=== PATIENT | female | born 1965 | race Caucasian/White ===

== ENCOUNTER 2020-05-13 09:51 | Outpatient (REF) | payer BC, SELFPAY ==
--- NOTE | 2020-05-13 10:02 | XR_ITS ---
EXAMINATION: XR CHEST CLINICAL INFORMATION: Chest pain. COMPARISON: None TECHNIQUE: 2 views of the chest were obtained. FINDINGS: No significant abnormality is noted involving the heart, lungs, mediastinum, bony thorax or soft tissues. XR/XR chest 2V IMPRESSION: Unremarkable chest examination.
[2020-05-13 11:10] LABS: MANUAL DIFF FLAG NO
[2020-05-13 11:24] LABS: Basophils Percent Auto 0.4 % (0-2); Eosinophils Absolute Auto 0.2 X10*3/uL (0.0-0.4); Eosinophils Percent Auto 2.7 % (0-4); Hematocrit 41.3 % (37-47); Imm Gran Abs Auto 0.02 X10*3/uL (0.00-0.03); Imm Gran Pct Auto 0.3 % (0.0-0.4); Lymphocytes Absolute Auto 1.8 X10*3/uL (1.2-4.9); Lymphocytes Percent Auto 25.1 % (20-40); Mean Corpuscular HGB Conc 33.9 g/dl (31.0-35.0); Mean Corpuscular Hemoglobin 31.6 pg (27.0-33.0); Mean Corpuscular Volume 93.2 fL (80-98); Mean Platelet Volume 9.5 fL (9.4-12.3); Monocytes Absolute Auto 0.4 X10*3/uL (0.1-1.2); Neutrophils Absolute Auto 4.6 X10*3/uL (2.0-8.3); Neutrophils Percent Auto 65.5 % (45-73); Platelet Count 196 X10*3/uL (160-400); Red Blood Count 4.43 X10*6/uL (4.20-5.50); Red Cell Distribution Width 12.3 % (11.0-16.0)
[2020-05-13 11:34] LABS: B Type Natriuretic Peptide 144 pg/mL (<100); Troponin-I High Sensitivity 7.6 ng/L (<3.5-17.0)
[2020-05-13 11:39] LABS: Prothrombin Time 11.6 SEC (10.8-13.0)
[2020-05-13 11:41] LABS: Alanine Aminotransferase 14 U/L (0-31); Albumin Level 4.5 g/dL (3.5-5.0); Alkaline Phosphatase 59 U/L (39-117); Anion Gap 13 (12-20); Aspartate Amino Transferase 16 U/L (5-31); Bilirubin Total 0.4 mg/dL (0.0-1.0); Blood Urea Nitrogen 16 mg/dL (9-16); Calcium 8.9 mg/dL (8.4-10.2); Carbon Dioxide 26 mmol/L (22-29); Chloride 105 mmol/L (96-108); Estimated Glomerular Filt Rate > 60; Glucose Random 82 mg/dL (60-115); Potassium 4.1 mmol/L (3.3-5.1); Sodium 140 mmol/L (135-145); Total Protein 6.9 g/dL (6.5-8.0)
== END 2020-05-13 09:52 | disposition home or self-care (01) ==
LOC: HO.HMGCX 09:51
PROVIDERS: PCP Internal Medicine; Visit Provider Nurse Practitioner Family
DX: R07.9 Chest pain, unspecified (principal)
CPT/HCPCS: 36415; 71046; 80053; 83880; 84484; 85025; 85610

== ENCOUNTER 2020-05-14 05:51 | Emergency (ER) | payer BC, SELFPAY ==
--- NOTE | 2020-05-14 | ECG_ITS ---
Test Reason : REPEAT Blood Pressure : / mmHG Vent. Rate : 074 BPM Atrial Rate : 074 BPM P-R Int : 150 ms QRS Dur : 072 ms QT Int : 414 ms P-R-T Axes : 043 -01 086 degrees QTc Int : 459 ms Normal sinus rhythm Nonspecific ST and T wave abnormality Abnormal ECG When compared with ECG of 14-MAY-2020 05:55, T wave inversion less evident in Anterior leads Referred By: Generic ED Physician Electronically Signed By:FLAVIO VALADEZ
--- NOTE | 2020-05-14 05:55 | ECG_ITS ---
Test Reason : CP Blood Pressure : / mmHG Vent. Rate : 078 BPM Atrial Rate : 078 BPM P-R Int : 162 ms QRS Dur : 078 ms QT Int : 398 ms P-R-T Axes : 052 -02 089 degrees QTc Int : 453 ms Normal sinus rhythm ST & T wave abnormality, consider anterolateral ischemia Abnormal ECG When compared with ECG of 11-AUG-2010 06:31, T wave inversion no longer evident in Inferior leads T wave inversion now evident in Anterolateral leads Referred By: Abby Stubbs Electronically Signed By:FLAVIO VALADEZ
[2020-05-14 06:11] VITALS: BP 184/107; PULSE 80; RESP 16; O2SAT 99; BMI 31.4
--- NOTE | 2020-05-14 06:23 | XR_ITS ---
EXAMINATION: CHEST 1 VIEW CLINICAL INFORMATION: Chest pain. COMPARISON: 05/13/2020. TECHNIQUE: An AP view of the chest is provided. FINDINGS: The cardiac silhouette is not enlarged. The mediastinal and hilar contours are unremarkable. There are neither pleural effusions nor pneumothoraces. There are no consolidations. The osseous structures are unremarkable. XR/XR chest 1V IMPRESSION: No evidence for acute disease.
--- NOTE | 2020-05-14 06:24 | ED_ITS ---
HPI - Chest Pain General Chief Complaint: Chest Pain Stated Complaint: Chest pain Time Seen by Provider: 05/14/20 06:11 Source: patient Mode of arrival: ambulatory Limitations: no limitations History of Present Illness HPI narrative: Patient comes emergency room complaining of chest pain. Patient states she has had intermittent chest pain for the last 3 weeks, approximately 6 episodes in total. Patient states that usually she gets the chest pain around 3 in the morning, then self resolves. Today is the 2nd time in a row that she gets chest pain. Yesterday she went to see her primary care physician, labs and EKG were done, according to the patient she was told that her EKG was normal, labs were pending, but she was told to come to the emergency room if she had any further chest pain which she did. When patient arrived to the emergency room and she was getting an EKG done, she was still having chest pain, at this time, patient denies any chest pain which self-resolved. Patient denies diaphoresis or shortness of breath. Patient is known to have issues with high blood pressure, takes metoprolol and nifedipine, states she is compliant with her medication, took heard meds prior to arrival to the emergency room. MD complaint: chest pain Related Data Home Medications Medication Instructions Recorded Confirmed metoprolol succinate 200 mg 200 mg PO DAILY 03/10/20 04/21/20 tablet,extended release 24 hr Previous Rx's Medication Instructions Recorded metoprolol succinate 200 mg 200 mg PO DAILY 30 Days #30 tab 03/10/20 tablet,extended release 24 hr simvastatin 20 mg tablet 20 mg PO DAILY 90 Days #90 tab 03/27/20 lorazepam 0.5 mg tablet 0.5 mg PO DAILY PRN 30 Days #30 tab 04/21/20 omeprazole 20 mg capsule,delayed 20 mg PO DAILY 90 Days #90 cap 05/11/20 release sertraline 100 mg tablet 100 mg PO DAILY 90 Days #90 tab 05/11/20 omeprazole 40 mg capsule,delayed 40 mg PO DAILY #30 cap 05/13/20 release Allergies Allergy/AdvReac Type Severity Reaction Status Date / Time No Known Allergies Allergy Verified 04/20/20 14:23 Review of Systems Review of Systems: Constitutional : No Weight loss, No Fever, No Chills, No Night Sweats, No Fatigue, No Malaise ENT/Mouth : No Hearing loss, No Ear Pain, No Nasal Congestion, No Sinus Pain, No Hoarseness, No sore throat, No Rhinorrhea, No Swallowing Difficulty Eyes: No Eye Pain, No Swelling, No Redness, No Foreign Body, No Discharge, No Vision Changes Cardiovascular : Complaining of intermittent chest pain, No SOB, No Dyspnea on Exertion, No Orthopnea, No Edema, No Palpitations Respiratory : No Cough, No Sputum, No Wheezing, No Smoke Exposure, No Dyspnea Gastrointestinal : No Nausea, No Vomiting, No Diarrhea, No Constipation, No abdominal Pain, No Hematochezia, No Melena Genitourinary : no irregular bleeding, No Dysuria, No Urinary Frequency, No Hematuria, No Urinary Incontinence, No Urgency, No Flank Pain, No Urinary Flow Changes, No Hesitancy Musculoskeletal : No joint pain, No Myalgias, No Joint Swelling Skin : No Skin Lesions, No rash Neuro : No Weakness, No Numbness, No Paresthesias, No Loss of Consciousness, No Dizziness, No Headache Psych : No Anxiety/Panic, No Depression, No SI/HI/AH/VH, No Social Issues, Heme/Lymph: No Bruising, No Bleeding,No Lymphadenopathy Endocrine : No Polyuria, No Polydipsia, No Temperature Intolerance PMF Past Medical History Surgical History History of colonoscopy Status post lumbar microdiscectomy Family History Family History Father No problems noted. Mother No problems noted. Maternal Grandmother Unknown family medical history Maternal Grandfather Unknown family medical history Paternal Grandmother Unknown family medical history Brother No problems noted. Brother No problems noted. Sister No problems noted. Sister No problems noted. Sister No problems noted. Son No problems noted. Daughter No problems noted. Social History Social History Advance Directives: No Physical Exam Vital Signs: Vital Signs: Last Vital Signs Pulse 80 05/14/20 06:11 Resp 16 05/14/20 06:11 BP 184/107 H 05/14/20 06:11 Pulse Ox 99 05/14/20 06:11 Body Mass Index 31.4 Appearance: Alert. Oriented X3. No acute distress. Eyes: Pupils equal, round and reactive to light. ENT: Pharynx normal. Neck: Normal inspection. Neck supple. No lymph nodes noted. No crepitus CVS: Normal heart rate and rhythm. Pulses normal. Normal S1 and S2 Respiratory: No respiratory distress. Breath sounds normal. No Wheezing. No rales Abdomen: Soft and nontender. No rigidity. No distention. good BS x4 Skin: Skin warm and dry. Normal skin color. Normal skin turgor. Extremities: No lower extremity edema. No lower extremity edema. No Lacerations. No Rash Neuro: Oriented X 3. No motor deficit. No sensory deficit. Moving all extermities. No slurred speech. Course Course Course Narrative: At this time, patient is asymptomatic, patient resolved sh ortly after she arrived to the emergency room. Her EKG on arrival shows ST segment depression of 1 mm in leads V2 V3 V4, at this time we do not have any previous EKGs other than in 2010 which was normal. Two EKGs were obtained, 1 with chest pain and the 2nd EKG without chest pain, both of them look similar as mentioned above. Although labs are pending. Sign-out given to Dr. Siegel [facility] - Chest Pain Lab Data Result diagrams: 05/14/20 06:00 05/14/20 06:00 Labs: Lab Results 05/14/20 Range/Units 06:00 WBC 7.3 (4.8-10.8) X10*3/uL RBC 4.38 (4.20-5.50) X10*6/uL Hgb 13.9 (12.0-16.0) g/dl Hct 41.6 (37-47) % MCV 95.0 (80-98) fL MCH 31.7 (27.0-33.0) pg MCHC 33.4 (31.0-35.0) g/dl RDW 12.5 (11.0-16.0) % Plt Count 173 (160-400) X10*3/uL MPV 9.2 L (9.4-12.3) fL Immature Gran % (Auto) 0.3 (0.0-0.4) % Neut % (Auto) 70.4 (45-73) % Lymph % (Auto) 20.2 (20-40) % [place] % (Auto) 5.8 (2-11) % Eos % (Auto) 2.6 (0-4) % Baso % (Auto) 0.7 (0-2) % Lymph # (Auto) 1.5 (1.2-4.9) X10*3/uL [place] # (Auto) 0.4 (0.1-1.2) X10*3/uL Eos # (Auto) 0.2 (0.0-0.4) X10*3/uL Baso # (Auto) 0.1 (0.0-0.2) X10*3/uL Abs Immat Gran (auto) 0.02 (0.00-0.03) X10*3/uL Absolute Neuts (auto) 5.1 (2.0-8.3) X10*3/uL Absolute Nucleated RBC 0.000 (0.0-0.012) X10*3/uL Nucleated RBC % (auto) 0.0 (0.0-0.2) /100WBC ECG Data ECG #1: Attestation: I personally reviewed and interpreted this ECG as follows: (EKG 1: Sinus rhythm, heart rate 78, QTC 453, ST segment depressions in V2 V3 V4, T-wave inversion in V2 ) Discharge Plan Discharge Clinical Impression: Chest pain Prescriptions: No Action metoprolol succinate 200 mg tablet extended release 24 hr 200 mg PO DAILY RF: 0 Hold Instructions: duplicate metoprolol succinate 200 mg tablet extended release 24 hr 200 mg PO DAILY 30 Days Qty: 30 RF: 3 simvastatin 20 mg tablet 20 mg PO DAILY 90 Days Qty: 90 RF: 0 omeprazole 20 mg capsule,delayed release(DR/EC) 20 mg PO DAILY 90 Days Qty: 90 RF: 0 sertraline 100 mg tablet 100 mg PO DAILY 90 Days Qty: 90 RF: 0 omeprazole 40 mg capsule,delayed release(DR/EC) 40 mg PO DAILY Qty: 30 RF: 0 lorazepam 0.5 mg tablet 0.5 mg PO DAILY PRN (Reason: anxiety) 30 Days Qty: 30 RF: 2
[2020-05-14 06:33] LABS: Imm Gran Abs Auto 0.02 X10*3/uL (0.00-0.03); MANUAL DIFF FLAG SCAN; Monocytes Percent Auto 5.8 % (2-11); SCAN SMEAR FLAG 1
[2020-05-14 06:40] LABS: Basophils Absolute Auto 0.1 X10*3/uL (0.0-0.2); Basophils Percent Auto 0.7 % (0-2); Eosinophils Absolute Auto 0.2 X10*3/uL (0.0-0.4); Eosinophils Percent Auto 2.6 % (0-4); Hematocrit 41.6 % (37-47); Hemoglobin 13.9 g/dl (12.0-16.0); Imm Gran Pct Auto 0.3 % (0.0-0.4); Lymphocytes Absolute Auto 1.5 X10*3/uL (1.2-4.9); Lymphocytes Percent Auto 20.2 % (20-40); Mean Corpuscular HGB Conc 33.4 g/dl (31.0-35.0); Mean Corpuscular Hemoglobin 31.7 pg (27.0-33.0); Mean Platelet Volume 9.2 fL (9.4-12.3); Monocytes Absolute Auto 0.4 X10*3/uL (0.1-1.2); Neutrophils Absolute Auto 5.1 X10*3/uL (2.0-8.3); Neutrophils Percent Auto 70.4 % (45-73); Platelet Count 173 X10*3/uL (160-400); Red Blood Count 4.38 X10*6/uL (4.20-5.50); Red Cell Distribution Width 12.5 % (11.0-16.0); White Blood Count 7.3 X10*3/uL (4.8-10.8)
--- NOTE | 2020-05-14 06:41 | PC.NURSE ---
PT TO ED WITH C/O MID STERNAL CP WHICH STARTED ON & OFF X 1MONTH. PT ARRIVES ALERT, RESPIRATIONS EASY, N/L. SKIN W/D. PT ON MONITOR WITH HR 89. PT CHG INTO GOWN. MD AT BEDSIDE FOR EVAL. X-RAY IN ROOM FOR CXR. IV PLACED TO LAC, LABS DRAWN TO LAB. PT AWAITING FURTHER ORDERS. PT DENIES CP AT THIS TIME. WILL CONTINUE TO MONITOR PT.
[2020-05-14] MEDS: Aspirin Enteric Coated 325 MG TABLET.DR PO (07:00)
[2020-05-14 07:01] VITALS: BP 172/100; PULSE 70
[2020-05-14] MEDS: Labetalol HCL 100 MG/20 ML VIAL 10 MG IVPUSH (07:01)
[2020-05-14 07:05] LABS: Anion Gap 15 (12-20); Blood Urea Nitrogen 14 mg/dL (9-16); Calcium 9.2 mg/dL (8.4-10.2); Carbon Dioxide 27 mmol/L (22-29); Chloride 103 mmol/L (96-108); Creatinine Clr Calc Pharmacy 85.9; Estimated Glomerular Filt Rate > 60; Glucose Random 106 mg/dL (60-115); Potassium 4.2 mmol/L (3.3-5.1); Sodium 141 mmol/L (135-145)
[2020-05-14 07:12] LABS: B Type Natriuretic Peptide 121 pg/mL (<100); Troponin-I High Sensitivity 7.1 ng/L (<3.5-17.0)
[2020-05-14 07:19] VITALS: BP 165/121; PULSE 68; O2SAT 99
--- NOTE | 2020-05-14 07:22 | PC.NURSE ---
Addendum entered by Jeniffer Rodríguez 05/14/20 07:23: Pt reports she was seen at PCP office yesterday where lab and x ray were done. states her BP was elevated in office. no adjustments were made to meds at that time. Original Note: report taken form Melina SUTTON. pt resting comfortably on stretcher. reports no chest pain at this time. BP is elevated, but coming down, medicated by prior RN. will monitor BP.
[2020-05-14 08:03] VITALS: BP 161/94; PULSE 77; O2SAT 99
--- NOTE | 2020-05-14 08:05 | ECG_ITS ---
Test Reason : CHEST PAIN Blood Pressure : / mmHG Vent. Rate : 066 BPM Atrial Rate : 066 BPM P-R Int : 156 ms QRS Dur : 076 ms QT Int : 452 ms P-R-T Axes : 049 -02 097 degrees QTc Int : 473 ms Normal sinus rhythm Nonspecific ST and T wave abnormality Abnormal ECG When compared with ECG of 14-MAY-2020 06:29, No significant change was found Referred By: Abby Stubbs Electronically Signed By:FLAVIO VALADEZ
--- NOTE | 2020-05-14 08:41 | CA_ITS ---
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 The visually estimated ejection fraction is between 65-70%. - No obvious valvular pathology seen on this study. Findings Procedure Information Contrast agent, definity, is being given per protocol without apparent complications. Left Ventricle Normal left ventricular cavity size. There is normal left ventricular wall thickness. The left ventricular systolic function is normal. The visually estimated ejection fraction is between 65-70%. There is no evidence of regional wall motion abnormalities. Diastolic function is normal for age. Right Ventricle Normal right ventricular cavity size and systolic function. Atria Both atria are normal in size. Aortic Valve There is a normal trileaflet aortic valve. There is no aortic valve stenosis. There is no aortic valve regurgitation. Mitral Valve The mitral valve appears normal. There is mild mitral annular calcification. There is trace mitral valve regurgitation. There is no mitral valve stenosis. Pulmonic Valve The pulmonic valve was not well visualized. Tricuspid Valve Normal tricuspid valve structure. There is trace tricuspid valve regurgitation. The pulmonary artery systolic pressure is normal. Great Vessels The aortic annulus, sinuses of valsalva, and asc aorta are normal in size. Venous The inferior vena cava is normal in size and collapses greater than 50% with inspiration. Pericardium/Pleural There is no evidence of pericardial effusion. Prior Study Comparison No significant change compared to prior study dated: 11/25/2016. Recommendations, Care & Conclusions No obvious valvular pathology seen on this study. Measurements 2D Linear Measurements IVSd: 0.84 0.6-0.9/0.6-1.0 cm LVIDd: 4.41 3.9-5.3/4.2-5.9 cm LVIDd Index: 2.35 2.4-3.2/2.2-3.1 cm/m2 LVIDs: 3.01 2.0-3.6 cm LVPWd: 0.88 0.7-1.1 cm Ao Root: 3.00 2.1-3.5 cm LA Diam: 3.10 2.7-3.8/3.0-4.0 cm LAIDs Index: 1.65 1.5-2.3 cm/m2 LV Mass: 150.01 67-162/88-224 g LV Mass Index: 79.79 43-95/49-115 g/m2 LVOT Diam: 2.00 3.0+(-)1.3 cm 2D Systolic Function EF 4C: 72.60 >55% EF 2C: 66.20 >55% EF BiP: 69.10 >55% Mitral Valve MV Pk E: 1.00 MV PK A: 0.91 MV Decel Time: 266.00 E/A: 1.10 E'Lateral: 10.70 E'Medial: 6.74 E/E' Med: 14.80 E/E' Lat: 9.30 PHT: 78.00 MVA PHT: 2.82 Decel [place]: 3.77 Aortic Valve AoV Pk Rao: 1.55 AoV Mn Rao: 1.07 AoV VTI: 0.32 AoV Pk Grad: 10.00 Aov Mn Grad: 5.00 TRAVIS Cont.VTI: 3.18 LVOT LVOT Pk Rao: 1.47 LVOT Mn Rao: 0.98 LVOT VTI: 0.32 LVOT Pk Grad: 9.00 LVOT Mn Grad: 4.00 LVOT Diam: 2.00 LVOT Area: 3.14 Diastolic Function MV Pk E: 1.00 MV Pk A: 0.91 E/A: 1.10 E'Medial: 6.74 E/E' Med: 14.80 E' Laterial: 10.70 E/E' Lat: 9.30 Tricuspid Valve TR Pk Rao: 2.30 TR Pk Grad: 21.00 RA Press: 3.00 RVSP: 24.00 Great Vessels Aorta Ao Root-2D: 3.00 2.0-3.7 cm Ao Asc: 2.80 2.1-3.4 cm Ao Arch: 3.10 Updated in Other Vendor System with Status of Final Judah White MD electronically signed on 05/14/2020 11:51:26 AM with status of Final
[2020-05-14 09:19] VITALS: BMI 29.7
[2020-05-14] MEDS: Heparin Sodium,Porcine/1/2NS 25,000 UNIT/250 ML IV.SOLN 10.26 UNIT IVCONT (09:28)
[2020-05-14 09:31] VITALS: BP 188/93; PULSE 69
[2020-05-14] MEDS: Atorvastatin Calcium 80 MG TABLET PO (09:31)
[2020-05-14] MEDS: Metoprolol Tartrate 50 MG TABLET PO (09:31)
[2020-05-14 09:53] LABS: Hematocrit 40.4 % (37-47); Mean Corpuscular HGB Conc 34.7 g/dl (31.0-35.0); Mean Corpuscular Volume 92.2 fL (80-98); Mean Platelet Volume 9.1 fL (9.4-12.3); Platelet Count 166 X10*3/uL (160-400); Red Blood Count 4.38 X10*6/uL (4.20-5.50); Red Cell Distribution Width 12.4 % (11.0-16.0); White Blood Count 7.9 X10*3/uL (4.8-10.8)
[2020-05-14 10:01] LABS: Prothrombin Time 11.8 SEC (10.8-13.0)
[2020-05-14 10:01] LABS: COVID-19 Test Negative (Negative); IDNOW Serial# 9DD0AD1C
--- NOTE | 2020-05-14 10:41 | PC.NURSE ---
@10:32AM BLAKE FROM [facility] PT PLACEMENT CALLS FOR COVID RESULTS TOLD THE WERE NEGATIVE, [place] THEY WILL CALL BACK WITH ROOM ASSIGNMENT SOON
--- NOTE | 2020-05-14 10:51 | PC.NURSE ---
@1050AM BLAKE CALLS FROM [facility] WITH ROOM ASSIGNMENT AND ACCEPTING MD DR BONILLA ACCEPTING TO [facility], ROOM 7 RN TO RN [phone]
--- NOTE | 2020-05-14 10:53 | P.CONCA_ITS ---
History of Present Illness History of Present Illness Date of Service: 05/14/20 Consult reason: chest pain Chief complaint: Chest pain Narrative: This is a cardiology consultation regarding chest pain. Patient does not have any known cardiac problems. No history of any coronary disease myocardial infarction or cardiomyopathy or in fact anything else cardiac in her past. She has had hypertension for more than 30 years. Otherwise she also has elevated lipids on statins. She is a chronic smoker. For the last 3 weeks, she has been having episodes of chest discomfort in the substernal area. She also has bilateral shoulder discomfort. These happen primarily at night times. Overall, has happened about 5-6 times. Hence she presented to the ER for evaluation. Review of Systems Review of Systems: Yes all other systems are reviewed and are negative Cardiovascular: Cardiovascular: Reports as per HPI, Reports no additional cardiovascular complaints, Denies acrocyanosis, Denies cool extremities, Denies painful fingertips, Reports chest pain, Denies chest pain at rest, Denies diaphoresis, Denies syncope, Denies irregular heart rhythm, Denies claudication, Denies leg edema, Denies lightheadedness, Denies palpitations and Denies dyspnea Respiratory: Respiratory: Denies dyspnea Neurologic: Denies syncope Endocrine: Endocrine: Denies palpitations PMFSH Family History Family History Father No problems noted. Mother No problems noted. Maternal Grandmother Unknown family medical history Maternal Grandfather Unknown family medical history Paternal Grandmother Unknown family medical history Brother No problems noted. Brother No problems noted. Sister No problems noted. Sister No problems noted. Sister No problems noted. Son No problems noted. Daughter No problems noted. Surgical History Surgical History History of colonoscopy Status post lumbar microdiscectomy Social History Social History Smoking Status: Current every day smoker Use of substances other than those prescribed or required for medical reasons: No Advance Directives: No Meds Allergies Allergy/AdvReac Type Severity Reaction Status Date / Time No Known Allergies Allergy Verified 04/20/20 14:23 Home Medications Medication Instructions Recorded Confirmed Type metoprolol succinate 200 mg 200 mg PO DAILY 03/10/20 04/21/20 History tablet,extended release 24 hr Physical Exam Vital Signs: Vital Signs: Last Vital Signs Pulse 69 05/14/20 09:31 Resp 16 05/14/20 06:11 BP 188/93 H 05/14/20 09:31 Pulse Ox 99 05/14/20 08:03 Body Mass Index 29.7 Const: General: cooperative, comfortable and no acute distress Orientation/consciousness: patient oriented x3 HENMT: Other: Unremarkable Neck: Neck: Yes normal visual inspection Chest: Chest palpation & inspection: normal inspection of the chest Resp: Auscultation: clear to auscultation bilaterally, no crackles and no wheezes Cardio: Jugular venous distension: no JVD Palpation: normal PMI Heart sounds: S1 normal heart sound present, S2 normal heart sound present, no gallops, Murmur heart sound present systolic early, I/ and at the right sternal border and no rubs GI: Palpation (GI): Soft to palpation Back/Spine/Pelvis: Other: unremarkable Skin: General skin exam: no rashes or lesions noted Neuro: General: patient oriented x3 Extrem: General: Yes no clubbing, cyanosis or edema Psych: Mental Status: mental status grossly normal Results Labs and Meds Result diagrams: 05/14/20 09:38 05/14/20 06:00 Lab results: Laboratory Results - last 24 hr 05/14/20 05/14/20 05/14/20 06:00 06:00 06:00 WBC 7.3 RBC 4.38 Hgb 13.9 Hct 41.6 MCV 95.0 MCH 31.7 MCHC 33.4 RDW 12.5 Plt Count 173 MPV 9.2 L Immature Gran % (Auto) 0.3 Neut % (Auto) 70.4 Lymph % (Auto) 20.2 [place] % (Auto) 5.8 Eos % (Auto) 2.6 Baso % (Auto) 0.7 Lymph # (Auto) 1.5 [place] # (Auto) 0.4 Eos # (Auto) 0.2 Baso # (Auto) 0.1 Abs Immat Gran (auto) 0.02 Absolute Neuts (auto) 5.1 Absolute Nucleated RBC 0.000 Nucleated RBC % (auto) 0.0 Smear Tech's Comments Not Reportable PT INR PTT (Heparin Protocol) Sodium 141 Potassium 4.2 Chloride 103 Carbon Dioxide 27 Anion Gap 15 BUN 14 Creatinine 0.79 Estim Creat Clear Calc 85.9 Estimated GFR > 60 Random Glucose 106 Calcium 9.2 Troponin I High Sens 7.1 B-Natriuretic Peptide 121 H COVID-19 ([facility]) COVID-19 Clin Com 05/14/20 05/14/20 05/14/20 09:38 09:38 09:39 WBC 7.9 RBC 4.38 Hgb 14.0 Hct 40.4 MCV 92.2 MCH 32.0 MCHC 34.7 RDW 12.4 Plt Count 166 MPV 9.1 L Immature Gran % (Auto) Neut % (Auto) Lymph % (Auto) [place] % (Auto) Eos % (Auto) Baso % (Auto) Lymph # (Auto) [place] # (Auto) Eos # (Auto) Baso # (Auto) Abs Immat Gran (auto) Absolute Neuts (auto) Absolute Nucleated RBC 0.000 Nucleated RBC % (auto) 0.0 Smear Tech's Comments PT 11.8 INR 1.0 PTT (Heparin Protocol) 31.0 L Sodium Potassium Chloride Carbon Dioxide Anion Gap BUN Creatinine Estim Creat Clear Calc Estimated GFR Random Glucose Calcium Troponin I High Sens B-Natriuretic Peptide COVID-19 ([facility]) Negative COVID-19 Clin Com See Note ECG Attestation: I personally reviewed and interpreted this ECG as follows: Interpretation: EKG with sinus rhythm and anterolateral ST sagging with T inversions in aVL. Imaging Radiologist's impression: Impressions Chest X-Ray 05/14/20 06:23 IMPRESSION: No evidence for acute disease. Assessment and Plan (1) Unstable angina: Status: Acute (2) Hypertension, essential: Status: Acute 3 weeks of intermittent chest pain associated with bilateral shoulder pain; EKG with anterolateral ischemia. Troponins are 7.1 and 7.6 (high sensitivity troponin I). She will need to be treated as unstable angina/acute coronary syndrome. Discussed about cardiac catheterization as next step and she is agreeable. Discussed with [facility] and they will accept her. We can start her on IV heparin drip. Continue aspirin. Overall beta-blockers. High-dose st atins. We will try to get an echocardiogram as well for LVEF and wall motion.
[2020-05-14 11:19] VITALS: BP 181/95; PULSE 64; RESP 17; O2SAT 97
== END 2020-05-14 11:28 | disposition short-term general hospital (02) ==
PROVIDERS: Emergency Medicine; Emergency Provider Emergency Medicine; PCP Internal Medicine
DX: I20.0 Unstable angina (principal); I10 Essential (primary) hypertension; R07.9 Chest pain, unspecified; Z79.899 Other long term (current) drug therapy; Z20.822 Contact with and (suspected) exposure to COVID-19
CPT/HCPCS: 36415; 71045; 80048; 83880; 84484; 85025; 85027; 85610; 85730; 87635; 93005; 93306; 96365; 96366; 96375; 99285; Q9957

== ENCOUNTER 2020-05-30 12:34 | Outpatient (REF) | payer BC, SELFPAY ==
--- NOTE | ~2020-05-30 | MM_ITS ---
EXAMINATION: MM SCREENING DIGITAL BREAST TOMOSYNTHESIS, BILATERAL CLINICAL INFORMATION: Screening. Asymptomatic. The lifetime risk of breast cancer based on the Tyrer-Cuzick Model is 8%. COMPARISON: Mammography: 08/14/2018, 07/05/2017 TECHNIQUE: Digital breast tomosynthesis is performed in both the craniocaudal and mediolateral oblique views along with computer-aided detection (CAD). Synthesized 2D images are generated from the tomosynthesis. FINDINGS: The breasts are almost entirely fatty (ACR BI-RADS breast composition Category a). There are no significant masses, abnormal calcifications, or other abnormalities. Parenchymal pattern is similar to prior studies. No significant changes. MM/MM tomosynthesis screening BI IMPRESSION: No mammographic evidence of malignancy. ASSESSMENT: BI-RADS 1: Negative RECOMMENDATION: Routine annual mammography screening. This patient's information was entered into a reminder system with a target due date for their next mammogram.
== END 2020-05-30 12:35 | disposition home or self-care (01) ==
LOC: HO.MAMMO 12:34
PROVIDERS: PCP Internal Medicine; Visit Provider Internal Medicine
DX: Z12.31 Encounter for screening mammogram for malignant neoplasm of breast (principal)
CPT/HCPCS: 77063; 77067

== ENCOUNTER → 2020-06-18 14:20 | Outpatient (BNVA) | payer BC, SELFPAY | PROVIDERS: PCP Internal Medicine; Visit Provider Internal Medicine ==

== ENCOUNTER → 2020-08-06 12:48 | Outpatient (BNVA) | payer BC, SELFPAY | PROVIDERS: PCP Internal Medicine; Visit Provider Physician Assistant ==

== ENCOUNTER 2020-08-14 06:06 | Outpatient (REF) | payer BC, SELFPAY ==
--- NOTE | ~2020-08-14 | FL_ITS ---
EXAMINATION: FL BARIUM SWALLOW CLINICAL INFORMATION: Gastroesophageal reflux disease without esophagitis. COMPARISON: None TECHNIQUE: Barium swallow examination is performed using fluoroscopic evaluation in addition to multiple fluoroscopic spot views. The patient is imaged both upright and prone and using both thick and thin sulfate along with effervescent granules. Fluoroscopy time: 2.2 minutes DAP: 22.106 Gycm2 Images: 45 FINDINGS: Following oral administration of thick barium and barium-coated turkey, there is normal propagation of bolus from the oral cavity through the pharynx, esophagus into stomach without any evidence of obstruction, narrowing or stricture. The course and the caliber of the esophagus is normal. The peristalsis is diminished with moderate retention of fluid within the dependent portion of esophagus which clears extremely slowly with thin barium. The gastroesophageal junction is widely patent. On administration of thin barium in prone position, there is good distention of esophagus without any intraluminal filling defect. Minimal gastroesophageal reflux was seen in supine view. No hiatal hernia noted. FL/FL barium swallow IMPRESSION: Moderate retention of barium-coated turkey/solid food in the mid esophagus in upright view likely secondary to slow or diminished peristalsis. The food cleared with oral administration of thin barium. The GE junction is widely patent. Likely minimal gastroesophageal reflux but no hiatal hernia. The esophagus is otherwise unremarkable.
[2020-08-14 12:00] LABS: Alanine Aminotransferase 41 U/L (0-31); Albumin Level 4.3 g/dL (3.5-5.0); Alkaline Phosphatase 95 U/L (39-117); Anion Gap 13 (12-20); Aspartate Amino Transferase 32 U/L (5-31); Bilirubin Direct 0.3 mg/dL (0.0-0.5); Bilirubin Total 0.5 mg/dL (0.0-1.0); Blood Urea Nitrogen 17 mg/dL (9-16); Calcium 9.1 mg/dL (8.4-10.2); Carbon Dioxide 26 mmol/L (22-29); Chloride 106 mmol/L (96-108); Cholesterol 183 mg/dL; Estimated Glomerular Filt Rate > 60; Glucose Fasting 94 mg/dL (60-99); HDL Cholesterol 61 mg/dL; LDL Cholesterol Calculated 105 mg/dl; Potassium 4.2 mmol/L (3.3-5.1); Sodium 141 mmol/L (135-145); Total Protein 6.6 g/dL (6.5-8.0); Triglycerides 86 mg/dL
== END 2020-08-14 06:07 | disposition home or self-care (01) ==
LOC: HO.XRAY 06:06
PROVIDERS: PCP Internal Medicine; Referring Provider Internal Medicine; Visit Provider Physician Assistant
DX: R07.9 Chest pain, unspecified (principal); K21.9 Gastro-esophageal reflux disease without esophagitis; I10 Essential (primary) hypertension; F41.1 Generalized anxiety disorder; E78.9 Disorder of lipoprotein metabolism, unspecified
CPT/HCPCS: 36415; 74220; 80048; 80061; 80076

== ENCOUNTER → 2020-08-20 14:24 | Outpatient (BNVA) | payer BC, SELFPAY | PROVIDERS: PCP Internal Medicine; Visit Provider Internal Medicine ==

== ENCOUNTER → 2020-09-10 12:25 | Outpatient (BNVA) | payer BC, SELFPAY | PROVIDERS: PCP Internal Medicine; Visit Provider Physician Assistant ==

== ENCOUNTER 2020-09-18 12:24 | Day surgery (SDC) | payer BC, SELFPAY ==
[2020-09-14 15:38] VITALS: BMI 29.2
--- NOTE | 2020-09-16 14:14 | P.CONAN_ITS ---
Documented by User: Aimee Ruth 09/16/20 14:19 HPI - Anesthesia Eval Consult details Narrative: 55yo F for Upper Endoscopy s/p cath 05/2020 with stent Brillinta/ASA for coronary stent 05/2020 [facility] Active Problems Active Problems: All Active Problems (Updated 09/14/20 @ 15:35 by Basilia Izaguirre) Hypertension, essential (Acute) Anxiety, generalized (Acute) Lipid disorder (Acute) Chronic GERD (Acute) Chest pain (Acute) Unstable angina (Acute) Hospital discharge follow-up (Acute) Dysphagia (Acute) Smoking (Acute) Other and unspecified hyperlipidemia (Acute) Essential hypertension (Acute) Atherosclerotic cardiovascular disease (Acute) Past Medical History Medical History Anxiety Atherosclerotic cardiovascular disease Dysphagia Essential hypertension GERD (gastroesophageal reflux disease) Hyperlipidemia On beta hina at home Other and unspecified hyperlipidemia Smoking Family History Family History (Reviewed 09/10/20 @ 12:33 by Teri Ignacio [facility]) Father Crohn's disease Colon cancer, Onset Age: 70 Mother No problems noted. Maternal Grandmother Unknown family medical history Maternal Grandfather Unknown family medical history Paternal Grandmother Unknown family medical history Brother No problems noted. Brother No problems noted. Sister No problems noted. Sister No problems noted. Sister No problems noted. Son No problems noted. Daughter No problems noted. Surgical History Surgical History H/O heart artery stent History of colonoscopy Status post lumbar microdiscectomy Social History Social History (Updated 09/10/20 @ 12:33 by Teri Ignacio [facility]) Household Members: Spouse Alcohol intake: current Alcohol intake frequency: holidays/special occasions only Patient Tobacco Use Status: Former Tobacco user Quit Date: 05/14/20 Tobacco use type: Cigarette Use of substances other than those prescribed or required for medical reasons: No Are you DNR?: No Advance Directives: No Advance Directives Information Provided: Yes Current occupational status: employed Current occupation: [employer] Allergies Allergy/AdvReac Type Severity Reaction Status Date / Time No Known Allergies Allergy Verified 09/14/20 15:36 Home Medications Medication Instructions Recorded Confirmed Last Taken Type aspirin 81 mg tablet,delayed 81 mg PO DAILY 06/18/20 09/14/20 Unknown History release nifedipine 60 mg tablet,extended 60 mg PO DAILY 06/18/20 09/14/20 Unknown History release Exam Exam Date and Time: September 16, 2020 1414 Height,Weight and Vital Signs: Height 5 ft 5 in Weight 79.832 kg Pertinent Lab Results Pertinent Lab Results: Laboratory Tests 05/14/20 08/14/20 09:38 06:10 WBC 7.9 Hgb 14.0 Hct 40.4 Plt Count 166 Sodium 141 Potassium 4.2 Chloride 106 Carbon Dioxide 26 BUN 17 H Creatinine 0.84 Narrative Narrative: Echo 05/2020 Conclusions: - The left ventricular systolic function is normal. The visually estimated ejection fraction is between 65-70%. - No obvious valvular pathology seen on this study. EKG 05/2020 NSR @ 65 Documented by User: Jaja Rubin 09/18/20 12:59 [facility] Past Medical History Medical History Anxiety Atherosclerotic cardiovascular disease Dysphagia Essential hypertension GERD (gastroesophageal reflux disease) Hyperlipidemia On beta hina at home Other and unspecified hyperlipidemia Smoking Family History Family History (Reviewed 09/10/20 @ 12:33 by Teri Ignacio [facility]) Father Crohn's disease Colon cancer, Onset Age: 70 Mother No problems noted. Maternal Grandmother Unknown family medical history Maternal Grandfather Unknown family medical history Paternal Grandmother Unknown family medical history Brother No problems noted. Brother No problems noted. Sister No problems noted. Sister No problems noted. Sister No problems noted. Son No problems noted. Daughter No problems noted. Surgical History Surgical History H/O heart artery stent History of colonoscopy Status post lumbar microdiscectomy Social History Social History (Updated 09/10/20 @ 12:33 by Teri Ignacio [facility]) Household Members: Spouse Alcohol intake: current Alcohol intake frequency: holidays/special occasions only Patient Tobacco Use Status: Former Tobacco user Quit Date: 05/14/20 Tobacco use type: Cigarette Use of substances other than those prescribed or required for medical reasons: No Are you DNR?: No Advance Directives: No Advance Directives Information Provided: Yes Current occupational status: employed Current occupation: [employer] Allergies Allergy/AdvReac Type Severity Reaction Status Date / Time No Known Allergies Allergy Verified 09/14/20 15:36 Home Medications Medication Instructions Recorded Confirmed Last Taken Type aspirin 81 mg tablet,delayed 81 mg PO DAILY 06/18/20 09/14/20 Unknown History release nifedipine 60 mg tablet,extended 60 mg PO DAILY 06/18/20 09/14/20 Unknown History release Exam Airway Mallampati Class: II (Cap bottom left) TM Dist: >3cm Partial: Upper (Perm) Heart: rrr Lungs: cta Assessment and Plan Assessment Anesthesia Assessment: Anesthesia Plan Discussed and Chart Reviewed Final Anesthetic Review NPO: Yes ASA Class: III Final Preanesthetic Review: No Changes in Pt Med Stat and Consent Obta ined/Reviewed Patient Risk: Intermediate Procedure Risk: Intermediate Anesthetic Plan Anesthetic Plan: MAC: Disposition: Standard PACU
[2020-09-18 12:39] VITALS: BP 143/84; PULSE 67; RESP 16; TEMP 35.7; O2SAT 98; BMI 29.7
[2020-09-18] MEDS: Lactated Ringers 1,000 ML 100 ML IVCONT (12:48)
--- NOTE | 2020-09-18 13:10 | P.OP_ITS ---
Operative Note Operative Note Date of Service: 09/18/20 Narrative: Pre-op diagnosis: GERD, atypical chest pain, dysphagia Post-op diagnosis: other (GERD, nodular gastritis, duodenal nodule) Procedure: FLEXIBLE TRANSORAL UPPER GASTROINTESTINAL ENDOSCOPY Consent: Indications for the procedure and potential complications of bleeding, perforation, reaction to medications and missed diagnosis were discussed with the patient and informed consent was obtained. Instrument: Olympus GIF H 190 mid size upper endoscope Monitoring: Vital signs and clinical assessment, continuous EKG monitoring, Pulse oximetry, Carbon Dioxide monitoring and blood pressure monitoring were done throughout the procedure. Procedure: The patient was placed in the left lateral decubitis position and pre-procedure medications were administered and a bite block was placed. The endoscope was inserted into the mouth and advanced under direct vision to the third part of duodenum. A careful inspection was made as the upper endoscope was withdrawn including a retroflexed examination of the proximal stomach; Findings and interventions are described below. Findings: Larynx: Normal Esophagus: Tortuous esophagus with increased tertiary contractions without stricture or ring. GE junction at 36 cms. No esophagitis or [place] Stomach: Moderate gastric erythema with nodular appearing mucosa in the gastric antrum. Grade 2 flap valve on retroflexed examination of the cardia. 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 And normal descending duodenum Intervention: No interventions since patient is unable to discontinue oral anticoagulation Impression and Post Procedure Diagnosis: Endoscopy Findings: ESOPHAGUS: Tortuous esophagus with increased tertiary contractions without stricture or ring. 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 And normal descending duodenum Chest pain is likely due to esophageal motility disorder. Plan: Patient advised to call the GI clinic at [phone] to schedule a follow-up appointment with KEATON Luis. I would advise scheduling a repeat endoscopy in 6-7 months once patient is able to stop her anticoagulation. Surgeon: Elda Muñoz MD Was an Software Support Technician used for this Procedure?: No Software Support Technician: Ilana Jimenez Estimated blood loss (mL): 0 Pathology: none sent Condition: stable Disposition: PACU
--- NOTE | 2020-09-18 13:10 | MHC.SHP ---
Pre-Procedural Eval Section A The patient is an INPATIENT: No Changes since office visit: Yes Patient answered all questions; No Cold of Flu in the past 2 weeks, No New Medical Problems and No Changes in Medication The History & Physical has been completed within 30 days and I have reviewed it.: Yes Section B Chief Complaint: Chronic GERD Allergies: Allergies Allergy/AdvReac Type Severity Reaction Status Date / Time No Known Allergies Allergy Verified 09/14/20 15:36 Plan I have reviewed the history and physical and performed a pertinent physical examination on my patient. No changes have occurred unless specified.
[2020-09-18 14:10] VITALS: BP 122/71; PULSE 78; RESP 18; TEMP 36.4; O2SAT 97
[2020-09-18 14:25] VITALS: BP 113/64; PULSE 65; RESP 20; O2SAT 98
== END 2020-09-18 14:55 | disposition home or self-care (01) ==
PROVIDERS: PCP Internal Medicine; Visit Provider Internal Medicine Gastroenterology
PROC: 0DJ08ZZ Inspection of Upper Intestinal Tract, Via Natural or Artificial Opening Endoscopic (ICD-10-PCS; CPT 43235; principal; 2020-09-18 13:40)
DX: K21.9 Gastro-esophageal reflux disease without esophagitis (principal); R07.89 Other chest pain; R13.10 Dysphagia, unspecified; K22.8 Other specified diseases of esophagus; K29.60 Other gastritis without bleeding; D13.2 Benign neoplasm of duodenum; I25.10 Atherosclerotic heart disease of native coronary artery without angina pectoris; I10 Essential (primary) hypertension; Z79.82 Long term (current) use of aspirin; Z79.899 Other long term (current) drug therapy; Z87.891 Personal history of nicotine dependence
CPT/HCPCS: 43239; J3010

== ENCOUNTER → 2020-10-20 12:26 | Outpatient (BNVA) | payer BC, SELFPAY | PROVIDERS: PCP Internal Medicine; Visit Provider Physician Assistant ==

== ENCOUNTER → 2020-11-26 14:32 | Outpatient (BNVA) | payer BC, SELFPAY | PROVIDERS: PCP Internal Medicine; Referring Provider Internal Medicine; Visit Provider Internal Medicine ==

== ENCOUNTER 2021-04-17 09:02 | Outpatient (REF) | payer BC, SELFPAY ==
[2021-04-17 09:14] LABS: MANUAL DIFF FLAG NO
[2021-04-17 09:28] LABS: Basophils Percent Auto 0.3 % (0-2); Eosinophils Absolute Auto 0.1 X10*3/uL (0.0-0.4); Eosinophils Percent Auto 1.8 % (0-4); Hematocrit 39.5 % (37.0-47.0); Hemoglobin 13.2 g/dl (12.0-16.0); Imm Gran Abs Auto 0.02 X10*3/uL (0.00-0.03); Imm Gran Pct Auto 0.3 % (0.0-0.4); Lymphocytes Absolute Auto 1.5 X10*3/uL (1.2-4.9); Lymphocytes Percent Auto 25.1 % (20-40); Mean Corpuscular HGB Conc 33.4 g/dl (31.0-35.0); Mean Corpuscular Hemoglobin 31.3 pg (27.0-33.0); Mean Corpuscular Volume 93.6 fL (80.0-98.0); Mean Platelet Volume 8.4 fL (9.4-12.3); Monocytes Absolute Auto 0.4 X10*3/uL (0.1-1.2); Monocytes Percent Auto 6.7 % (2-11); Neutrophils Percent Auto 65.8 % (45-73); Platelet Count 188 X10*3/uL (160-400); Red Blood Count 4.22 X10*6/uL (4.20-5.50); Red Cell Distribution Width 12.1 % (11.0-16.0)
[2021-04-17 09:59] LABS: Alanine Aminotransferase 31 U/L (0-31); Albumin Level 4.4 g/dL (3.5-5.0); Alkaline Phosphatase 66 U/L (39-117); Anion Gap 12 (12-20); Aspartate Amino Transferase 21 U/L (5-31); Bilirubin Direct 0.3 mg/dL (0.0-0.5); Bilirubin Total 0.5 mg/dL (0.0-1.0); Blood Urea Nitrogen 13 mg/dL (9-16); Calcium 9.2 mg/dL (8.4-10.2); Carbon Dioxide 26 mmol/L (22-29); Chloride 107 mmol/L (96-108); Cholesterol 172 mg/dL; Estimated Glomerular Filt Rate > 60; Glucose Random 100 mg/dL (60-115); HDL Cholesterol 51 mg/dL; LDL Cholesterol Calculated 108 mg/dl; Potassium 4.6 mmol/L (3.3-5.1); Sodium 140 mmol/L (135-145); Triglycerides 69 mg/dL
== END 2021-04-17 09:03 | disposition home or self-care (01) ==
LOC: HO.LAB 09:02
PROVIDERS: PCP Internal Medicine; Visit Provider Internal Medicine
DX: I25.10 Atherosclerotic heart disease of native coronary artery without angina pectoris (principal); I10 Essential (primary) hypertension; F41.1 Generalized anxiety disorder; E78.9 Disorder of lipoprotein metabolism, unspecified
CPT/HCPCS: 36415; 80053; 80061; 82248; 85025

== ENCOUNTER → 2021-06-07 14:17 | Outpatient (BNVA) | payer BC, SELFPAY | PROVIDERS: PCP Internal Medicine; Referring Provider Internal Medicine; Visit Provider Internal Medicine | DX: I25.10 Atherosclerotic heart disease of native coronary artery without angina pectoris (principal); I10 Essential (primary) hypertension; E78.5 Hyperlipidemia, unspecified; F17.200 Nicotine dependence, unspecified, uncomplicated; Z79.82 Long term (current) use of aspirin; Z79.899 Other long term (current) drug therapy | CPT/HCPCS: 93005 ==

== ENCOUNTER → 2021-06-21 14:56 | Outpatient (BNVA) | payer BC, SELFPAY | PROVIDERS: PCP Internal Medicine; Referring Provider Internal Medicine; Visit Provider Physician Assistant | DX: R07.9 Chest pain, unspecified (principal); K21.9 Gastro-esophageal reflux disease without esophagitis; Z79.899 Other long term (current) drug therapy; Z87.891 Personal history of nicotine dependence; Z12.11 Encounter for screening for malignant neoplasm of colon | CPT/HCPCS: 99212 ==

== ENCOUNTER 2021-08-03 15:48 | Outpatient (REF) | payer BC, SELFPAY ==
--- NOTE | ~2021-08-03 | MM_ITS ---
EXAMINATION: MM SCREENING DIGITAL BREAST TOMOSYNTHESIS, BILATERAL CLINICAL INFORMATION: Screening. Asymptomatic. The lifetime risk of breast cancer based on the Tyrer-Cuzick Model is 8%. COMPARISON: Mammography: 05/30/2020, 08/14/2018, 07/05/2017 TECHNIQUE: Digital breast tomosynthesis is performed in both the craniocaudal and mediolateral oblique views along with computer-aided detection (CAD). Synthesized 2D images are generated from the tomosynthesis. FINDINGS: The breasts are almost entirely fatty (ACR BI-RADS breast composition Category a). There are no significant masses, abnormal calcifications, or other abnormalities. Background stromal and fibroglandular densities in some scattered benign calcifications are similar to prior exam. The skin contours are smooth. MM/MM tomosynthesis screening BI IMPRESSION: No mammographic evidence of malignancy. ASSESSMENT: BI-RADS 1: Negative RECOMMENDATION: Routine annual mammography screening. This patient's information was entered into a reminder system with a target due date for their next mammogram.
== END 2021-08-03 15:49 | disposition home or self-care (01) ==
LOC: HO.MAMMO 15:48
PROVIDERS: PCP Internal Medicine; Visit Provider Internal Medicine
DX: Z12.31 Encounter for screening mammogram for malignant neoplasm of breast (principal)
CPT/HCPCS: 77063; 77067

== ENCOUNTER 2021-08-30 10:46 | Day surgery (SDC) | payer BC, SELFPAY ==
[2021-08-25 09:46] VITALS: BMI 29.9
--- NOTE | 2021-08-27 13:06 | P.CONAN_ITS ---
Documented by User: Aimee Ruth NP 08/27/21 13:11 HPI - Anesthesia Eval Consult details Narrative: 56yo F for Upper Endoscopy and Colonoscopy Cardiac cleared [facility] Active Problems Active Problems: All Active Problems (Updated 08/10/21 @ 15:19 by Duglas Nugent MD) Possible alcohol use disorder on screening for alcoholism (Acute) Encounter for screening colonoscopy (Acute) Hypertension, essential (Acute) Anxiety, generalized (Acute) Lipid disorder (Acute) Chronic GERD (Acute) Chest pain (Acute) Unstable angina (Acute) Hospital discharge follow-up (Acute) Dysphagia (Acute) Other and unspecified hyperlipidemia (Acute) Essential hypertension (Acute) Atherosclerotic cardiovascular disease (Acute) Past Medical History Medical History Anxiety Atherosclerotic cardiovascular disease Dysphagia Essential hypertension GERD (gastroesophageal reflux disease) Hyperlipidemia On beta hina at home Other and unspecified hyperlipidemia Smoking Family History Family History Father Crohn's disease Colon cancer, Onset Age: 70 Mother No problems noted. Maternal Grandmother Unknown family medical history Maternal Grandfather Unknown family medical history Paternal Grandmother Unknown family medical history Brother Substance use disorder Brother No problems noted. Sister No problems noted. Sister No problems noted. Sister No problems noted. Son No problems noted. Daughter No problems noted. Surgical History Surgical History H/O heart artery stent History of colonoscopy Status post lumbar microdiscectomy Social History Social History Household Members: Spouse Housing: House Alcohol intake: current Alcohol intake frequency: holidays/special occasions only Patient Tobacco Use Status: Former Tobacco user Quit Date: 05/14/20 Tobacco use type: Cigarette Smoked in Last 30 Days: No e-Cigarette/Vaping Use: Never Used Use of substances other than those prescribed or required for medical reasons: No Are you DNR?: No Advance Directives: No Advance Directives Information Provided: Yes Recently lost weight without trying: No Nutrition Risks: No Nutritional Risk Current occupational status: employed Current occupation: [employer] Cognitive needs: No Hearing needs: No Vision needs: No Meds Allergies Allergy/AdvReac Type Severity Reaction Status Date / Time No Known Allergies Allergy Verified 08/10/21 15:01 Home Medications Medication Instructions Recorded Confirmed Last Taken Type aspirin 81 mg tablet,delayed 81 mg PO DAILY 06/18/20 08/25/21 Unknown History release (Adult Aspirin Regimen) Exam Exam Date and Time: August 27, 2021 1306 Height,Weight and Vital Signs: Height 5 ft 5 in Weight 81.647 kg Pertinent Lab Results Pertinent Lab Results: Laboratory Tests 04/17/21 04/17/21 09:12 09:12 WBC 6.0 Hgb 13.2 Hct 39.5 Plt Count 188 Sodium 140 Potassium 4.6 Chloride 107 Carbon Dioxide 26 BUN 13 Creatinine 0.84 Narrative Narrative: EKG 05/2021 sinus bradycardia, 55/Min; no significant ST-T changes and otherwise unremarkable. Cardiac catheterization-05/2020-proximal and mid LAD stenosis status post PCI.? No significant disease elsewhere. Echocardiogram 05/2020 Conclusions: - The left ventricular systolic function is normal.? The visually estimated ejection fraction is between 65-70%.? - No obvious valvular pathology seen on this study. ? Assessment and Plan Assessment Anesthesia Assessment: Chart Reviewed Documented by User: Jaja Rubin MD 08/30/21 12:01 [facility] Past Medical History Medical History Anxiety Atherosclerotic cardiovascular disease Dysphagia Essential hypertension GERD (gastroesophageal reflux disease) Hyperlipidemia On beta hina at home Other and unspecified hyperlipidemia Smoking Family History Family History Father Crohn's disease Colon cancer, Onset Age: 70 Mother No problems noted. Maternal Grandmother Unknown family medical history Maternal Grandfather Unknown family medical history Paternal Grandmother Unknown family medical history Brother Substance use disorder Brother No problems noted. Sister No problems noted. Sister No problems noted. Sister No problems noted. Son No problems noted. Daughter No problems noted. Family history of problems with anesthesia: No Surgical History Surgical History H/O heart artery stent History of colonoscopy Status post lumbar microdiscectomy History of Problems with Anesthesia: No Social History Social History Household Members: Spouse Housing: House Alcohol intake: current Alcohol intake frequency: holidays/special occasions only Patient Tobacco Use Status: Former Tobacco user Quit Date: 05/14/20 Tobacco use type: Cigarette Smoked in Last 30 Days: No e-Cigarette/Vaping Use: Never Used Use of substances other than those prescribed or required for medical reasons: No Are you DNR?: No Advance Directives: No Advance Directives Information Provided: Yes Recently lost weight without trying: No Nutrition Risks: No Nutritional Risk Current occupational status: employed Current occupation: [employer] Cognitive needs: No Hearing needs: No Vision needs: No Meds Allergies Allergy/AdvReac Type Severity Reaction Status Date / Time No Known Allergies Allergy Verified 08/10/21 15:01 Home Medications Medication Instructions Recorded Confirmed Last Taken Type aspirin 81 mg tablet,delayed 81 mg PO DAILY 06/18/20 08/25/21 Unknown History release (Adult Aspirin Regimen) Exam Airway Mallampati Class: II TM Dist: >3cm Neck ROM: Full Heart: rrr Lungs: cta Assessment and Plan Assessment Anesthesia Assessment: Anesthesia Plan Discussed and Chart Reviewed Final Anesthetic Review Family History of Problems with Anesthesia: No History of Problems with Anesthesia: No NPO: Yes ASA Class: III Final Preanesthetic Review: No Changes in Pt Med Stat, Meds/Allgs Chart Reviewed and Consent Obtained/Reviewed Patient Risk: Intermediate Procedure Risk: Intermediate Anesthetic Plan Anesthetic Plan: MAC: Disposition: Standard PACU
[2021-08-30 11:32] VITALS: BMI 28.8
[2021-08-30 11:39] VITALS: BP 142/76; PULSE 66; RESP 16; TEMP 35.8; O2SAT 96
[2021-08-30] MEDS: Lactated Ringers 1,000 ML 100 ML IVCONT (11:50)
--- NOTE | 2021-08-30 12:00 | MHC.SHP ---
Pre-Procedural Eval Section A Date of Service: 08/30/21 The patient is an INPATIENT: No The History & Physical has been completed within 30 days and I have reviewed it.: No Section B Chief Complaint: reflux,screening Details of Present Illness: Colon cancer screening, GERD Relevant Family History (Specify if Yes): Yes Relevant Social History: Tobacco Use (Former smoker) Present Medications: see Short Stay Collaborative assessment Medical History: Significant History (Anxiety Atherosclerotic cardiovascular disease Dysphagia Essential hypertension GERD (gastroesophageal reflux disease) Hyperlipidemia On beta hina at home Other and unspecified hyperlipidemia Smoking) History of Previous Operations: Relevant previous surgery/procedure and date(s) (H/O heart artery stent History of colonoscopy Status post lumbar microdiscectomy) Allergies: Allergies Allergy/AdvReac Type Severity Reaction Status Date / Time No Known Allergies Allergy Verified 08/10/21 15:01 Review of Systems Sugical H&P ROS: Negative: Constitution, Cardiovascular and Respiratory and Yes, Specify: Gastrointestinal (GERD, dysphagia) Exam Surgical H&P Exam: Normal: Heart, Normal: Lungs, Normal: Extremities and Normal: Abdomen Plan Diagnosis/Plan: Unchanged I have reviewed the history and physical and performed a pertinent physical examination on my patient. No changes have occurred unless specified.
--- NOTE | 2021-08-30 12:06 | P.BOP_ITS ---
Brief Operative Note Date of Service: 08/30/21 Pre-op diagnosis: Colon cancer screening, GERD, dysphagia Post-op diagnosis: other (GERD, gastric polyps, duodenal nodules, gastritis, diverticulosis.) Procedure: FLEXIBLE TRANSORAL UPPER GASTROINTESTINAL ENDOSCOPY WITH BIOPSIES AND ESOPHAGEAL BALLOON DILATION AND COLONOSCOPY TILL CECUM UPPER ENDOSCOPY Consent: Indications for the procedure and potential complications of bleeding, perforation, reaction to medications and missed diagnosis were discussed with the patient and informed consent was obtained. Instrument: Olympus GIF H 190 mid size upper endoscope Monitoring: Vital signs and clinical assessment, continuous EKG monitoring, Pulse oximetry, Carbon Dioxide monitoring and blood pressure monitoring were done throughout the procedure. Procedure: The patient was placed in the left lateral decubitis position and pre-procedure medications were administered and a bite block was placed. The endoscope was inserted into the mouth and advanced under direct vision to the third part of duodenum. A careful inspection was made as the upper endoscope was withdrawn including a retroflexed examination of the proximal stomach; Findings and interventions are described below. Findings: Larynx: Normal Esophagus: Tortuous esophagus without stricture or ring.???GE junction at 36 cms.? No esophagitis or [place] Biopsies obtained from proximal esophagus to check for EOE. Balloon dilation was performed with a 19 mm CRE balloon x 60 seconds. Stomach: A few 5 to 10 mm benign appearing polyps in the fundus and body of the stomach - biopsied. Moderate linear streaks of erythema with nodular appearing mucosa in the gastric antrum. Biopsies were obtained. Grade 2 flap valve on retroflexed examination of the cardia. 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 Normal descending duodenum Intervention: Biopsies as noted above COLONOSCOPY PROCEDURE NOTE Consent: Indications for the procedure and potential complications of bleeding, perforation, reaction to medications and missed diagnosis were discussed with the patient and informed consent was obtained. Instrument: Olympus PCF H 190 L variable stiffness pediatric colonoscope Monitoring: Vital signs and clinical assessment, intermittent blood pressure monitoring, continuous EKG monitoring, Pulse oximetry and Carbon Dioxide monitoring were done throughout the procedure. Colon withdrawl time was 18 minutes. Procedure: The patient was placed in the left lateral decubitis position and pre-procedure medications were administered. After a digital rectal examination of the ano-rectum, the video colonoscope was inserted into the rectum and advanced through the colon to the cecum. The colonoscope was slowly withdrawn in a retrograde panoramic fashion and the colon mucosa was carefully examined including a retroflexed view of the rectum. Findings and interventions are described below. Procedure Difficulty: Colon was long and tortuous and there was spasm and some loop formation. Findings: Terminal Ileum: Not evaluated Cecum: Normal Ascending Colon: Normal Transverse Colon: Normal Descending Colon: Normal Sigmoid Colon: Moderate diverticulosis Rectum: Normal Ano-rectum: Moderate internal hemorrhoids Colon preparation: Good Impression and Post Procedure Diagnosis: Endoscopy Findings: ESOPHAGUS: Tortuous esophagus without stricture or ring.???GE junction at 36 cms.? No esophagitis or [place] Biopsies obtained from proximal esophagus to check for EOE. Balloon dilation was performed with a 19 mm CRE balloon x 60 seconds. STOMACH: A few 5 to 10 mm benign appearing polyps in the fundus and body of the stomach - biopsied. Moderate linear streaks of erythema with nodular appearing mucosa in the gastric antrum. Biopsies were obtained. 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 Colonoscopy Findings: No polyps were detected Moderate diverticulosis seen in the sigmoid colon Moderate hemorrhoids on retroflexed exam. Plan: Await pathology results Patient has an appointment on 09/13/21 in the GI Clinic with KEATON Luis . If pt continues to have dysphagia, consider further evaluation with esophageal manometery Repeat Colonoscopy 9 - 10 years. Above findings were reviewed with the patient and Gastric Polyps and diverticulosis handouts were given in the discharge area Surgeon: Elda Muñoz MD Anesthesia: MAC (Dr Denise) Was an Promotions Producer used for this Procedure?: Yes Promotions Producer: Becca Schreiber Estimated blood loss (mL): 0 Pathology: other ( A. duodenal nodule bxs B. gastric antrum bxs, R/O H. pylori C. gastric polyp D. proximal esophagus bxs, R/O EoE) Condition: stable Disposition: PACU
--- NOTE | 2021-08-30 12:07 | W.PM.OPN ---
Operative Note Operative Note Date of Service: 08/30/21 Narrative: Pre-op diagnosis: Colon cancer screening, GERD, dysphagia Post-op diagnosis:?other (GERD, gastric polyps, duodenal nodules, gastritis, diverticulosis.) Procedure: FLEXIBLE TRANSORAL UPPER GASTROINTESTINAL ENDOSCOPY WITH BIOPSIES AND ESOPHAGEAL BALLOON DILATION AND COLONOSCOPY TILL CECUM UPPER ENDOSCOPY Consent:?Indications for the procedure and potential complications of bleeding, perforation, reaction to medications and missed diagnosis were discussed with the patient and informed consent was obtained. Instrument:?Olympus GIF H 190 mid size upper endoscope Monitoring: Vital signs and clinical assessment, continuous EKG monitoring, Pulse oximetry, Carbon Dioxide monitoring and blood pressure monitoring were done throughout the procedure. Procedure:?The patient was placed in the left lateral decubitis position and pre-procedure medications were administered and a bite block was placed. The endoscope was inserted into the mouth and advanced under direct vision to the third part of duodenum. A careful inspection was made as the upper endoscope was withdrawn including a retroflexed examination of the proximal stomach; Findings and interventions are described below. Findings: Larynx:? Normal Esophagus:?Tortuous esophagus without stricture or ring.???GE junction at 36 cms.? No esophagitis or Blackwood Biopsies obtained from proximal esophagus to check for EOE. Balloon dilation was performed with a 19 mm CRE balloon x 60 seconds. Stomach:?A few 5 to 10 mm benign appearing polyps in the fundus and body of the stomach - biopsied. Moderate linear streaks of erythema with nodular appearing mucosa in the gastric antrum.? Biopsies were obtained. Grade 2 flap? valve on retroflexed examination of the cardia. 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 Normal descending duodenum Intervention:?Biopsies as noted above COLONOSCOPY PROCEDURE NOTE Consent:?Indications for the procedure and potential complications of bleeding, perforation, reaction to medications and missed diagnosis were discussed with the patient and informed consent was obtained. Instrument:?Olympus PCF H 190 L variable stiffness pediatric colonoscope Monitoring:?Vital signs and clinical assessment, intermittent blood pressure monitoring, continuous EKG monitoring, Pulse oximetry and Carbon Dioxide monitoring were done throughout the procedure. Colon withdrawl time was 18 minutes. Procedure:?The patient was placed in the left lateral decubitis position and pre-procedure medications were administered. After a digital rectal examination of the ano-rectum, the video colonoscope was inserted into the rectum and advanced through the colon to the cecum. The colonoscope was slowly withdrawn in a retrograde panoramic fashion and the colon mucosa was carefully examined including a retroflexed view of the rectum. Findings and interventions are described below. Procedure Difficulty:? Colon was long and tortuous and there was spasm and some loop formation. Findings: Terminal Ileum: Not evaluated Cecum:? Normal Ascending Colon:??Normal Transverse Colon:??Normal Descending Colon:? Normal Sigmoid Colon:??Moderate diverticulosis Rectum:??Normal Ano-rectum:??Moderate internal hemorrhoids Colon preparation: Good? Impression and Post Procedure Diagnosis: Endoscopy Findings: ESOPHAGUS: Tortuous esophagus without stricture or ring.???GE junction at 36 cms.? No esophagitis or Blackwood Biopsies obtained from proximal esophagus to check for EOE. Balloon dilation was performed with a 19 mm CRE balloon x 60 seconds. STOMACH: A few 5 to 10 mm benign appearing polyps in the fundus and body of the stomach - biopsied. Moderate linear streaks of erythema with nodular appearing mucosa in the gastric antrum.? Biopsies were obtained. 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 Colonoscopy Findings: No polyps were detected Moderate diverticulosis seen in the sigmoid colon Moderate hemorrhoids on retroflexed exam. Plan: Await pathology results Patient has an appointment on 09/13/21 in the GI Clinic with KEATON Luis . If pt continues to have dysphagia, consider further evaluation with esophageal manometery Repeat Colonoscopy 9 - 10 years. Above findings were reviewed with the patient and Gastric Polyps and diverticulosis handouts were given in the discharge area Surgeon: Elda Muñoz MD Anesthesia:?MAC (Dr Denise) Was an Printing Press Operator Apprentice used for this Procedure?:?Yes Printing Press Operator Apprentice:?Becca Schreiber Estimated blood loss (mL):?0 Pathology:?other ( A. duodenal nodule bxs? B. gastric antrum bxs, R/O H. pylori? C. gastric polyp? D. proximal esophagus bxs, R/O EoE) Condition:?stable Disposition:?PACU
[2021-08-30 12:59] VITALS: BP 101/48; PULSE 61; RESP 16; TEMP 36.3; O2SAT 94
[2021-08-30 13:13] VITALS: BP 109/58; PULSE 60; RESP 16; TEMP 36.3; O2SAT 97
== END 2021-08-30 14:07 | disposition home or self-care (01) ==
PROVIDERS: PCP Internal Medicine; Visit Provider Internal Medicine Gastroenterology
PROC: (CPT 45378; principal; 2021-08-30 11:50)
DX: Z12.11 Encounter for screening for malignant neoplasm of colon (principal); K57.30 Diverticulosis of large intestine without perforation or abscess without bleeding; K64.8 Other hemorrhoids; K21.9 Gastro-esophageal reflux disease without esophagitis; R13.10 Dysphagia, unspecified; K22.89 Other specified disease of esophagus; K29.50 Unspecified chronic gastritis without bleeding; K31.7 Polyp of stomach and duodenum; K29.80 Duodenitis without bleeding; E78.5 Hyperlipidemia, unspecified; I10 Essential (primary) hypertension; I25.10 Atherosclerotic heart disease of native coronary artery without angina pectoris; Z98.61 Coronary angioplasty status; Z79.82 Long term (current) use of aspirin; Z79.899 Other long term (current) drug therapy; Z87.891 Personal history of nicotine dependence
CPT/HCPCS: 45378; 43249; 43239; 88305; 88342; C1726

== ENCOUNTER 2022-01-28 06:01 | Outpatient (REF) | payer BC, SELFPAY ==
[2022-01-28 11:20] LABS: MANUAL DIFF FLAG NO
[2022-01-28 11:39] LABS: Basophils Percent Auto 0.5 % (0-2); Eosinophils Absolute Auto 0.1 X10*3/uL (0.0-0.4); Eosinophils Percent Auto 2.3 % (0-4); Hematocrit 38.4 % (37.0-47.0); Hemoglobin 12.7 g/dl (12.0-16.0); Imm Gran Abs Auto 0.01 X10*3/uL (0.00-0.03); Imm Gran Pct Auto 0.2 % (0.0-0.4); Lymphocytes Absolute Auto 1.1 X10*3/uL (1.2-4.9); Lymphocytes Percent Auto 25.1 % (20-40); Mean Corpuscular HGB Conc 33.1 g/dl (31.0-35.0); Mean Corpuscular Hemoglobin 30.2 pg (27.0-33.0); Mean Corpuscular Volume 91.2 fL (80.0-98.0); Mean Platelet Volume 9.2 fL (9.4-12.3); Monocytes Absolute Auto 0.3 X10*3/uL (0.1-1.2); Monocytes Percent Auto 6.1 % (2-11); Neutrophils Absolute Auto 2.9 x10*3/uL (2.0-8.3); Neutrophils Percent Auto 65.8 % (45-73); Platelet Count 185 X10*3/uL (160-400); Red Blood Count 4.21 X10*6/uL (4.20-5.50); Red Cell Distribution Width 12.4 % (11.0-16.0); White Blood Count 4.4 X10*3/uL (4.8-10.8)
[2022-01-28 11:52] LABS: Cholesterol 156 mg/dL; HDL Cholesterol 47 mg/dL; LDL Cholesterol Calculated 95 mg/dl; Triglycerides 74 mg/dL
[2022-01-28 12:01] LABS: Alanine Aminotransferase 20 U/L (0-31); Albumin Level 4.3 g/dL (3.5-5.0); Alkaline Phosphatase 63 U/L (39-117); Anion Gap 14 (12-20); Aspartate Amino Transferase 21 U/L (5-31); Bilirubin Direct 0.3 mg/dL (0.0-0.5); Bilirubin Total 0.7 mg/dL (0.0-1.0); Blood Urea Nitrogen 19 mg/dL (9-16); Carbon Dioxide 25 mmol/L (22-29); Chloride 104 mmol/L (96-108); Cholesterol 153 mg/dL; Estimated Glomerular Filt Rate > 60; Glucose Fasting 101 mg/dL (60-99); HDL Cholesterol 46 mg/dL; LDL Cholesterol Calculated 93 mg/dl; Sodium 139 mmol/L (135-145); Total Protein 6.7 g/dL (6.5-8.0); Triglycerides 73 mg/dL
[2022-01-28 12:22] LABS: TSH reflex Free T4 1.45 uIU/mL (0.32-4.0)
[2022-01-28 13:04] LABS: Vitamin B12 343 pg/mL (200-900)
[2022-02-03 12:47] LABS: Vitamin D 25-OH, D2 <4 ng/mL; Vitamin D 25-OH, D3 19 ng/mL; Vitamin D 25-OH, Total 19 ng/mL (30-100)
== END 2022-01-28 06:02 | disposition home or self-care (01) ==
LOC: HO.HMGCLDS 06:01
PROVIDERS: Absent Provider Internal Medicine; PCP Internal Medicine; Visit Provider Internal Medicine
DX: E78.5 Hyperlipidemia, unspecified (principal); E78.9 Disorder of lipoprotein metabolism, unspecified; F17.200 Nicotine dependence, unspecified, uncomplicated; F41.1 Generalized anxiety disorder; I10 Essential (primary) hypertension; I25.10 Atherosclerotic heart disease of native coronary artery without angina pectoris; K21.9 Gastro-esophageal reflux disease without esophagitis; R25.2 Cramp and spasm
CPT/HCPCS: 36415; 80053; 80061; 80076; 82248; 82306; 82607; 84443; 85025

== ENCOUNTER 2022-06-27 09:34 | Outpatient (REF) | payer BC, SELFPAY ==
--- NOTE | ~2022-06-27 | XR_ITS ---
EXAMINATION: XR ANKLE, RIGHT CLINICAL INFORMATION: Pain right ankle COMPARISON: None available. TECHNIQUE: AP, lateral, and mortise views of the right ankle. FINDINGS: Mildly displaced obliquely oriented fracture involving the distal fibula at the level of the ankle mortise. Ankle mortise is symmetric. Plantar calcaneal heel spur. Joint spaces and alignment maintained. Soft tissue swelling overlying the lateral malleolus. XR/XR ankle RT min 3V IMPRESSION: 1. Mildly displaced obliquely oriented fracture involving the distal fibula at the level of the ankle mortise. 2. Soft tissue swelling overlying the lateral malleolus.
== END 2022-06-27 09:35 | disposition home or self-care (01) ==
LOC: HO.HMGCX 09:34
PROVIDERS: PCP Internal Medicine; Visit Provider Physician Assistant
DX: M25.571 Pain in right ankle and joints of right foot (principal)
CPT/HCPCS: 73610

== ENCOUNTER → 2022-07-01 08:26 | Outpatient (BNVA) | payer BC, SELFPAY | PROVIDERS: PCP Internal Medicine; Visit Provider Physician Assistant | DX: Z13.89 Encounter for screening for other disorder (principal) ==

== ENCOUNTER 2022-07-12 07:18 | Outpatient (REF) | payer BC, SELFPAY ==
[2022-07-12 11:39] LABS: MANUAL DIFF FLAG NO
[2022-07-12 11:49] LABS: Basophils Percent Auto 0.6 % (0-2); Eosinophils Absolute Auto 0.1 X10*3/uL (0.0-0.4); Eosinophils Percent Auto 2.3 % (0-4); Hematocrit 40.1 % (37.0-47.0); Hemoglobin 13.5 g/dl (12.0-16.0); Imm Gran Abs Auto 0.02 X10*3/uL (0.00-0.03); Imm Gran Pct Auto 0.3 % (0.0-0.4); Lymphocytes Absolute Auto 1.4 X10*3/uL (1.2-4.9); Lymphocytes Percent Auto 22.7 % (20-40); Mean Corpuscular HGB Conc 33.7 g/dl (31.0-35.0); Mean Corpuscular Hemoglobin 30.7 pg (27.0-33.0); Mean Corpuscular Volume 91.1 fL (80.0-98.0); Mean Platelet Volume 9.2 fL (9.4-12.3); Monocytes Absolute Auto 0.3 X10*3/uL (0.1-1.2); Neutrophils Absolute Auto 4.3 x10*3/uL (2.0-8.3); Neutrophils Percent Auto 69.1 % (45-73); Platelet Count 206 X10*3/uL (160-400); Red Cell Distribution Width 13.1 % (11.0-16.0); White Blood Count 6.2 X10*3/uL (4.8-10.8)
[2022-07-12 12:23] LABS: Alanine Aminotransferase 20 U/L (0-31); Albumin Level 4.3 g/dL (3.5-5.0); Alkaline Phosphatase 73 U/L (39-117); Anion Gap 11 (12-20); Aspartate Amino Transferase 16 U/L (5-31); Bilirubin Total 0.9 mg/dL (0.0-1.0); Blood Urea Nitrogen 19 mg/dL (9-16); Calcium 9.3 mg/dL (8.4-10.2); Carbon Dioxide 28 mmol/L (22-29); Chloride 106 mmol/L (96-108); Cholesterol 184 mg/dL; Estimated Glomerular Filt Rate > 60; Glucose Fasting 96 mg/dL (60-99); HDL Cholesterol 65 mg/dL; LDL Cholesterol Calculated 100 mg/dl; Potassium 4.3 mmol/L (3.3-5.1); Sodium 141 mmol/L (135-145); Total Protein 6.7 g/dL (6.5-8.0); Triglycerides 96 mg/dL
[2022-07-12 12:48] LABS: Estimated Average Glucose 100 mg/dL; Hemoglobin A1c % 5.1 %
== END 2022-07-12 07:19 | disposition home or self-care (01) ==
LOC: HO.HMGCLDS 07:18
PROVIDERS: PCP Internal Medicine; Visit Provider Internal Medicine
DX: F41.1 Generalized anxiety disorder (principal); E78.9 Disorder of lipoprotein metabolism, unspecified; I10 Essential (primary) hypertension; K21.9 Gastro-esophageal reflux disease without esophagitis; I25.10 Atherosclerotic heart disease of native coronary artery without angina pectoris; R73.01 Impaired fasting glucose; F17.200 Nicotine dependence, unspecified, uncomplicated
CPT/HCPCS: 36415; 80053; 80061; 83036; 85025

== ENCOUNTER 2022-07-15 05:52 | Outpatient (REF) | payer BC, SELFPAY ==
--- NOTE | ~2022-07-15 | XR_ITS ---
EXAMINATION: XR ANKLE, RIGHT CLINICAL INFORMATION: Fracture COMPARISON: Previous x-ray June 2022 TECHNIQUE: AP, lateral, and mortise views of the right ankle. FINDINGS: There is a minimally displaced fracture of the distal shaft of the fibula. Fracture line still seen. Alignment changed. Minimal visible callus formation. No other fracture. Normal ankle mortise. Adjacent lateral soft tissue swelling. XR/XR ankle RT min 3V IMPRESSION: Minimally displaced fracture of the distal shaft of the fibula.
== END 2022-07-15 05:53 | disposition home or self-care (01) ==
LOC: HO.HOSX 05:52
PROVIDERS: Visit Provider Physician Assistant
DX: S82.831D Other fracture of upper and lower end of right fibula, subsequent encounter for closed fracture with routine healing (principal); X58.XXXD Exposure to other specified factors, subsequent encounter
CPT/HCPCS: 73610

== ENCOUNTER 2022-08-26 07:21 | Outpatient (REF) | payer BC, SELFPAY ==
--- NOTE | ~2022-08-26 | XR_ITS ---
EXAMINATION: XR ANKLE, RIGHT CLINICAL INFORMATION: Pain. COMPARISON: Radiographs dated 07/15/2022. TECHNIQUE: AP, lateral, and mortise views of the right ankle. FINDINGS: Bony alignment and mineralization are normal. A mildly displaced fracture is seen of the distal right fibula, in stable alignment. There is mild periosteal callus formation. The ankle mortise remains intact. No dislocation or right ankle joint effusion is seen. Boehler's angle is normal. There is a small plantar calcaneal spur. No focal soft tissue swelling, gas or foreign body is seen. XR/XR ankle RT min 3V IMPRESSION: A mildly displaced fractures seen of the distal right fibula, in stable alignment.
== END 2022-08-26 07:22 | disposition home or self-care (01) ==
LOC: HO.HOSX 07:21
PROVIDERS: Visit Provider Physician Assistant
DX: S82.831D Other fracture of upper and lower end of right fibula, subsequent encounter for closed fracture with routine healing (principal)
CPT/HCPCS: 73610

== ENCOUNTER 2022-09-26 11:06 | Outpatient (REF) | payer BC, SELFPAY ==
--- NOTE | ~2022-09-26 | XR_ITS ---
EXAMINATION: XR ANKLE, RIGHT CLINICAL INFORMATION: Right ankle pain. COMPARISON: 08/26/2022 and studies dating back to 11/20/2017. TECHNIQUE: AP, lateral, and mortise views of the right ankle. FINDINGS: There is progression in healing of essentially nondisplaced distal right fibular fracture with fracture line not being well seen and some bony fusion being present. Ankle mortise appears congruent. Small plantar calcaneal spurs. XR/XR ankle RT min 3V IMPRESSION: No change in alignment with progression in healing of distal right fibular fracture.
== END 2022-09-26 11:07 | disposition home or self-care (01) ==
LOC: HO.HOSX 11:06
PROVIDERS: Visit Provider Physician Assistant
DX: S82.831D Other fracture of upper and lower end of right fibula, subsequent encounter for closed fracture with routine healing (principal)
CPT/HCPCS: 73610

== ENCOUNTER 2022-09-27 13:00 | Outpatient (RCR) | payer BC, SELFPAY ==
--- NOTE | 2022-09-01 12:06 | MHC.PT.EP ---
[facility] [place] Office [place] Office [place] Office [address] Silvia Noel [address] [phone] F: [phone] F: [phone] F: [phone] F: [phone] Physical Therapy Plan of Care Date of Evaluation: Date of Surgery: n/a Diagnosis: fx of distal end of R fibula Assessment: Patient is a 57 year old female presenting to PT s/p R distal fibula fx. Pt reports onset of pain began June 2022 due to tripping and falling. She presents today with impairments in pain, ankle ROM, ankle strength, balance. 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 Pt expresses skilled nursing goal of returning to PLOF, and is motivated to work towards this in PT. Clinical presentation today is most consistent with signs and sx associated with R distal fib fx and pt will benefit from skilled PT 2 week x 6 weeks to address the following problems and impairments noted upon evaluation: pain, ankle ROM, ankle strength, balance. These problems limit the patient with the following functional activities: ambulating, stair negotiation, ADLs, work. The prescribed treatment plan of care is medically necessary. Co-morbidities of HTN, cardiovascular disease were identified and taken into considerations of plan of care. Pt was educated on HEP, role of PT, prognosis, POC. Frequency and Duration: The patient will be seen 2 x week x 6 weeks Short Term Goals: Pt will demonstrate improved ankle ROM to equal B in 3 weeks. Pt will demonstrate ability to perform tandem stance x 30 sec in 3 weeks. Pt will demonstrate R ankle MMT strength at least 5/5 in 3 weeks. Trimmer Loader Goals: Pt will demonstrate improved LEFI score by 9 points in 6 weeks for improved functional mobility. Pt will demonstrate ability to ambulate without the boot and min to no pain in 6 weeks for improved tolerance to work. Pt will demonstrate ability to negotiate stairs with min to no pain in 6 weeks for return to PLOF. Treatment Plan: Modalities to reduce pain, spasms and effusion. Manual therapy to restore motion and function. Therapeutic exercise to improve strength and flexibility. Neuromuscular re-education for posture and balance. Therapeutic activities to return to functional activities of daily living. Electronically signed by: Jeane Arevalo, PT, DPT, ATC Please sign and return to therapist. Thank you for your referral.
--- NOTE | 2022-11-14 14:22 | MHC.PT.DC ---
[facility] [place] [facility] [place] [facility] [place] Office [address] Silvia Noel [address] [phone] F: [phone] F: [phone] F: [phone] F: [phone] Physical Therapy Discharge Report Diagnosis: fx of distal end of R fibula Date of Surgery: n/a Date of Evaluation: 09/01/22 Date of Discharge: 11/14/22 Treatments to Date: 8 Cancellations to Date: 0 No Shows to Date: 0 Discharge Status: Improved Function Independent with HEP Discharge Summary: 11/14/2022: Pt was placed on 30 day hold which has and she has not reached out to be scheduled. Pt to be d/c at this time. Electronically signed by: Jeane Arevalo, PT, DPT, ATC Please sign and return to therapist. Thank you for your referral.
== END 2022-11-14 14:22 | disposition home or self-care (01) ==
LOC: HO.PTCHIC 13:00
PROVIDERS: PCP Internal Medicine; Visit Provider Physician Assistant
DX: S82.831A Other fracture of upper and lower end of right fibula, initial encounter for closed fracture (principal)
CPT/HCPCS: 97110; 97112; 97161; 97530

== ENCOUNTER → 2022-09-28 14:34 | Outpatient (BNVA) | payer BC, SELFPAY | PROVIDERS: PCP Internal Medicine; Referring Provider Internal Medicine; Visit Provider Internal Medicine | DX: I25.10 Atherosclerotic heart disease of native coronary artery without angina pectoris (principal); I10 Essential (primary) hypertension | CPT/HCPCS: 93005 ==

== ENCOUNTER 2023-01-11 14:48 | Outpatient (AMB) | payer BC, SELFPAY ==
[2023-01-11 14:50] VITALS: BP 138/74; PULSE 68; O2SAT 97; BMI 31.1
--- NOTE | 2023-01-11 14:50 | A.OFFPC_ITS ---
Vital Signs 01/11/23 14:50 Height 5 ft 6 in Weight 192 lb 8 oz BMI 31.1 BP 138/74 Blood Pressure Location Rt brachial Position Sitting Pulse 68 Pulse Source Pulse Oximeter Pulse Oximetry (%) 97 Oxygen Delivery Method Room Air Intake Visit Reasons: 3m follow up Allergies No Known Allergies Allergy (Verified 01/11/23 14:50) Medication List - Last Reconciled 01/11/23 by Duglas Nugent MD aspirin (Adult Aspirin Regimen) 81 mg PO DAILY atorvastatin 80 mg PO BEDTIME ezetimibe 10 mg PO DAILY lorazepam 0.5 mg PO DAILY PRN 30 days methylcellulose (laxative) (Citrucel) 500 mg PO TID metoprolol succinate ER 200 mg PO DAILY 90 days nifedipine ER 60 mg PO DAILY 90 days omeprazole 20 mg PO BID 90 days sertraline 100 mg PO DAILY 90 days Tobacco use date assessed: 01/11/23 Dental Screening Dental Screen Date: 01/11/23 Did you have a dental visit in the last 12 months?: Yes Did you have a dental problem in the last 6 months where you did not have access to dental care?: No Was dental information given to patient?: Patient has dentist HPI 3m follow up HPI Details Patient is a 57-year-old female this is regular 3 month follow-up visit Patient has stop smoking 2 years ago when she was diagnosed with corner artery disease She is complaining of paresthesia both hands right worse than left She has been wearing wrist splints at night for a while now. I have ordered EMG nerve conduction study in patient will be evaluated by the hand specialist. Anxiety disorder:? Patient is doing well with sertraline 100 mg and lorazepam 0.5 mg once a day.? Lorazepam script sent for next 3 month Patient is aware of side effects like , this medication has a risk of being habit forming, slowing of relfexes, dizziness, and its controlled in nature, will need 3 M visit Blood pressure is stable she is to continue metoprolol 200 mg daily, and Procar nitza 60 mg daily Dyspepsia treatment through Gastroenterology.? Patient has not had any heartburn since she has started taking omeprazole Lipid control through Cardiology Labs are needed today Follow-up 3 months [facility] Medical History Hyperlipidemia GERD (gastroesophageal reflux disease) On beta hina at home Anxiety Dysphagia Smoking Other and unspecified hyperlipidemia Essential hypertension Atherosclerotic cardiovascular disease Surgical History History of esophagogastroduodenoscopy (EGD) H/O heart artery stent History of colonoscopy Status post lumbar microdiscectomy Family History Father Crohn's disease Colon cancer, Onset Age: 70 Mother No problems noted. Maternal Grandmother Unknown family medical history Maternal Grandfather Unknown family medical history Paternal Grandmother Unknown family medical history Brother Substance use disorder Brother No problems noted. Sister No problems noted. Sister No problems noted. Sister No problems noted. Son No problems noted. Daughter No problems noted. Social History Household Members: Spouse Housing: House Alcohol intake: current Alcohol intake frequency: holidays/special occasions only Patient Tobacco Use Status: Former Tobacco user Quit Date: 05/14/20 Tobacco use type: Cigarette e-Cigarette/Vaping Use: Never Used service: No Current occupational status: employed Current occupation: [employer] Cognitive needs: No Hearing needs: No Vision needs: No Questionnaire PHQ-9 Over the last 2 weeks, how often have you been bothered by any of the following problems? 1. Little interest or pleasure in doing things: not at all 2. Feeling down, depressed, or hopeless: not at all 3. Trouble falling or staying asleep, or sleeping too much: several days 4. Feeling tired or having little energy: several days 5. Poor appetite or overeating: not at all 6. Feeling bad about yourself - or that you are a failure or have let yourself or your family down: not at all 7. Trouble concentrating on things, such as reading the newspaper or watching television: not at all 8. Moving or speaking so slowly that other people could have noticed. Or the opposite - being so fidgety or restless that you have been moving around a lot more than usual: not at all 9. Thoughts that you would be better off or of hurting yourself in some way: not at all Total score: 2 Depression Screening Interpretation: Negative Depression Screening Done: Yes 92772 - PHQ-9 Billing: Yes Source: Developed by Drs. Vijay Sutton, Nicole Frey, Oz Grove and colleagues, with an educational rich from [employer]. Thrive Questionnaire Date Thrive assessed: 01/11/23 I am a: Patient What is your living situation today?: I have a steady place to live Within the past 12 months, did the food you bought not last and you didn't have the money to get more?: Never true Do you have trouble paying for medicines?: No Do you have trouble getting transportation to medical appointments?: No Do you have trouble paying your heating and electricity bill?: No Do you have trouble taking care of your child, family member or friend?: No Do you have trouble with day-to-day activities such as bathing, preparing meals, shopping, managing finances, etc.?: No Are you currently unemployed and looking for a job?: No Are you interested in more education?: No AUDIT C Alcohol Use Questionnaire (AUDIT-C) 1. How often do you have a drink containing alcohol?: Monthly or less 2. How many drinks containing alcohol do you have on a typical day when you are drinking?: 1 or 2 3. How often do you have six or more drinks on one occasion?: Never Total Score: 1 Score Reviewed/Action Taken: Yes TANIA-7 AMB Questionnaire TANIA-7 Date TANIA - 7 assessed: 01/11/23 Feeling nervous, anxious, or on edge: 1 = Several days Not being able to stop or control worryin = More than half the days Worrying too much about different things: 2 = More than half the days Trouble relaxin = Not at all Being so restless that it is hard to sit still: 1 = Several days Becoming easily annoyed or irritable: 0 = Not at all Feeling afraid as if something awful might happen: 1 = Several days Total TANIA-7 score (0-4 normal; 5-9 mild; 10-14 moderate; 15-21 severe): 7 Source: Developed by Drs. Vijay Sutton, Oz Hernández and colleagues, with an educational rich from [employer]. TANIA-7 Assessment Billing TANIA-7 Assessment Tool: TANIA-7 Assessment 92254 Review of Systems Const Denies chills and Denies fever(s) ENT Denies epistaxis and Denies nasal discharge Card Denies chest pain Resp Denies chest congestion, Denies cough and Denies hemoptysis GI Denies diarrhea and Denies nausea Skin/Breast Denies rash Neuro Reports no additional complaints Psych Reports no additional complaints Endo Reports no additional complaints Physical exam (Primary Care) Vital Signs: Last Vital Signs Pulse 68 01/11/23 14:50 BP 138/74 01/11/23 14:50 Pulse Ox 97 01/11/23 14:50 Oxygen Delivery Method Room Air 01/11/23 14:50 BMI result Body Mass Index 31.1 Tobacco/Smoking Status: Tobacco use Status Tobacco use date assessed 01/11/23 01/11/23 14:53 Patient Tobacco Use Status Former Tobacco user 01/11/23 14:53 Tobacco use type Cigarette 01/11/23 14:53 e-Cigarette/Vaping Use Never Used 01/11/23 14:53 PHQ-9: PHQ-9 Score PHQ-9: Total score 2 01/11/23 15:18 Depression Screening Interpretation: Negative Thrive Assessment: Date of Thrive Assessment Date Thrive assessed 01/11/23 01/11/23 15:18 Const General: cooperative, comfortable and no acute distress Orientation/consciousness: patient oriented x3 HENMT Head: Yes normocephalic Eyes General: appearance normal, both eyes and all related structures Neck Neck: Yes supple Resp Effort & Inspection: normal respiratory effort, no cough and no stridor Cardio Rhythm: regular rhythm Heart sounds: S1 normal heart sound present and S2 normal heart sound present Skin General skin exam: turgor normal Neuro General: patient oriented x3, tone normal and moves all extremities Extrem Right lower extremity: no edema Left lower extremity: no edema Assessment and Plan Assessment & Plan (1) Essential hypertension: Code(s): I10 - Essential (primary) hypertension (2) Lipid disorder: Code(s): E78.9 - Disorder of lipoprotein metabolism, unspecified (3) Chronic GERD: Code(s): K21.9 - Gastro-esophageal reflux disease without esophagitis (4) Impaired fasting blood sugar: Code(s): R73.01 - Impaired fasting glucose (5) Paresthesia of both hands: Code(s): R20.2 - Paresthesia of skin (6) Anxiety, generalized: Code(s): F41.1 - Generalized anxiety disorder Plan Patient is a 57-year-old female this is regular 3 month follow-up visit Patient has stop smoking 2 years ago when she was diagnosed with corner artery disease She is complaining of paresthesia both hands right worse than left She has been wearing wrist splints at night for a while now. I have ordered EMG nerve conduction study in patient will be evaluated by the hand specialist. Anxiety disorder:? Patient is doing well with sertraline 100 mg and lorazepam 0.5 mg once a day.? Lorazepam script sent for next 3 month Patient is aware of side effects like , this medication has a risk of being habit forming, slowing of relfexes, dizziness, and its controlled in nature, will need 3 M visit Blood pressure is stable she is to continue metoprolol 200 mg daily, and Procardia 60 mg daily Dyspepsia treatment through Gastroenterology.? Patient has not had any heartburn since she has started taking omeprazole Lipid control through Cardiology Labs are needed today Follow-up 3 months Orders: Orders Complete Blood Count Auto Diff Today E78.9 - Disorder of lipoprotein metabolism, unspecified, F41.9 - Anxiety disorder, unspecified, I10 - Essential (primary) hypertension, K21.9 - Gastro-esophageal reflux disease without esophagitis, R73.01 - Impaired fasting glucose NE nerve conduction velocity Today R20.2 - Paresthesia of skin NE electromyogram (EMG) Today R20.2 - Paresthesia of skin Comprehensive Met. Panel Today E78.9 - Disorder of lipoprotein metabolism, unspecified, F41.9 - Anxiety disorder, unspecified, I10 - Essential (primary) hypertension, K21.9 - Gastro-esophageal reflux disease without esophagitis, R73.01 - Impaired fasting glucose Referrals Hand Surgery Referral R20.2 - Paresthesia of skin Medications: Refilled lorazepam 0.5 mg PO DAILY 30 days PRN 30 tabs 2RF anxiety F41.1 - Generalized anxiety disorder Coding Level of Care Code Est Pt Level 4 (94849) Diagnoses Essential hypertension I10 Lipid disorder E78.9 Chronic GERD K21.9 Impaired fasting blood sugar R73.01 Paresthesia of both hands R20.2 Anxiety, generalized F41.1 Additional Codes TANIA-7 Assessment Billing - TANIA-7 Assessment Tool: TANIA-7 Assessment 29903 ([id number])
== END 2023-01-11 15:58 | disposition home or self-care (01) ==
PROVIDERS: PCP Internal Medicine; Visit Provider Internal Medicine
DX: I10 Essential (primary) hypertension (principal); E78.9 Disorder of lipoprotein metabolism, unspecified; K21.9 Gastro-esophageal reflux disease without esophagitis; R73.01 Impaired fasting glucose; R20.2 Paresthesia of skin; F41.1 Generalized anxiety disorder
CPT/HCPCS: 99214

== ENCOUNTER 2023-01-11 15:09 | Outpatient (REF) | payer BC, SELFPAY ==
[2023-01-11 16:02] LABS: MANUAL DIFF FLAG NO
[2023-01-11 16:05] LABS: Basophils Percent Auto 0.5 % (0-2); Eosinophils Absolute Auto 0.2 X10*3/uL (0.0-0.4); Eosinophils Percent Auto 2.5 % (0-4); Hematocrit 37.1 % (37.0-47.0); Hemoglobin 12.4 g/dl (12.0-16.0); Imm Gran Abs Auto 0.02 X10*3/uL (0.00-0.03); Imm Gran Pct Auto 0.3 % (0.0-0.4); Lymphocytes Absolute Auto 1.9 X10*3/uL (1.2-4.9); Lymphocytes Percent Auto 30.2 % (20-40); Mean Corpuscular HGB Conc 33.4 g/dl (31.0-35.0); Mean Corpuscular Hemoglobin 30.5 pg (27.0-33.0); Mean Corpuscular Volume 91.4 fL (80.0-98.0); Mean Platelet Volume 9.6 fL (9.4-12.3); Monocytes Absolute Auto 0.4 X10*3/uL (0.1-1.2); Monocytes Percent Auto 6.1 % (2-11); Neutrophils Absolute Auto 3.8 x10*3/uL (2.0-8.3); Neutrophils Percent Auto 60.4 % (45-73); Platelet Count 213 X10*3/uL (160-400); Red Blood Count 4.06 X10*6/uL (4.20-5.50); Red Cell Distribution Width 12.6 % (11.0-16.0); White Blood Count 6.4 X10*3/uL (4.8-10.8)
[2023-01-11 16:51] LABS: Alanine Aminotransferase 18 U/L (0-31); Albumin Level 4.4 g/dL (3.5-5.0); Alkaline Phosphatase 64 U/L (39-117); Anion Gap 14 (12-20); Aspartate Amino Transferase 20 U/L (5-31); Bilirubin Total 0.6 mg/dL (0.0-1.0); Blood Urea Nitrogen 23 mg/dL (9-16); Calcium 9.4 mg/dL (8.4-10.2); Carbon Dioxide 22 mmol/L (22-29); Chloride 106 mmol/L (96-108); Estimated Glomerular Filt Rate 58; Glucose Random 81 mg/dL (60-115); Potassium 4.2 mmol/L (3.3-5.1); Sodium 138 mmol/L (135-145); Total Protein 7.1 g/dL (6.5-8.0)
== END 2023-01-11 15:10 | disposition home or self-care (01) ==
LOC: HO.HMGCLDS 15:09
PROVIDERS: PCP Internal Medicine; Visit Provider Internal Medicine
DX: I10 Essential (primary) hypertension (principal); E78.9 Disorder of lipoprotein metabolism, unspecified; K21.9 Gastro-esophageal reflux disease without esophagitis; R73.01 Impaired fasting glucose; F41.9 Anxiety disorder, unspecified
CPT/HCPCS: 36415; 80053; 85025

== ENCOUNTER 2023-02-01 14:16 | Outpatient (REF) | payer BC, SELFPAY ==
--- NOTE | 2023-02-01 14:19 | EMG_ITS ---
Chief complaint: Bilateral hand numbness Reason for referral: Evaluate for Carpal Tunnel Syndrome Referred by: Dr. Nugent Procedure done: Bilateral upper extremities NCS/EMG Precautions and/or limitations: None The limb temperature was monitored continuously and remained between 32-36 degrees C during the performance of the NCS. Nerve Conduction Studies Anti Sensory Summary Table ?Stim Site NR Onset (ms) Norm Onset (ms) Peak (ms) Norm Peak (ms) O-P Amp (?V) Norm O-P Amp Site1 Site2 Delta-0 (ms) Dist (cm) Rao (m/s) Norm Rao (m/s) Left Median Anti Sensory (2nd Digit) Wrist ? 3.3 4.3 <3.6 16.7 >10 Wrist 2nd Digit 3.3 14.0 42 Right Median Anti Sensory (2nd Digit) Wrist ? 3.5 4.0 <3.6 9.3 >10 Wrist 2nd Digit 3.5 14.0 40 Left Ulnar Anti Sensory (5th Digit) Wrist ? 2.8 3.3 <3.7 24.7 >15.0 Wrist 5th Digit 2.8 14.0 50 Right Ulnar Anti Sensory (5th Digit) Wrist ? 2.5 3.1 <3.7 25.1 >15.0 Wrist 5th Digit 2.5 14.0 56 Motor Summary Table ?Stim Site NR Onset (ms) Norm Onset (ms) O-P Amp (mV) Norm O-P Amp iAmp (mV) Amp (1st) (%) Site1 Site2 Delta-0 (ms) Dist (cm) Rao (m/s) Norm Rao (m/s) Left Median Motor (Abd Poll Brev) Wrist ? 4.6 <3.9 7.2 >4.5 9.6 100.0 Elbow Wrist 3.9 19.0 49 >45 Elbow ? 8.5 6.2 8.2 86.1 Right Median Motor (Abd Poll Brev) Wrist ? 3.8 <3.9 5.1 >4.5 5.8 100.0 Elbow Wrist 3.7 18.0 49 >45 Elbow ? 7.5 4.7 5.5 92.2 Left Ulnar Motor (Abd Dig Minimi) Wrist ? 2.6 <3.0 6.4 >5 7.5 100.0 B Elbow Wrist 2.9 18.0 62 >45 B Elbow ? 5.5 6.0 7.3 93.8 A Elbow B Elbow 1.3 10.0 77 >45 A Elbow ? 6.8 5.6 7.0 87.5 Right Ulnar Motor (Abd Dig Minimi) Wrist ? 2.8 <3.0 6.7 >5 7.8 100.0 B Elbow Wrist 3.0 17.0 57 >45 B Elbow ? 5.8 7.0 8.3 104.5 A Elbow B Elbow 1.3 10.0 77 >45 A Elbow ? 7.1 7.1 8.5 106.0 Comparison Summary Table ?Stim Site NR Peak (ms) Norm Peak (ms) P-T Amp (?V) Site1 Site2 Delta-P (ms) Norm Delta (ms) Right Median/Radial Dig I Comparison (Digit 1 - 10cm) Median ? 3.5 <2.9 4.0 Median Radial 0.3 Radial ? 3.8 <2.8 8.4 EMG ?Side Muscle Nerve Root Ins Act Fibs Psw Amp Dur Poly Recrt Int Pat Comment Right 1stDorInt Ulnar C8-T1 Nml Nml Nml Nml Nml 0 Nml Complete Right FlexCarRad Median C6-7 Nml Nml Nml Nml Nml 0 Nml Complete Right Biceps Musculocut C5-6 Nml Nml Nml Nml Nml 0 Nml Complete Right Triceps Radial C6-7-8 Nml Nml Nml Nml Nml 0 Nml Complete Right Deltoid Axillary C5-6 Nml Nml Nml Nml Nml 0 Nml Complete Left 1stDorInt Ulnar C8-T1 Nml Nml Nml Nml Nml 0 Nml Complete Left FlexCarRad Median C6-7 Nml Nml Nml Nml Nml 0 Nml Complete Left Biceps Musculocut C5-6 Nml Nml Nml Nml Nml 0 Nml Complete Left Triceps Radial C6-7-8 Nml Nml Nml Nml Nml 0 Nml Complete Left Deltoid Axillary C5-6 Nml Nml Nml Nml Nml 0 Nml Complete Paraspinal EMG ?Side Muscle Nerve Root Ins Act Fibs Psw Comment Right Cervical Upper Rami Nml Nml Nml Right Cervical Mid Rami Nml Nml Nml Right Cervical Lower Rami Nml Nml Nml Left Cervical Upper Rami Nml Nml Nml Left Cervical Mid Rami Nml Nml Nml Left Cervical Lower Rami Nml Nml Nml FINDINGS: Left median motor nerve showed prolonged distal latency, normal amplitude and norm conduction velocity. Bilateral median sensory nerve showed prolonged peak latency. All other nerves tested were within normal. Concentric needle EMG was performed in selected muscles of the bilateral upper extremities. Study delete did not reveal signs of electric abnormalities as shown in the table below. IMPRESSION: 1. This is an abnormal study. 2. There is electrodiagnostic evidence for left moderate-severe and right mild median neuropathy at the wrist, consistent with carpal tunnel syndrome. 3. There is no electrodiagnostic evidence for ulnar neuropathy, brachial plexopathy, or cervical radiculopathy. Thank you for your kind referral. Bere Calhoun MD, IVET Board Certified, [place] [employer] and Rehabilitation (ABPMR) Board Certified, [place] Board of Electrodiagnostic Medicine (ABEM) CODIN 30608 x 2 MTDD
== END 2023-02-01 14:17 | disposition home or self-care (01) ==
LOC: HO.NEURO 14:16
PROVIDERS: PCP Internal Medicine; Visit Provider Internal Medicine
DX: R20.2 Paresthesia of skin (principal)
CPT/HCPCS: 95886; 95911

== ENCOUNTER → 2023-02-01 14:19 | Outpatient (BNV) | payer BC, SELFPAY | PROVIDERS: PCP Internal Medicine; Visit Provider Physical Medicine & Rehabilitation | DX: G56.13 Other lesions of median nerve, bilateral upper limbs (principal); G56.03 Carpal tunnel syndrome, bilateral upper limbs | CPT/HCPCS: 95886; 95911 ==

== ENCOUNTER 2023-03-20 09:52 | Outpatient (AMB) | payer BC, SELFPAY ==
--- NOTE | 2023-03-20 11:18 | MHC.OFFWIV ---
Intake Vital Signs 03/20/23 11:24 Height 5 ft 6 in Weight 192 lb BMI 31.0 BP 120/72 Blood Pressure Location Rt brachial Position Sitting Pulse 70 Pulse Source Pulse Oximeter Temp 97.4 F Temp Source Temporal Artery Scan Pulse Oximetry (%) 96 Oxygen Delivery Method Room Air Intake Visit Reasons: EST/ear aches and headaches/ [id number] Intake Note: pt is here today for ear aches and headaches started Monday Patient Tobacco Use Status: Former Tobacco user Quit Date: 05/14/20 Allergies No Known Allergies Allergy (Verified 03/20/23 11:19) Do you need a note to return to daycare/school/sports/work: No HPI EST/ear aches and headaches/ [id number] HPI Details 57 year old female patient presents today with several day history of right ear pain, headache, and generalized fatigue. Reports her mother was recently Covid +. Denies any cough or congestion. Denies any GI symptoms. Denies fever/chills. FOR[facility]LY [facility] Medical History Hyperlipidemia GERD (gastroesophageal reflux disease) On beta hina at home Anxiety Dysphagia Smoking Other and unspecified hyperlipidemia Essential hypertension Atherosclerotic cardiovascular disease Surgical History History of esophagogastroduodenoscopy (EGD) H/O heart artery stent History of colonoscopy Status post lumbar microdiscectomy Family History Father Crohn's disease Colon cancer, Onset Age: 70 Mother No problems noted. Maternal Grandmother Unknown family medical history Maternal Grandfather Unknown family medical history Paternal Grandmother Unknown family medical history Brother Substance use disorder Brother No problems noted. Sister No problems noted. Sister No problems noted. Sister No problems noted. Son No problems noted. Daughter No problems noted. Social History Household Members: Spouse Housing: House Alcohol intake: current Alcohol intake frequency: holidays/special occasions only Patient Tobacco Use Status: Former Tobacco user Quit Date: 05/14/20 Tobacco use type: Cigarette e-Cigarette/Vaping Use: Never Used service: No Current occupational status: employed Current occupation: [employer] Cognitive needs: No Hearing needs: No Vision needs: No Review of Systems Const All systems reviewed & are unremarkable except as noted in HPI and below Physical Exam Vital Signs: Last Vital Signs Temp 97.4 F 03/20/23 11:24 Pulse 70 03/20/23 11:24 BP 120/72 03/20/23 11:24 Pulse Ox 96 03/20/23 11:24 Oxygen Delivery Method Room Air 03/20/23 11:24 BMI result Body Mass Index 31.0 Const General: cooperative, healthy appearing, comfortable and no acute distress HEENT Head: Yes normal to inspection Ears: hearing grossly normal bilaterally, external ears normal, TM normal on the left and TM abnormal (right TM erythematous, purulent effusion) General nose exam: Normal external nose present and Normal nasal mucous membranes and turbinates present Face and sinus: Yes normal facial exam Mouth: Normal oral and palatal mucosa present and moist mucous membranes Throat: Yes posterior oropharynx normal Neck Neck: Yes no lymphadenopathy Resp Effort & Inspection: normal respiratory effort and able to speak in complete sentences Auscultation: clear to auscultation bilaterally Cardio Jugular venous distension: no JVD Palpation: normal PMI Rate: regular rate Rhythm: regular rhythm Skin General skin exam: no rashes or lesions noted Extrem General: Yes capillary refill normal and Yes no clubbing, cyanosis or edema Psych Appearance: grossly normal Mental Status: mental status grossly normal Speech and movement: Normal speech and movement present Assessment & Plan Assessment & Plan (1) Upper respiratory infection: Code(s): J06.9 - Acute upper respiratory infection, unspecified Qualifiers: URI type: unspecified viral URI Qualified Code(s): J06.9 - Acute upper respiratory infection, unspecified Plan: Likely viral URI as patient had close exposure to Covid + mother. Viral swab obtained. Will also start patient on augmentin for right OM. Reviewed indications, use, possible s/e. Can continue to take tylenol/motrin as needed for any fever/pain. Patient advised to return to the clinic if she does not improve with time and treatment, or if any new symptoms develop. She verbalizes understanding and agrees to plan. (2) Right otitis media: Code(s): H66.91 - Otitis media, unspecified, right ear Qualifiers: Otitis media type: suppurative Chronicity: acute Plan: Abx as above. Orders: Orders SARS-CoV2/FLU/RSV Today J06.9 - Acute upper respiratory infection, unspecified Medications: New amoxicillin-pot clavulanate 875-125 mg 1 tab PO BID 7 days 14 tabs 0RF H66.91 - Otitis media, unspecified, right ear, J06.9 - Acute upper respiratory infection, unspecified Coding Level of Care Code Est Pt Level 3 (95434) Diagnoses Viral upper respiratory tract infection J06.9 URI type: unspecified viral URI Right otitis media H66.91 Otitis media type: suppurative Chronicity: acute
[2023-03-20 11:24] VITALS: BP 120/72; PULSE 70; TEMP 36.3; O2SAT 96; BMI 31.0
== END 2023-03-20 11:55 | disposition home or self-care (01) ==
PROVIDERS: PCP Internal Medicine; Visit Provider Nurse Practitioner Family
DX: J06.9 Acute upper respiratory infection, unspecified (principal); H66.91 Otitis media, unspecified, right ear
CPT/HCPCS: 99213

== ENCOUNTER 2023-03-20 11:34 | Outpatient (REF) | payer BC, SELFPAY ==
[2023-03-20 14:49] LABS: Influenza A PCR NEGATIVE (Negative); Influenza B PCR NEGATIVE (Negative); Resp Syncy Virus RNA Qual PCR POSITIVE (Negative); SARS COV2 PCR INHOUSE NEGATIVE (Negative)
== END 2023-03-20 11:35 | disposition home or self-care (01) ==
LOC: HO.LAB 11:34
PROVIDERS: Visit Provider Nurse Practitioner Family
DX: Z11.52 Encounter for screening for COVID-19 (principal); J06.9 Acute upper respiratory infection, unspecified
CPT/HCPCS: 0241U

== ENCOUNTER 2023-04-12 | Outpatient (REF) | payer BC, SELFPAY | END 2023-04-12 00:01 | disposition home or self-care (01) | LOC: HO.HMGCLNP | PROVIDERS: Visit Provider Internal Medicine | DX: Z13.89 Encounter for screening for other disorder (principal) ==

== ENCOUNTER 2023-04-12 14:46 | Outpatient (AMB) | payer BC, SELFPAY ==
[2023-04-12 14:47] VITALS: BP 124/76; PULSE 64; O2SAT 97
--- NOTE | 2023-04-12 14:47 | MHC.PC.OV ---
Vital Signs 04/12/23 14:47 Height 5 ft 6 in BMI Reason not done Patient refused/unable BP 124/76 Blood Pressure Location Rt brachial Position Sitting Pulse 64 Pulse Source Pulse Oximeter Pulse Oximetry (%) 97 Oxygen Delivery Method Room Air Intake Visit Reasons: PE Allergies No Known Allergies Allergy (Verified 04/12/23 14:47) Medication List - Last Reconciled 04/12/23 by Duglas Nugent MD aspirin (Adult Aspirin Regimen) 81 mg PO DAILY atorvastatin 80 mg PO BEDTIME ezetimibe 10 mg PO DAILY methylcellulose (laxative) (Citrucel) 500 mg PO TID metoprolol succinate ER 200 mg PO DAILY 90 days nifedipine ER 60 mg PO DAILY 90 days omeprazole 20 mg PO BID 90 days sertraline 100 mg PO DAILY 90 days Tobacco use date assessed: 04/12/23 Dental Screening Dental Screen Date: 04/12/23 Did you have a dental visit in the last 12 months?: Yes Did you have a dental problem in the last 6 months where you did not have access to dental care?: No Was dental information given to patient?: Patient has dentist HPI PE HPI Details Physical exam Patient is a 48-year-old female Due for mammogram Colonoscopy was early last year next 1 will be in 10 years Due for OBGYN appointment Labs will be before next visit early July Lorazepam refill sent for next 3 months Patient says that she had difficulty urinating last week and she would like to have a urine test done. There is no signs of infection but there is small amount of protein in the urine, patient was encouraged to drink more water we will repeat urine again with next set of labs in July Medication list reviewed Patient declined breast exam today [facility] Medical History Hyperlipidemia GERD (gastroesophageal reflux disease) On beta hina at home Anxiety Dysphagia Smoking Other and unspecified hyperlipidemia Essential hypertension Atherosclerotic cardiovascular disease Surgical History History of esophagogastroduodenoscopy (EGD) H/O heart artery stent History of colonoscopy Status post lumbar microdiscectomy Family History Father Crohn's disease Colon cancer, Onset Age: 70 Mother No problems noted. Maternal Grandmother Unknown family medical history Maternal Grandfather Unknown family medical history Paternal Grandmother Unknown family medical history Brother Substance use disorder Brother No problems noted. Sister No problems noted. Sister No problems noted. Sister No problems noted. Son No problems noted. Daughter No problems noted. 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 1. Little interest or pleasure in doing things: not at all 2. Feeling down, depressed, or hopeless: not at all 3. Trouble falling or staying asleep, or sleeping too much: several days 4. Feeling tired or having little energy: several days 5. Poor appetite or overeating: several days 6. Feeling bad about yourself - or that you are a failure or have let yourself or your family down: not at all 7. Trouble concentrating on things, such as reading the newspaper or watching television: not at all 8. Moving or speaking so slowly that other people could have noticed. Or the opposite - being so fidgety or restless that you have been moving around a lot more than usual: not at all 9. Thoughts that you would be better off or of hurting yourself in some way: not at all Total score: 3 Depression Screening Interpretation: Negative Depression Screening Done: Yes 86225 - PHQ-9 Billing: Yes Source: Developed by Drs. Vijay Sutton, Nicole Frey, Oz Grove and colleagues, with an educational rich from [employer]. Thrive Questionnaire Date Thrive assessed: 04/12/23 I am a: Patient What is your living situation today?: I have a steady place to live Within the past 12 months, did the food you bought not last and you didn't have the money to get more?: Never true Within the past 12 months, did you worry whether your food would run out before you got money to buy more?: Never true Do you have trouble paying for medicines?: No Do you have trouble getting transportation to medical appointments?: No Do you have trouble paying your heating and electricity bill?: No Do you have trouble taking care of your child, family member or friend?: No Do you have trouble with day-to-day activities such as bathing, preparing meals, shopping, managing finances, etc.?: No Are you currently unemployed and looking for a job?: No Are you interested in more education?: No Please select the resources that you would like help with: None Currently or been in a relationship where the following occur: no concerns reported AUDIT C Alcohol Use Questionnaire (AUDIT-C) 1. How often do you have a drink containing alcohol?: 2-4 times a month 2. How many drinks containing alcohol do you have on a typical day when you are drinking?: 1 or 2 3. How often do you have six or more drinks on one occasion?: Never Total Score: 2 Score Reviewed/Action Taken: Yes TANIA-7 AMB Questionnaire TANIA-7 Date TANIA - 7 assessed: 04/12/23 Feeling nervous, anxious, or on edge: 1 = Several days Not being able to stop or control worryin = More than half the days Worrying too much about different things: 2 = More than half the days Trouble relaxin = More than half the days Being so restless that it is hard to sit still: 2 = More than half the days Becoming easily annoyed or irritable: 2 = More than half the days Feeling afraid as if something awful might happen: 2 = More than half the days Total TANIA-7 score (0-4 normal; 5-9 mild; 10-14 moderate; 15-21 severe): 13 Source: Developed by Drs. Vijay Sutton, Nicole Frey, [place] and colleagues, with an educational rich from [employer]. TANIA-7 Assessment Billing TANIA-7 Assessment Tool: TANIA-7 Assessment 79399 Review of Systems Const Denies chills, Denies fever(s) and Denies headache(s) Eyes Denies blurry vision ENT Denies headache(s), Denies nasal discharge, Denies nasal obstruction, Denies odynophagia and Denies sinus pain Card Denies chest pain at rest and Denies chest pain with activity Resp Denies cough and Denies hemoptysis GI Denies diarrhea, Denies odynophagia, Denies vomiting and Denies hematemesis Reports as per HPI Musc Denies abnormal gait Skin/Breast Reports as per HPI Neuro Denies Neuro-related abnormal movements, Denies Abnormal speech present, Denies abnormal gait, Denies headache(s) and Denies Sensory deficit (Neuro) Psych Denies mood swings and Denies paranoia Endo Reports as per HPI Bong/Lymph Reports as per HPI Aller/Immun Reports as per HPI Physical exam (Primary Care) Vital Signs: Last Vital Signs Pulse 64 04/12/23 14:47 BP 124/76 04/12/23 14:47 Pulse Ox 97 04/12/23 14:47 Oxygen Delivery Method Room Air 04/12/23 14:47 Tobacco/Smoking Status: Tobacco use Status Tobacco use date assessed 04/12/23 04/12/23 14:49 Patient Tobacco Use Status Former Tobacco user 04/12/23 14:49 Tobacco use type Cigarette 04/12/23 14:49 e-Cigarette/Vaping Use Never Used 04/12/23 14:49 PHQ-9: PHQ-9 Score PHQ-9: Total score 3 04/12/23 15:27 Depression Screening Interpretation: Negative Thrive Assessment: Date of Thrive Assessment Date Thrive assessed 04/12/23 04/12/23 15:27 Currently or been in a relationship where the following occur: no concerns reported Const General: cooperative, comfortable and no acute distress Orientation/consciousness: patient oriented x3 HENMT Head: Yes normocephalic and Yes atraumatic Eyes General: appearance normal, both eyes and all related structures Pupils: Equal, round and reactive pupils present EOM: EOMs intact bilaterally Neck Neck: Yes supple and No lymphadenopathy Thyroid: Thyroid normal Lymphatic: no lymphadenopathy noted Resp Effort & Inspection: normal respiratory effort and able to speak in complete sentences Auscultation: clear to auscultation bilaterally Cardio Heart sounds: S1 normal heart sound present and S2 normal heart sound present GI Palpation (GI): Soft to palpation and nontender Auscultation: normal bowel sounds General: Yes no CVA tenderness Back/Spine/Pelvis Back: no CVA tenderness Skin General skin exam: elasticity normal and turgor normal Neuro General: patient oriented x3 and gait normal Cranial nerves: Yes Equal, round and reactive pupils present Speech: No Abnormal speech present Sensory Exam: No Sensory deficit (Neuro) Coordination: tandem gait normal and Romberg test negative Extrem General: Yes normal exam except as noted and No edema Results AMB Urinalysis, Automated UA Leukoctes 0 Lisseth/uL Last Edit by Myesha Cardoza CMA on 04/12/23 15:21 UA Nitrite Negative Last Edit by Myesha Cardoza, RAUDEL on 04/12/23 15:21 UA Urobilinogen 0.2 mg/dL Last Edit by Myesha Cardoza, RAUDEL on 04/12/23 15:21 UA Protein 15 mg/dL Last Edit by Myesha Cardoza, RAUDEL on 04/12/23 15:21 UA pH 6.0 Last Edit by Myesha Cardoza, RAUDEL on 04/12/23 15:21 UA Blood 0 Gareth/uL Last Edit by Myesha Cardoza, RAUDEL on 04/12/23 15:21 UA Specific [place] 1.030 Last Edit by Myesha Cardoza, RAUDEL on 04/12/23 15:21 UA Ketone Negative Last Edit by Myesha Cardoza, RAUDEL on 04/12/23 15:21 UA Bilirubin 1 mg/dL Last Edit by Myesha Cardoza, RAUDEL on 04/12/23 15:21 UA Glucose 0 mg/dL Last Edit by Myesha Cardoza, RAUDEL on 04/12/23 15:21 Results Reviewed Results Reviewed: Laboratory Last Values Urine pH (Auto) 6.0 04/12/23 15:19 Specific [place] (Auto) 1.030 04/12/23 15:19 Urine Protein (Auto) 15 mg/dL 04/12/23 15:19 Glucose (UA)(Auto) 0 mg/dL 04/12/23 15:19 Urine Ketones (Auto) Negative 04/12/23 15:19 Urine Blood (Auto) 0 Gareth/uL 04/12/23 15:19 Urine Nitrite (Auto) Negative 04/12/23 15:19 Urine Bilirubin (Auto) 1 mg/dL 04/12/23 15:19 Urine Urobilinogen (Auto) 0.2 mg/dL 04/12/23 15:19 Leukocyte Esterase (Auto) 0 Lisseth/uL 04/12/23 15:19 Assessment and Plan Assessment & Plan (1) Encounter for general adult medical examination with abnormal findings: Code(s): Z00.01 - Encounter for general adult medical examination with abnormal findings (2) Hypertension, essential: Code(s): I10 - Essential (primary) hypertension (3) Anxiety, generalized: Code(s): F41.1 - Generalized anxiety disorder (4) Lipid disorder: Code(s): E78.9 - Disorder of lipoprotein metabolism, unspecified (5) Chronic GERD: Code(s): K21.9 - Gastro-esophageal reflux disease without esophagitis (6) Atherosclerotic cardiovascular disease: Code(s): I25.10 - Atherosclerotic heart disease of [place] coronary artery without angina pectoris (7) Protein, urine, abnormal presence: Code(s): R80.9 - Proteinuria, unspecified Qualifiers: Proteinuria type: other Qualified Code(s): R80.8 - Other proteinuria Plan Physical exam Patient is a 48-year-old female Due for mammogram Colonoscopy was early last year next 1 will be in 10 years Due for OBGYN appointment Labs will be before next visit early July Lorazepam refill sent for next 3 months Patient says that she had difficulty urinating last week and she would like to have a urine test done. There is no signs of infection but there is small amount of protein in the urine, patient was encouraged to drink more water we will repeat urine again with next set of labs in July Medication list reviewed Patient declined breast exam today Orders: Orders MM tomosynthesis screening BI Today Z12.31 - Encounter for screening mammogram for malignant neoplasm of breast Lipid Panel Today E78.9 - Disorder of lipoprotein metabolism, unspecified, F41.1 - Generalized anxiety disorder, I10 - Essential (primary) hypertension, I25.10 - Atherosclerotic heart disease of [place] coronary artery without angina pectoris, K21.9 - Gastro-esophageal reflux disease without esophagitis, Z00.01 - Encounter for general adult medical examination with abnormal findings UA CC w/rflx Micro + Cult Today R80.9 - Proteinuria, unspecified AMB Urinalysis Automated Today Z13.9 - Encounter for screening, unspecified Complete Blood Count Auto Diff Today E78.9 - Disorder of lipoprotein metabolism, unspecified, F41.1 - Generalized anxiety disorder, I10 - Essential (primary) hypertension, I25.10 - Atherosclerotic heart disease of [place] coronary artery without angina pectoris, K21.9 - Gastro-esophageal reflux disease without esophagitis, Z00.01 - Encounter for general adult medical examination with abnormal findings Comprehensive [place]. Panel Fast Today E78.9 - Disorder of lipoprotein metabolism, unspecified, F41.1 - Generalized anxiety disorder, I10 - Essential (primary) hypertension, I25.10 - Atherosclerotic heart disease of [place] coronary artery without angina pectoris, K21.9 - Gastro-esophageal reflux disease without esophagitis, Z00.01 - Encounter for general adult medical examination with abnormal findings Referrals [employer] Referral Z01.419 - Encounter for gynecological examination (general) (routine) without abnormal findings Medications: Refilled lorazepam 0.5 mg PO DAILY PRN 30 tabs 2RF anxiety 30 days F41.1 - Generalized anxiety disorder Coding Level of Care Code Est Pt Prev Care 40-64y(81049) Diagnoses Encounter for general adult medical examination with abnormal findings Z00.01 Hypertension, essential I10 Anxiety, generalized F41.1 Lipid disorder E78.9 Chronic GERD K21.9 Atherosclerotic cardiovascular disease I25.10 Other proteinuria R80.8 Proteinuria type: other Additional Codes TANIA-7 Assessment Billing - TANIA-7 Assessment Tool: TANIA-7 Assessment 91753 ([id number])
== END 2023-04-12 15:49 | disposition home or self-care (01) ==
PROVIDERS: PCP Internal Medicine; Visit Provider Internal Medicine
DX: Z00.01 Encounter for general adult medical examination with abnormal findings (principal); I10 Essential (primary) hypertension; F41.1 Generalized anxiety disorder; E78.9 Disorder of lipoprotein metabolism, unspecified; R80.8 Other proteinuria; K21.9 Gastro-esophageal reflux disease without esophagitis; I25.10 Atherosclerotic heart disease of native coronary artery without angina pectoris
CPT/HCPCS: 81003; 99396

== ENCOUNTER 2023-04-14 12:56 | Outpatient (REF) | payer BC, SELFPAY | END 2023-04-14 12:57 | disposition home or self-care (01) | LOC: HO.HMGCLDS 12:56 | PROVIDERS: PCP Internal Medicine; Visit Provider Internal Medicine | DX: R80.9 Proteinuria, unspecified (principal) | CPT/HCPCS: 81001; 81003 ==

== ENCOUNTER 2023-05-16 14:34 | Outpatient (REF) | payer BC, SELFPAY | END 2023-05-16 14:35 | disposition home or self-care (01) | LOC: HO.MAMMO 14:34 | PROVIDERS: PCP Internal Medicine; Visit Provider Internal Medicine | DX: Z12.31 Encounter for screening mammogram for malignant neoplasm of breast (principal) | CPT/HCPCS: 77063; 77067 ==

== ENCOUNTER → 2023-05-16 14:45 | Outpatient (BNV) | payer BC, SELFPAY | PROVIDERS: PCP Internal Medicine; Visit Provider Radiology Diagnostic Radiology | DX: Z12.31 Encounter for screening mammogram for malignant neoplasm of breast (principal) | CPT/HCPCS: 77063; 77067 ==

== ENCOUNTER 2023-07-07 07:52 | Outpatient (REF) | payer BC, SELFPAY ==
[2023-07-07 10:26] LABS: MANUAL DIFF FLAG NO
[2023-07-07 10:53] LABS: Basophils Percent Auto 0.4 % (0-2); Eosinophils Absolute Auto 0.1 X10*3/uL (0.0-0.4); Eosinophils Percent Auto 2.4 % (0-4); Hematocrit 38.7 % (37.0-47.0); Imm Gran Abs Auto 0.02 X10*3/uL (0.00-0.03); Imm Gran Pct Auto 0.4 % (0.0-0.4); Lymphocytes Absolute Auto 1.3 X10*3/uL (1.2-4.9); Lymphocytes Percent Auto 28.9 % (20-40); Mean Corpuscular HGB Conc 33.6 g/dl (31.0-35.0); Mean Corpuscular Hemoglobin 30.8 pg (27.0-33.0); Mean Corpuscular Volume 91.7 fL (80.0-98.0); Mean Platelet Volume 9.4 fL (9.4-12.3); Monocytes Absolute Auto 0.3 X10*3/uL (0.1-1.2); Neutrophils Absolute Auto 2.8 x10*3/uL (2.0-8.3); Neutrophils Percent Auto 61.9 % (45-73); Platelet Count 150 X10*3/uL (160-400); Red Blood Count 4.22 X10*6/uL (4.20-5.50); Red Cell Distribution Width 13.5 % (11.0-16.0); White Blood Count 4.5 X10*3/uL (4.8-10.8)
[2023-07-07 11:10] LABS: Alanine Aminotransferase 23 U/L (0-31); Albumin Level 4.4 g/dL (3.5-5.0); Alkaline Phosphatase 63 U/L (39-117); Anion Gap 13 (12-20); Aspartate Amino Transferase 22 U/L (5-31); Bilirubin Total 0.6 mg/dL (0.0-1.0); Blood Urea Nitrogen 18 mg/dL (9-16); Carbon Dioxide 25 mmol/L (22-29); Chloride 104 mmol/L (96-108); Cholesterol 174 mg/dL (<200); Estimated Glomerular Filt Rate > 60; Glucose Fasting 92 mg/dL (60-99); HDL Cholesterol 75 mg/dL (>40); LDL Cholesterol Calculated 87 mg/dL (<100); Potassium 4.1 mmol/L (3.3-5.1); Sodium 138 mmol/L (135-145); Total Protein 7.2 g/dL (6.5-8.0); Triglycerides 64 mg/dL (<150)
== END 2023-07-07 07:53 | disposition home or self-care (01) ==
LOC: HO.HMGCLDS 07:52
PROVIDERS: PCP Internal Medicine; Visit Provider Internal Medicine
DX: Z00.01 Encounter for general adult medical examination with abnormal findings (principal); I10 Essential (primary) hypertension; F41.1 Generalized anxiety disorder; E78.9 Disorder of lipoprotein metabolism, unspecified; K21.9 Gastro-esophageal reflux disease without esophagitis; I25.10 Atherosclerotic heart disease of native coronary artery without angina pectoris
CPT/HCPCS: 36415; 80053; 80061; 85025

== ENCOUNTER 2023-07-12 14:50 | Outpatient (AMB) | payer BC, SELFPAY ==
[2023-07-12 14:55] VITALS: BP 138/82; PULSE 68; O2SAT 97; BMI 30.5
--- NOTE | 2023-07-12 14:55 | A.OFFPC_ITS ---
Vital Signs 3 07/12/23 14:55 Height 5 ft 6 in Weight 189 lb 2 oz BMI 30.5 BP 138/82 Blood Pressure Location Lt brachial Position Sitting Pulse 68 Pulse Source Pulse Oximeter Pulse Oximetry (%) 97 Oxygen Delivery Method Room Air Intake Visit Reasons: 9 month follow up Allergies No Known Allergies Allergy (Verified 07/12/23 14:57) Medication List - Last Reconciled 07/12/23 by Duglas Nugent MD aspirin (Adult Aspirin Regimen) 81 mg PO DAILY atorvastatin 80 mg PO BEDTIME ezetimibe 10 mg PO DAILY lorazepam 0.5 mg PO DAILY PRN 30 days methylcellulose (laxative) (Citrucel) 500 mg PO TID metoprolol succinate ER 200 mg PO DAILY 90 days nifedipine ER 60 mg PO DAILY 90 days omeprazole 20 mg PO BID 90 days sertraline 100 mg PO DAILY 90 days Tobacco use date assessed: 07/12/23 Dental Screening Dental Screen Date: 07/12/23 Did you have a dental visit in the last 12 months?: Yes Did you have a dental problem in the last 6 months where you did not have access to dental care?: No Was dental information given to patient?: Patient has dentist HPI 9 month follow up 2 HPI0 Details Patient is a 58-year-old female this is regular 3 month follow-up visit Patient is complaining of thick discolored right toenail, which is difficult to cut She is requesting treatment, we have provided her with sterile cup she will take the clipping of nail to lab so we can see if it is secondary to fungus Patient has stop smoking in 2021, when she was diagnosed with corner artery disease Anxiety disorder:? Patient is doing well with sertraline 100 mg and lorazepam 0.5 mg once a day.? Lorazepam script sent for next 3 month Patient is aware of side effects like , this medication has a risk of being habit forming, slowing of relfexes, dizziness, and its controlled in nature, will need 3 M visit Blood pressure is stable she is to continue metoprolol 200 mg daily, and Procardia 60 mg daily Dyspepsia treatment through Gastroenterology.? Patient has not had any heartburn since she has started taking omeprazole Lipid control through Cardiology Impaired fasting sugar, stable BMI is elevated patient is trying to lose weight Follow-up 3 months [facility] Medical History Hyperlipidemia GERD (gastroesophageal reflux disease) On beta hina at home Anxiety Dysphagia Smoking Other and unspecified hyperlipidemia Essential hypertension Atherosclerotic cardiovascular disease Surgical History History of esophagogastroduodenoscopy (EGD) H/O heart artery stent History of colonoscopy Status post lumbar microdiscectomy Family History Father Crohn's disease Colon cancer, Onset Age: 70 Mother No problems noted. Maternal Grandmother Unknown family medical history Maternal Grandfather Unknown family medical history Paternal Grandmother Unknown family medical history Brother Substance use disorder Brother No problems noted. Sister No problems noted. Sister No problems noted. Sister No problems noted. Son No problems noted. Daughter No problems noted. Social History Household Members: Spouse Housing: House Alcohol intake: current Alcohol intake frequency: holidays/special occasions only Patient Tobacco Use Status: Former Tobacco user Quit Date: 05/14/20 Tobacco use type: Cigarette e-Cigarette/Vaping Use: Never Used service: No Current occupational status: employed Current occupation: [employer] Cognitive needs: No Hearing needs: No Vision needs: No Questionnaire PHQ-9 Over the last 2 weeks, how often have you been bothered by any of the following problems? 1. Little interest or pleasure in doing things: several days 2. Feeling down, depressed, or hopeless: several days 3. Trouble falling or staying asleep, or sleeping too much: more than half the days 4. Feeling tired or having little energy: more than half the days 5. Poor appetite or overeating: several days 6. Feeling bad about yourself - or that you are a failure or have let yourself or your family down: several days 7. Trouble concentrating on things, such as reading the newspaper or watching television: not at all 8. Moving or speaking so slowly that other people could have noticed. Or the opposite - being so fidgety or restless that you have been moving around a lot more than usual: not at all 9. Thoughts that you would be better off or of hurting yourself in some way: not at all Total score: 8 Depression Screening Interpretation: Negative Depression Screening Done: Yes 35178 - PHQ-9 Billing: Yes Source: Developed by Drs. Vijay Sutton, Niocle Frey, Oz Grove and colleagues, with an educational rich from [employer]. Thrive Questionnaire Date Thrive assessed: 07/12/23 I am a: Parent/Caregiver What is your living situation today?: I have a steady place to live Within the past 12 months, did the food you bought not last and you didn't have the money to get more?: Never true Within the past 12 months, did you worry whether your food would run out before you got money to buy more?: Never true Do you have trouble paying for medicines?: No Do you have trouble getting transportation to medical appointments?: No Do you have trouble paying your heating and electricity bill?: No Do you have trouble taking care of your child, family member or friend?: No Do you have trouble with day-to-day activities such as bathing, preparing meals, shopping, managing finances, etc.?: No Are you currently unemployed and looking for a job?: No Are you interested in more education?: No Please select the resources that you would like help with: None Currently or been in a relationship where the following occur: no concerns reported THRIVE Score: 0 AUDIT C Alcohol Use Questionnaire (AUDIT-C) 1. How often do you have a drink containing alcohol?: 2-4 times a month 2. How many drinks containing alcohol do you have on a typical day when you are drinking?: 1 or 2 3. How often do you have six or more drinks on one occasion?: Never Total Score: 2 Score Reviewed/Action Taken: Yes TANIA-7 AMB Questionnaire TANIA-7 Date TANIA - 7 assessed: 07/12/23 Feeling nervous, anxious, or on edge: 1 = Several days Not being able to stop or control worryin = Several days Worrying too much about different things: 1 = Several days Trouble relaxin = Several days Being so restless that it is hard to sit still: 1 = Several days Becoming easily annoyed or irritable: 1 = Several days Feeling afraid as if something awful might happen: 1 = Several days Total TANIA-7 score (0-4 normal; 5-9 mild; 10-14 moderate; 15-21 severe): 7 Source: Developed by Drs. Vijay Sutton, Nicole Frey, Oz Grove and colleagues, with an educational rich from [employer]. TANIA-7 Assessment Billing TANIA-7 Assessment Tool: TANIA-7 Assessment 60357 Review of Systems Const Denies chills and Denies fever(s) ENT Denies epistaxis and Denies nasal discharge Card Denies chest pain Resp Denies chest congestion, Denies cough and Denies hemoptysis GI Denies diarrhea and Denies nausea Skin/Breast Denies rash Neuro Reports no additional complaints Psych Reports no additional complaints Endo Reports no additional complaints Physical exam (Primary Care) Vital Signs: Last Vital Signs Pulse 68 07/12/23 14:55 BP 138/82 07/12/23 14:55 Pulse Ox 97 07/12/23 14:55 Oxygen Delivery Method Room Air 07/12/23 14:55 BMI result Body Mass Index 30.5 Tobacco/Smoking Status: Tobacco use Status Tobacco use date assessed 07/12/23 07/12/23 14:59 Patient Tobacco Use Status Former Tobacco user 07/12/23 14:59 Tobacco use type Cigarette 07/12/23 14:59 e-Cigarette/Vaping Use Never Used 07/12/23 14:59 PHQ-9: PHQ-9 Score PHQ-9: Total score 8 07/12/23 15:12 Depression Screening Interpretation: Negative Thrive Assessment: Date of Thrive Assessment Date Thrive assessed 07/12/23 07/12/23 14:59 Currently or been in a relationship where the following occur: no concerns reported Const General: cooperative, comfortable and no acute distress Orientation/consciousness: patient oriented x3 HENIL Head: Yes normocephalic Eyes General: appearance normal, both eyes and all related structures Neck Neck: Yes supple Resp Effort & Inspection: normal respiratory effort, no cough and no stridor Cardio Rhythm: regular rhythm Heart sounds: S1 normal heart sound present and S2 normal heart sound present Skin General skin exam: turgor normal Neuro General: patient oriented x3, tone normal and moves all extremities Extrem Right lower extremity: no edema Left lower extremity: no edema Ankle/foot/toe images: 2 1. Toenail discolored and thick Assessment and Plan Assessment & Plan (1) Toenail deformity: Code(s): L60.8 - Other nail disorders (2) Hypertension, essential: Code(s): I10 - Essential (primary) hypertension (3) Anxiety, generalized: Code(s): F41.1 - Generalized anxiety disorder (4) Lipid disorder: Code(s): E78.9 - Disorder of lipoprotein metabolism, unspecified (5) Chronic GERD: Code(s): K21.9 - Gastro-esophageal reflux disease without esophagitis (6) Atherosclerotic cardiovascular disease: Code(s): I25.10 - Atherosclerotic heart disease of [place] coronary artery without angina pectoris (7) Impaired fasting blood sugar: Code(s): R73.01 - Impaired fasting glucose (8) Obesity due to excess calories: Code(s): E66.09 - Other obesity due to excess calories Qualifiers: Body mass index: BMI 30.0-30.9 Obesity classification: adult class 1 (BMI 30 - 34.9) Serious obesity comorbidity presence: with serious comorbidity Qualified Code(s): E66.09 - Other obesity due to excess calories; Z68.30 - Body mass index [BMI] 30.0-30.9, adult Plan Patient is a 58-year-old female this is regular 3 month follow-up visit Patient is complaining of thick discolored right toenail, which is difficult to cut She is requesting treatment, we have provided her with sterile cup she will take the clipping of nail to lab so we can see if it is secondary to fungus Patient has stop smoking in 2021, when she was diagnosed with corner artery disease Anxiety disorder:? Patient is doing well with sertraline 100 mg and lorazepam 0.5 mg once a day.? Lorazepam script sent for next 3 month Patient is aware of side effects like , this medication has a risk of being habit forming, slowing of relfexes, dizziness, and its controlled in nature, will need 3 M visit Blood pressure is stable she is to continue metoprolol 200 mg daily, and Procardia 60 mg daily Dyspepsia treatment through Gastroenterology.? Patient has not had any heartburn since she has started taking omeprazole Lipid control through Cardiology Impaired fasting sugar, stable BMI is elevated patient is trying to lose weight Follow-up 3 months Orders: Orders 2 Fungus Cult Hair/Skin/Nail Today L60.8 - Other nail disorders Medications: Refilled 2 lorazepam 0.5 mg PO DAILY PRN 30 tabs 2RF anxiety 30 days F41.1 - Generalized anxiety disorder Coding Level of Care Code Est Pt Level 4 (16373) Diagnoses Toenail deformity L60.8 Hypertension, essential I10 Anxiety, generalized F41.1 Lipid disorder E78.9 Chronic GERD K21.9 Atherosclerotic cardiovascular disease I25.10 Impaired fasting blood sugar R73.01 Class 1 obesity due to excess calories with serious comorbidity and body mass index (BMI) of 30.0 to 30.9 in adult E66.09; Z68.30 Body mass index: BMI 30.0-30.9 Obesity classification: adult class 1 (BMI 30 - 34.9) Serious obesity comorbidity presence: with serious comorbidity Additional Codes TANIA-7 Assessment Billing - TANIA-7 Assessment Tool: TANIA-7 Assessment [id number] ([id number])
== END 2023-07-12 15:19 | disposition home or self-care (01) ==
PROVIDERS: PCP Internal Medicine; Visit Provider Internal Medicine
DX: I10 Essential (primary) hypertension (principal); L60.8 Other nail disorders; F41.1 Generalized anxiety disorder; E78.9 Disorder of lipoprotein metabolism, unspecified; K21.9 Gastro-esophageal reflux disease without esophagitis; I25.10 Atherosclerotic heart disease of native coronary artery without angina pectoris; R73.01 Impaired fasting glucose; E66.09 Other obesity due to excess calories; Z68.30 Body mass index [BMI] 30.0-30.9, adult
CPT/HCPCS: 99214

== ENCOUNTER 2023-10-11 11:45 | Outpatient (AMB) | payer BC, SELFPAY ==
[2023-10-11 11:51] VITALS: BP 124/78; PULSE 70; O2SAT 98; BMI 30.4
--- NOTE | 2023-10-11 11:51 | MHC.PC.OV ---
Vital Signs 10/11/23 11:51 Height 5 ft 6 in Weight 188 lb 2 oz BMI 30.4 BP 124/78 Blood Pressure Location Rt brachial Position Sitting Pulse 70 Pulse Source Pulse Oximeter Pulse Oximetry (%) 98 Oxygen Delivery Method Room Air Intake Visit Reasons: 3M F/U Meds Allergies No Known Allergies Allergy (Verified 10/11/23 11:54) Medication List - Last Reconciled 10/11/23 by Duglas Nugent MD aspirin (Adult Aspirin Regimen) 81 mg PO DAILY atorvastatin 80 mg PO BEDTIME ezetimibe 10 mg PO DAILY lorazepam 0.5 mg PO DAILY PRN 30 days methylcellulose (laxative) (Citrucel) 500 mg PO TID metoprolol succinate ER 200 mg PO DAILY 90 days nifedipine ER 60 mg PO DAILY 90 days omeprazole 20 mg PO BID 90 days sertraline 100 mg PO DAILY 90 days Tobacco use date assessed: 10/11/23 Dental Screening Dental Screen Date: 10/11/23 Did you have a dental visit in the last 12 months?: Yes Did you have a dental problem in the last 6 months where you did not have access to dental care?: No Was dental information given to patient?: Patient has dentist HPI 3M F/U Meds HPI Details Patient is a 58-year-old female this is regular 3 month follow-up visit Last set of lab reviewed Patient has stop smoking in 2021, when she was diagnosed with corner artery disease Anxiety disorder:? Patient is doing well with sertraline 100 mg and lorazepam 0.5 mg once a day.? Lorazepam script sent for next 3 month Patient is aware of side effects like , this medication has a risk of being habit forming, slowing of relfexes, dizziness, and its controlled in nature, will need 3 M visit Blood pressure is stable she is to continue metoprolol 200 mg daily, and Procardia 60 mg daily Dyspepsia : Patient has not had any heartburn since she has started taking omeprazole Lipid control through Cardiology Impaired fasting sugar, stable BMI is elevated patient is trying to lose weight Follow-up 3 months labs are needed before next visit [facility] Medical History Hyperlipidemia GERD (gastroesophageal reflux disease) On beta hina at home Anxiety Dysphagia Smoking Other and unspecified hyperlipidemia Essential hypertension Atherosclerotic cardiovascular disease Surgical History History of esophagogastroduodenoscopy (EGD) H/O heart artery stent History of colonoscopy Status post lumbar microdiscectomy Family History Father Crohn's disease Colon cancer, Onset Age: 70 Mother No problems noted. Maternal Grandmother Unknown family medical history Maternal Grandfather Unknown family medical history Paternal Grandmother Unknown family medical history Brother Substance use disorder Brother No problems noted. Sister No problems noted. Sister No problems noted. Sister No problems noted. Son No problems noted. Daughter No problems noted. Social History Household Members: Spouse Housing: House Alcohol intake: current Alcohol intake frequency: holidays/special occasions only Patient Tobacco Use Status: Former Tobacco user Tobacco use type: Cigarette e-Cigarette/Vaping Use: Never Used service: No Current occupational status: employed Current occupation: [employer] Cognitive needs: No Hearing needs: No Vision needs: No Questionnaire Thrive Questionnaire Date Thrive assessed: 07/12/23 AUDIT C Alcohol Use Questionnaire (AUDIT-C) 1. How often do you have a drink containing alcohol?: 2-4 times a month 2. How many drinks containing alcohol do you have on a typical day when you are drinking?: 1 or 2 3. How often do you have six or more drinks on one occasion?: Never Total Score: 2 Score Reviewed/Action Taken: Yes TANIA-7 AMB Questionnaire TANIA-7 Date TANIA - 7 assessed: 07/12/23 Source: Developed by Drs. Vijay Sutton, Nicole Frey, [place] and colleagues, with an educational rich from [employer]. Review of Systems Const Denies chills and Denies fever(s) ENT Denies epistaxis and Denies nasal discharge Card Denies chest pain Resp Denies chest congestion, Denies cough and Denies hemoptysis GI Denies diarrhea and Denies nausea Skin/Breast Denies rash Neuro Reports no additional complaints Psych Reports no additional complaints Endo Reports no additional complaints Physical exam (Primary Care) Vital Signs: Last Vital Signs Pulse 70 10/11/23 11:51 BP 124/78 10/11/23 11:51 Pulse Ox 98 10/11/23 11:51 Oxygen Delivery Method Room Air 10/11/23 11:51 BMI result Body Mass Index 30.4 Tobacco/Smoking Status: Tobacco use Status Tobacco use date assessed 10/11/23 10/11/23 11:54 Patient Tobacco Use Status Former Tobacco user 10/11/23 11:54 Tobacco use type Cigarette 10/11/23 11:54 e-Cigarette/Vaping Use Never Used 10/11/23 11:54 Thrive Assessment: Date of Thrive Assessment Date Thrive assessed 07/12/23 10/11/23 11:54 Const General: cooperative, comfortable and no acute distress Orientation/consciousness: patient oriented x3 HENMT Head: Yes normocephalic Eyes General: appearance normal, both eyes and all related structures Neck Neck: Yes supple Resp Effort & Inspection: normal respiratory effort, no cough and no stridor Cardio Rhythm: regular rhythm Heart sounds: S1 normal heart sound present and S2 normal heart sound present Skin General skin exam: turgor normal Neuro General: patient oriented x3, tone normal and moves all extremities Extrem Right lower extremity: no edema Left lower extremity: no edema Assessment and Plan Assessment & Plan (1) Hypertension, essential: Code(s): I10 - Essential (primary) hypertension (2) Anxiety, generalized: Code(s): F41.1 - Generalized anxiety disorder (3) Lipid disorder: Code(s): E78.9 - Disorder of lipoprotein metabolism, unspecified (4) Chronic GERD: Code(s): K21.9 - Gastro-esophageal reflux disease without esophagitis (5) Atherosclerotic cardiovascular disease: Code(s): I25.10 - Atherosclerotic heart disease of [place] coronary artery without angina pectoris (6) Impaired fasting blood sugar: Code(s): R73.01 - Impaired fasting glucose (7) Obesity due to excess calories: Code(s): E66.09 - Other obesity due to excess calories Qualifiers: Body mass index: BMI 30.0-30.9 Obesity classification: adult class 1 (BMI 30 - 34.9) Serious obesity comorbidity presence: with serious comorbidity Qualified Code(s): E66.09 - Other obesity due to excess calories; Z68.30 - Body mass index [BMI] 30.0-30.9, adult Plan Patient is a 58-year-old female this is regular 3 month follow-up visit Last set of lab reviewed Patient has stop smoking in 2021, when she was diagnosed with corner artery disease Anxiety disorder:? Patient is doing well with sertraline 100 mg and lorazepam 0.5 mg once a day.? Lorazepam script sent for next 3 month Patient is aware of side effects like , this medication has a risk of being habit forming, slowing of relfexes, dizziness, and its controlled in nature, will need 3 M visit Blood pressure is stable she is to continue metoprolol 200 mg daily, and Procardia 60 mg daily Dyspepsia : Patient has not had any heartburn since she has started taking omeprazole Lipid control through Cardiology Impaired fasting sugar, stable BMI is elevated patient is trying to lose weight Follow-up 3 months labs are needed before next visit Orders: Orders Complete Blood Count Auto Diff 3 Months E78.9 - Disorder of lipoprotein metabolism, unspecified, F41.1 - Generalized anxiety disorder, I10 - Essential (primary) hypertension, I25.10 - Atherosclerotic heart disease of [place] coronary artery without angina pectoris, K21.9 - Gastro-esophageal reflux disease without esophagitis, R73.01 - Impaired fasting glucose Comprehensive [place]. Panel Fast 3 Months E78.9 - Disorder of lipoprotein metabolism, unspecified, F41.1 - Generalized anxiety disorder, I10 - Essential (primary) hypertension, I25.10 - Atherosclerotic heart disease of [place] coronary artery without angina pectoris, K21.9 - Gastro-esophageal reflux disease without esophagitis, R73.01 - Impaired fasting glucose Lipid Panel 3 Months E78.9 - Disorder of lipoprotein metabolism, unspecified, F41.1 - Generalized anxiety disorder, I10 - Essential (primary) hypertension, I25.10 - Atherosclerotic heart disease of [place] coronary artery without angina pectoris, K21.9 - Gastro-esophageal reflux disease without esophagitis, R73.01 - Impaired fasting glucose Hemoglobin A1c Today R73.01 - Impaired fasting glucose Medications: Refilled lorazepam 0.5 mg PO DAILY PRN 30 tabs 2RF anxiety 30 days F41.1 - Generalized anxiety disorder Coding Level of Care Code Est Pt Level 4 (67381) Diagnoses Hypertension, essential I10 Anxiety, generalized F41.1 Lipid disorder E78.9 Chronic GERD K21.9 Atherosclerotic cardiovascular disease I25.10 Impaired fasting blood sugar R73.01 Class 1 obesity due to excess calories with serious comorbidity and body mass index (BMI) of 30.0 to 30.9 in adult E66.09; Z68.30 Body mass index: BMI 30.0-30.9 Obesity classification: adult class 1 (BMI 30 - 34.9) Serious obesity comorbidity presence: with serious comorbidity
== END 2023-10-11 14:04 | disposition home or self-care (01) ==
PROVIDERS: PCP Internal Medicine; Visit Provider Internal Medicine
DX: I10 Essential (primary) hypertension (principal); F41.1 Generalized anxiety disorder; E78.9 Disorder of lipoprotein metabolism, unspecified; K21.9 Gastro-esophageal reflux disease without esophagitis; I25.10 Atherosclerotic heart disease of native coronary artery without angina pectoris; R73.01 Impaired fasting glucose; E66.09 Other obesity due to excess calories; Z68.30 Body mass index [BMI] 30.0-30.9, adult
CPT/HCPCS: 99214

== ENCOUNTER 2023-11-03 14:18 | Outpatient (AMB) | payer BC, SELFPAY ==
[2023-11-03 14:20] VITALS: BP 120/64; PULSE 57; BMI 30.9
--- NOTE | 2023-11-03 14:20 | MHC.OFFVIS ---
Vital Signs 11/03/23 14:20 Height 5 ft 6 in Weight 191 lb 5.78 oz BMI 30.9 BP 120/64 Blood Pressure Location Lt brachial Position Sitting Pulse 57 Pulse Source Monitor Intake Visit Reasons: 1 yr f/up Flatwork Folder Required: No Accompanied by: Self / Same As Patient Allergies No Known Allergies Allergy (Verified 10/11/23 11:54) HPI Comments Details: 58-year-old female presents today for a one year follow-up. She reports she has been doing well with no big changes. She denies chest pains, swelling, shortness of breath, or orthopnea. She states she has not returned to smoking but has turned to enjoying food more. She is compliant with all her medications. [facility] Medical History Hyperlipidemia GERD (gastroesophageal reflux disease) On beta hina at home Anxiety Dysphagia Smoking Other and unspecified hyperlipidemia Essential hypertension Atherosclerotic cardiovascular disease Surgical History History of esophagogastroduodenoscopy (EGD) H/O heart artery stent History of colonoscopy Status post lumbar microdiscectomy Family History Father Crohn's disease Colon cancer, Onset Age: 70 Mother No problems noted. Maternal Grandmother Unknown family medical history Maternal Grandfather Unknown family medical history Paternal Grandmother Unknown family medical history Brother Substance use disorder Brother No problems noted. Sister No problems noted. Sister No problems noted. Sister No problems noted. Son No problems noted. Daughter No problems noted. Social History Household Members: Spouse Housing: House Alcohol intake: current Alcohol intake frequency: holidays/special occasions only Patient Tobacco Use Status: Former Tobacco user Tobacco use type: Cigarette e-Cigarette/Vaping Use: Never Used service: No Current occupational status: employed Current occupation: [employer] Cognitive needs: No Hearing needs: No Vision needs: No Review of Systems Const Denies chills, Denies fatigue, Denies fever(s), Denies frequent falls, Denies weakness, Denies weight gain and Denies weight loss ENT Denies dizziness Card Denies chest pain, Denies leg edema, Denies lightheadedness, Denies palpitations, Denies dyspnea and Denies dyspnea on exertion Resp Denies cough, Denies dyspnea and Denies dyspnea on exertion GI Denies hematochezia Musc Denies abnormal gait, Denies muscle weakness, Denies numbness, Denies radiating pain into limb and Denies tingling Neuro Denies abnormal gait, Denies dizziness, Denies frequent falls, Denies numbness, Denies tingling and Denies weakness Endo Denies fatigue and Denies palpitations Physical Exam Vital Signs: Last Vital Signs Pulse 57 11/03/23 14:20 BP 120/64 11/03/23 14:20 BMI result Body Mass Index 30.9 Const General: healthy appearing and no acute distress Orientation/consciousness: patient oriented x3 HEENT Head: Yes normal to inspection Eyes General: appearance normal, both eyes and all related structures Neck Neck: Yes normal visual inspection Chest Chest palpation & inspection: normal inspection of the chest Resp Effort & Inspection: normal respiratory effort Auscultation: clear to auscultation bilaterally Cardio Jugular venous distension: no JVD Palpation: normal PMI Rate: regular rate Rhythm: regular rhythm Heart sounds: S1 normal heart sound present, S2 normal heart sound present, no click, no gallops, no murmurs and no rubs GI Inspection: Yes normal to inspection Palpation (GI): Soft to palpation Skin General skin exam: no rashes or lesions noted Neuro General: patient oriented x3 Extrem General: Yes normal to inspection Psych Appearance: grossly normal Office Procedures EKG Details: EKG today. Sinus Bradycardia. Moderate Voltage criteria for LVH, may be normal variant. Rate 57 bpm. QRS 74ms. QTc 439 ms. VA 164ms. [id number], Complete Assessment & Plan Assessment & Plan (1) Atherosclerotic cardiovascular disease: Code(s): I25.10 - Atherosclerotic heart disease of [place] coronary artery without angina pectoris Category: Medical (2) Lipid disorder: Code(s): E78.9 - Disorder of lipoprotein metabolism, unspecified Category: Medical (3) Smoking: Code(s): F17.200 - Nicotine dependence, unspecified, uncomplicated Category: Social Hx (4) Essential hypertension: Code(s): I10 - Essential (primary) hypertension Category: Medical Plan Cardiac catheterization back in 2020 with proximal and mid LAD stent. She is on asa 81mg detention. On atorvastatin 80mg and zetia 10mg. last LDL in June this year was 87. Discussed in detail that despite her LDL is much better a goal of under 70 is needed due to history of PCI. Discussed next step to consider is PCSK9. Patient would like to avoid injectable. She is going to work on her eating - repeat labs in 2-3 months. Blood pressure within goal. Patient has quit smoking - congratulated and encouraged to not return to smoking. Orders: Orders Lipid Panel 11/03/23 I25.10 - Atherosclerotic heart disease of [place] coronary artery without angina pectoris Basic Metabolic Panel 11/03/23 I25.10 - Atherosclerotic heart disease of [place] coronary artery without angina pectoris Coding Level of Care Code Est Pt Level 4 (03898) Diagnoses Atherosclerotic cardiovascular disease I25.10 Lipid disorder E78.9 Smoking F17.200 Essential hypertension I10 CPT Codes EKG - CPT: 26425-[id number], Complete ([id number])
== END 2023-11-03 14:49 | disposition home or self-care (01) ==
PROVIDERS: PCP Internal Medicine; Visit Provider Nurse Practitioner
DX: I25.10 Atherosclerotic heart disease of native coronary artery without angina pectoris (principal); E78.9 Disorder of lipoprotein metabolism, unspecified; F17.200 Nicotine dependence, unspecified, uncomplicated; I10 Essential (primary) hypertension
CPT/HCPCS: 93010; 99214

== ENCOUNTER → 2023-11-03 14:18 | Outpatient (BNVA) | payer BC, SELFPAY | PROVIDERS: PCP Internal Medicine; Visit Provider Nurse Practitioner | DX: I25.10 Atherosclerotic heart disease of native coronary artery without angina pectoris (principal); E78.9 Disorder of lipoprotein metabolism, unspecified; I10 Essential (primary) hypertension; Z79.82 Long term (current) use of aspirin; Z79.899 Other long term (current) drug therapy; Z87.891 Personal history of nicotine dependence | CPT/HCPCS: 93005 ==

== ENCOUNTER 2024-01-10 15:24 | Outpatient (AMB) | payer BC, SELFPAY ==
[2024-01-10 15:28] VITALS: BP 120/78; PULSE 72; O2SAT 97; BMI 30.6
--- NOTE | 2024-01-10 15:28 | MHC.PC.OV ---
Vital Signs 01/10/24 15:28 Height 5 ft 6 in Weight 189 lb 8 oz BMI 30.6 BP 120/78 Blood Pressure Location Rt brachial Position Sitting Pulse 72 Pulse Source Pulse Oximeter Pulse Oximetry (%) 97 Oxygen Delivery Method Room Air Intake Visit Reasons: 6M F/U Meds Allergies No Known Allergies Allergy (Verified 01/10/24 15:28) Medication List - Last Reconciled 01/10/24 by Duglas Nugent MD aspirin (Adult Aspirin Regimen) 81 mg PO DAILY atorvastatin 80 mg PO BEDTIME ezetimibe 10 mg PO DAILY lorazepam 0.5 mg PO DAILY PRN 30 days methylcellulose (laxative) (Citrucel) 500 mg PO TID metoprolol succinate ER 200 mg PO DAILY 90 days nifedipine ER 60 mg PO DAILY 90 days omeprazole 20 mg PO BID 90 days sertraline 100 mg PO DAILY 90 days Tobacco use date assessed: 01/10/24 Dental Screening Dental Screen Date: 01/10/24 Did you have a dental visit in the last 12 months?: Yes Did you have a dental problem in the last 6 months where you did not have access to dental care?: No Was dental information given to patient?: Patient has dentist HPI 6M F/U Meds HPI Details Patient is a 58-year-old female this is regular 3 month follow-up visit Doing well offer no new complaints Due for labs, order is in the system patient forgot to do it Reminded to do it tomorrow Patient has stop smoking in 2021, when she was diagnosed with corner artery disease Anxiety disorder:? Patient is doing well with sertraline 100 mg and lorazepam 0.5 mg once a day.? Lorazepam script sent for next 3 month Patient is aware of side effects like , this medication has a risk of being habit forming, slowing of relfexes, dizziness, and its controlled in nature, will need 3 M visit Blood pressure is stable she is to continue metoprolol 200 mg daily, and Procardia 60 mg daily Dyspepsia : Patient has not had any heartburn since she has started taking omeprazole Lipid management through Cardiology Impaired fasting sugar, stable BMI is elevated patient is trying to lose weight Patient has appointment end of March for follow-up [facility] Medical History Hyperlipidemia GERD (gastroesophageal reflux disease) On beta hina at home Anxiety Dysphagia Smoking Other and unspecified hyperlipidemia Essential hypertension Atherosclerotic cardiovascular disease Surgical History History of esophagogastroduodenoscopy (EGD) H/O heart artery stent History of colonoscopy Status post lumbar microdiscectomy Family History Father Crohn's disease Colon cancer, Onset Age: 70 Mother No problems noted. Maternal Grandmother Unknown family medical history Maternal Grandfather Unknown family medical history Paternal Grandmother Unknown family medical history Brother Substance use disorder Brother No problems noted. Sister No problems noted. Sister No problems noted. Sister No problems noted. Son No problems noted. Daughter No problems noted. 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 1. Little interest or pleasure in doing things: not at all 2. Feeling down, depressed, or hopeless: not at all 3. Trouble falling or staying asleep, or sleeping too much: several days 4. Feeling tired or having little energy: several days 5. Poor appetite or overeating: more than half the days 6. Feeling bad about yourself - or that you are a failure or have let yourself or your family down: several days 7. Trouble concentrating on things, such as reading the newspaper or watching television: several days 8. Moving or speaking so slowly that other people could have noticed. Or the opposite - being so fidgety or restless that you have been moving around a lot more than usual: not at all 9. Thoughts that you would be better off or of hurting yourself in some way: not at all Total score: 6 Depression Screening Interpretation: Negative Depression Screening Done: Yes 86772 - PHQ-9 Billing: Yes Source: Developed by Drs. Vijay Sutton, Nicole Frey, Oz Grove and colleagues, with an educational rich from [employer]. Thrive Questionnaire Date Thrive assessed: 01/10/24 I am a: Patient What is your living situation today?: I have a steady place to live Within the past 12 months, did the food you bought not last and you didn't have the money to get more?: Never true Within the past 12 months, did you worry whether your food would run out before you got money to buy more?: Never true Do you have trouble paying for medicines?: No Do you have trouble getting transportation to medical appointments?: No Do you have trouble paying your heating and electricity bill?: No Do you have trouble taking care of your child, family member or friend?: No Do you have trouble with day-to-day activities such as bathing, preparing meals, shopping, managing finances, etc.?: No Are you currently unemployed and looking for a job?: No Are you interested in more education?: No Please select the resources that you would like help with: None Currently or been in a relationship where the following occur: No concerns reported THRIVE Score: 0 AUDIT C Alcohol Use Questionnaire (AUDIT-C) 1. How often do you have a drink containing alcohol?: 2-4 times a month 2. How many drinks containing alcohol do you have on a typical day when you are drinking?: 1 or 2 3. How often do you have six or more drinks on one occasion?: Never Total Score: 2 Score Reviewed/Action Taken: Yes TANIA-7 AMB Questionnaire TANIA-7 Date TANIA - 7 assessed: 01/10/24 Feeling nervous, anxious, or on edge: 1 = Several days Not being able to stop or control worryin = Several days Worrying too much about different things: 1 = Several days Trouble relaxin = Several days Being so restless that it is hard to sit still: 1 = Several days Becoming easily annoyed or irritable: 1 = Several days Feeling afraid as if something awful might happen: 2 = More than half the days Total TANIA-7 score (0-4 normal; 5-9 mild; 10-14 moderate; 15-21 severe): 8 Source: Developed by Drs. Vijay Sutton, Nicole Oz Huggins and colleagues, with an educational rich from [employer]. TANIA-7 Assessment Billing TANIA-7 Assessment Tool: TANIA-7 Assessment 44609 Review of Systems Const Denies chills and Denies fever(s) ENT Denies epistaxis and Denies nasal discharge Card Denies chest pain Resp Denies chest congestion, Denies cough and Denies hemoptysis GI Denies diarrhea and Denies nausea Skin/Breast Denies rash Neuro Reports no additional complaints Psych Reports no additional complaints Endo Reports no additional complaints Physical exam (Primary Care) Vital Signs: Last Vital Signs Pulse 72 01/10/24 15:28 BP 120/78 01/10/24 15:28 Pulse Ox 97 01/10/24 15:28 Oxygen Delivery Method Room Air 01/10/24 15:28 BMI result Body Mass Index 30.6 Tobacco/Smoking Status: Tobacco use Status Tobacco use date assessed 01/10/24 01/10/24 15:30 Patient Tobacco Use Status Former Tobacco user 01/10/24 15:30 Tobacco use type Cigarette 01/10/24 15:30 e-Cigarette/Vaping Use Never Used 01/10/24 15:30 PHQ-9: PHQ-9 Score PHQ-9: Total score 6 01/10/24 15:39 Depression Screening Interpretation: Negative Thrive Assessment: Date of Thrive Assessment Date Thrive assessed 01/10/24 01/10/24 15:34 Currently or been in a relationship where the following occur: No concerns reported Const General: cooperative, comfortable and no acute distress Orientation/consciousness: patient oriented x3 HENMT Head: Yes normocephalic Eyes General: appearance normal, both eyes and all related structures Neck Neck: Yes supple Resp Effort & Inspection: normal respiratory effort, no cough and no stridor Cardio Rhythm: regular rhythm Heart sounds: S1 normal heart sound present and S2 normal heart sound present Skin General skin exam: turgor normal Neuro General: patient oriented x3, tone normal and moves all extremities Extrem Right lower extremity: no edema Left lower extremity: no edema Coding Level of Care Code Est Pt Level 4 (56521) Diagnoses Essential hypertension I10 Anxiety, generalized F41.1 Lipid disorder E78.9 Chronic GERD K21.9 Atherosclerotic cardiovascular disease I25.10 Impaired fasting blood sugar R73.01 Additional Codes TANIA-7 Assessment Billing - TANIA-7 Assessment Tool: TANIA-7 Assessment 78674 ([id number]) Assessment & Plan Assessment & Plan (1) Essential hypertension: Code(s): I10 - Essential (primary) hypertension Category: Medical (2) Anxiety, generalized: Code(s): F41.1 - Generalized anxiety disorder Category: Medical (3) Lipid disorder: Code(s): E78.9 - Disorder of lipoprotein metabolism, unspecified Category: Medical (4) Chronic GERD: Code(s): K21.9 - Gastro-esophageal reflux disease without esophagitis Category: Medical (5) Atherosclerotic cardiovascular disease: Code(s): I25.10 - Atherosclerotic heart disease of [place] coronary artery without angina pectoris Category: Medical (6) Impaired fasting blood sugar: Code(s): R73.01 - Impaired fasting glucose Category: Medical Plan Patient is a 58-year-old female this is regular 3 month follow-up visit Doing well offer no new complaints Due for labs, order is in the system patient forgot to do it Reminded to do it tomorrow Patient has stop smoking in 2021, when she was diagnosed with corner artery disease Anxiety disorder:? Patient is doing well with sertraline 100 mg and lorazepam 0.5 mg once a day.? Lorazepam script sent for next 3 month Patient is aware of side effects like , this medication has a risk of being habit forming, slowing of relfexes, dizziness, and its controlled in nature, will need 3 M visit Blood pressure is stable she is to continue metoprolol 200 mg daily, and Procardia 60 mg daily Dyspepsia : Patient has not had any heartburn since she has started taking omeprazole Lipid management through Cardiology Impaired fasting sugar, stable BMI is elevated patient is trying to lose weight Patient has appointment end of March for follow-up Medications: Refilled omeprazole 20 mg PO BID 90 days 180 caps 0RF K21.9 - Gastro-esophageal reflux disease without esophagitis sertraline 100 mg PO DAILY 90 days 90 tabs 0RF nifedipine ER 60 mg PO DAILY 90 days 90 tabs 0RF metoprolol succinate ER 200 mg PO DAILY 90 days 90 tabs 3RF I10 - Essential (primary) hypertension lorazepam 0.5 mg PO DAILY 30 days PRN 30 tabs 2RF anxiety F41.1 - Generalized anxiety disorder
== END 2024-01-10 15:46 | disposition home or self-care (01) ==
PROVIDERS: PCP Internal Medicine; Visit Provider Internal Medicine
DX: I10 Essential (primary) hypertension (principal); F41.1 Generalized anxiety disorder; E78.9 Disorder of lipoprotein metabolism, unspecified; K21.9 Gastro-esophageal reflux disease without esophagitis; I25.10 Atherosclerotic heart disease of native coronary artery without angina pectoris; R73.01 Impaired fasting glucose

== ENCOUNTER → 2024-01-10 15:24 | Outpatient (BNVA) | payer BC, SELFPAY | PROVIDERS: PCP Internal Medicine; Visit Provider Internal Medicine | DX: I10 Essential (primary) hypertension (principal); F41.1 Generalized anxiety disorder; E78.9 Disorder of lipoprotein metabolism, unspecified; K21.9 Gastro-esophageal reflux disease without esophagitis; I25.10 Atherosclerotic heart disease of native coronary artery without angina pectoris; R73.01 Impaired fasting glucose; Z79.899 Other long term (current) drug therapy | CPT/HCPCS: 96127 ==

== ENCOUNTER 2024-01-13 09:15 | Outpatient (REF) | payer BC, SELFPAY ==
[2024-01-13 10:59] LABS: MANUAL DIFF FLAG NO
[2024-01-13 11:22] LABS: Basophils Percent Auto 0.4 % (0-2); Eosinophils Absolute Auto 0.1 X10*3/uL (0.0-0.4); Eosinophils Percent Auto 2.6 % (0-4); Hematocrit 36.8 % (37.0-47.0); Hemoglobin 12.7 g/dl (12.0-16.0); Imm Gran Abs Auto 0.01 X10*3/uL (0.00-0.03); Imm Gran Pct Auto 0.2 % (0.0-0.4); Lymphocytes Absolute Auto 1.4 X10*3/uL (1.2-4.9); Lymphocytes Percent Auto 31.3 % (20-40); Mean Corpuscular HGB Conc 34.5 g/dl (31.0-35.0); Mean Corpuscular Volume 89.8 fL (80.0-98.0); Mean Platelet Volume 9.3 fL (9.4-12.3); Monocytes Absolute Auto 0.3 X10*3/uL (0.1-1.2); Monocytes Percent Auto 6.4 % (2-11); Neutrophils Absolute Auto 2.7 x10*3/uL (2.0-8.3); Neutrophils Percent Auto 59.1 % (45-73); Platelet Count 155 X10*3/uL (160-400); Red Cell Distribution Width 12.9 % (11.0-16.0); White Blood Count 4.5 X10*3/uL (4.8-10.8)
[2024-01-13 12:07] LABS: Alanine Aminotransferase 22 U/L (0-31); Albumin Level 4.2 g/dL (3.5-5.0); Alkaline Phosphatase 56 U/L (39-117); Anion Gap 11 (12-20); Aspartate Amino Transferase 21 U/L (5-31); Bilirubin Total 0.7 mg/dL (0.0-1.0); Blood Urea Nitrogen 13 mg/dL (9-16); Calcium 8.8 mg/dL (8.4-10.2); Carbon Dioxide 25 mmol/L (22-29); Chloride 107 mmol/L (96-108); Cholesterol 155 mg/dL (<200); Estimated Glomerular Filt Rate > 60; Glucose Fasting 93 mg/dL (60-99); HDL Cholesterol 67 mg/dL (>40); LDL Cholesterol Calculated 78 mg/dL (<100); Potassium 4.2 mmol/L (3.3-5.1); Sodium 139 mmol/L (135-145); Total Protein 6.8 g/dL (6.5-8.0); Triglycerides 50 mg/dL (<150)
== END 2024-01-13 09:16 | disposition home or self-care (01) ==
LOC: HO.HMGCLDS 09:15
PROVIDERS: PCP Internal Medicine; Visit Provider Internal Medicine
DX: R73.01 Impaired fasting glucose (principal); K21.9 Gastro-esophageal reflux disease without esophagitis; E78.9 Disorder of lipoprotein metabolism, unspecified; F41.1 Generalized anxiety disorder; I10 Essential (primary) hypertension; I25.10 Atherosclerotic heart disease of native coronary artery without angina pectoris
CPT/HCPCS: 36415; 80053; 80061; 85025

== ENCOUNTER 2024-04-09 14:53 | Outpatient (AMB) | payer BC, SELFPAY ==
[2024-04-09 14:57] VITALS: BP 114/78; PULSE 70; O2SAT 98; BMI 31.0
--- NOTE | 2024-04-09 14:57 | A.OFFPC_ITS ---
Vital Signs 04/09/24 14:57 Height 5 ft 6 in Weight 192 lb BMI 31.0 BP 114/78 Blood Pressure Location Rt brachial Position Sitting Pulse 70 Pulse Source Pulse Oximeter Pulse Oximetry (%) 98 Oxygen Delivery Method Room Air Intake Visit Reasons: 9M F/U Meds Allergies No Known Allergies Allergy (Verified 04/09/24 14:58) Medication List - Last Reconciled 04/09/24 by Duglas Nugent MD aspirin (Adult Aspirin Regimen) 81 mg PO DAILY atorvastatin 80 mg PO BEDTIME ezetimibe 10 mg PO DAILY lorazepam 0.5 mg PO DAILY PRN 30 days methylcellulose (laxative) (Citrucel) 500 mg PO TID metoprolol succinate ER 200 mg PO DAILY 90 days nifedipine ER 60 mg PO DAILY 90 days omeprazole 20 mg PO BID 90 days sertraline 100 mg PO DAILY 90 days Tobacco use date assessed: 04/09/24 Dental Screening Dental Screen Date: 04/09/24 Did you have a dental visit in the last 12 months?: Yes Did you have a dental problem in the last 6 months where you did not have access to dental care?: No Was dental information given to patient?: Patient has dentist HPI 9M F/U Meds HPI Details - The patient is a 58-year-old female pr esenting with medication refill. - Hyperlipidemia: Managed with atorvasta tin and ezetimibe through Cardiology office - Essential Hypertension: Current medica tion includes metoprolol and nifedipine, Blood pressure considered stable. - Anxiety and Depression: Currently nova ged with lorazepam and sertraline. - Gastroesophageal Reflux Disease: Treat ed with omeprazole. Management is stable. - Weight Management: Reports difficulty in losing weight despite a 1200-calorie diet and following Mediterranean diet plan. Regular gym visits noted with exercise involving biking. Problem List - Essential Hypertension - Hyperlipidemia - Constipation (resolved) - Anxiety - Gastroesophageal Reflux Disease - Overweight Medications - Aspirin for cardiovascular risk reduct ion - Atorvastatin for hyperlipidemia - Ezetimibe for hyperlipidemia - Lorazepam for anxiety - Metoprolol for hypertension - nifedipine for hypertension - Omeprazole for gastroesophageal reflux disease - Sertraline for depression [facility] - Dr White managing cholesterol le dontrell Review of Systems - Neurological: Denies headaches. - Psychological: Reports feeling frustra toni with weight management. 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 - Undergo laboratory tests before the ne xt visit to monitor health status. - Follow dietary recommendations focusin g on balanced meals, including increased vegetables, proteins, and reducing carbohydrate intake. - Practice meal discipline and avoid unn ecessary snacking. - Consider psychological reinforcement t echniques for meal control. - Continue exercise routine at the gym. - Prepare and consume chicken broth befo re dinner to improve satiety. - Return for follow-up in three months. [facility] Medical History Hyperlipidemia GERD (gastroesophageal reflux disease) On beta hina at home Anxiety Dysphagia Smoking Other and unspecified hyperlipidemia Essential hypertension Atherosclerotic cardiovascular disease Surgical History History of esophagogastroduodenoscopy (EGD) H/O heart artery stent History of colonoscopy Status post lumbar microdiscectomy Family History Father Crohn's disease Colon cancer, Onset Age: 70 Mother No problems noted. Maternal Grandmother Unknown family medical history Maternal Grandfather Unknown family medical history Paternal Grandmother Unknown family medical history Brother Substance use disorder Brother No problems noted. Sister No problems noted. Sister No problems noted. Sister No problems noted. Son No problems noted. Daughter No problems noted. Social History Household Members: Spouse Housing: House Alcohol intake: current Alcohol intake frequency: holidays/special occasions only Patient Tobacco Use Status: Former Tobacco user Tobacco use type: Cigarette e-Cigarette/Vaping Use: Never Used service: No Current occupational status: employed Current occupation: [employer] Cognitive needs: No Hearing needs: No Vision needs: No Questionnaire Thrive Questionnaire Date Thrive assessed: 01/03/24 I am a: Patient What is your living situation today?: I have a steady place to live Within the past 12 months, did the food you bought not last and you didn't have the money to get more?: Never true Within the past 12 months, did you worry whether your food would run out before you got money to buy more?: Never true Do you have trouble paying for medicines?: No Do you have trouble getting transportation to medical appointments?: No Do you have trouble paying your heating and electricity bill?: No Do you have trouble taking care of your child, family member or friend?: No Do you have trouble with day-to-day activities such as bathing, preparing meals, shopping, managing finances, etc.?: No Are you currently unemployed and looking for a job?: No Are you interested in more education?: No Please select the resources that you would like help with: None Currently or been in a relationship where the following occur: No concerns reported THRIVE Score: 0 TANIA-7 AMB Questionnaire TANIA-7 Date TANIA - 7 assessed: 01/10/24 Source: Developed by Drs. Vijay Sutton, Nicole Frey, [place] and colleagues, with an educational rich from [employer]. Physical exam (Primary Care) Vital Signs: Last Vital Signs Pulse 70 04/09/24 14:57 BP 114/78 04/09/24 14:57 Pulse Ox 98 04/09/24 14:57 Oxygen Delivery Method Room Air 04/09/24 14:57 BMI result Body Mass Index 31.0 Tobacco/Smoking Status: Tobacco use Status Tobacco use date assessed 04/09/24 04/09/24 14:58 Patient Tobacco Use Status Former Tobacco user 04/09/24 14:58 Tobacco use type Cigarette 04/09/24 14:58 e-Cigarette/Vaping Use Never Used 04/09/24 14:58 Thrive Assessment: Date of Thrive Assessment Date Thrive assessed 01/03/24 04/09/24 14:58 Currently or been in a relationship where the following occur: No concerns reported Coding Level of Care Code Est Pt Level 4 (30551) Diagnoses Essential hypertension I10 Other and unspecified hyperlipidemia E78.5 Chronic GERD K21.9 Lipid disorder E78.9 Anxiety, generalized F41.1 Impaired fasting blood sugar R73.01 Class 1 obesity due to excess calories with serious comorbidity and body mass index (BMI) of 30.0 to 30.9 in adult E66.09; Z68.30 Body mass index: BMI 30.0-30.9 Obesity classification: adult class 1 (BMI 30 - 34.9) Serious obesity comorbidity presence: with serious comorbidity Assessment & Plan Assessment & Plan (1) Essential hypertension: Code(s): I10 - Essential (primary) hypertension Category: Medical (2) Other and unspecified hyperlipidemia: Code(s): E78.5 - Hyperlipidemia, unspecified Category: Medical (3) Chronic GERD: Code(s): K21.9 - Gastro-esophageal reflux disease without esophagitis Category: Medical (4) Lipid disorder: Code(s): E78.9 - Disorder of lipoprotein metabolism, unspecified Category: Medical (5) Anxiety, generalized: Code(s): F41.1 - Generalized anxiety disorder Category: Medical (6) Impaired fasting blood sugar: Code(s): R73.01 - Impaired fasting glucose Category: Medical (7) Obesity due to excess calories: Code(s): E66.09 - Other obesity due to excess calories Category: Medical Qualifiers: Body mass index: BMI 30.0-30.9 Obesity classification: adult class 1 (BMI 30 - 34.9) Serious obesity comorbidity presence: with serious comorbidity Qualified Code(s): E66.09 - Other obesity due to excess calories; Z68.30 - Body mass index [BMI] 30.0-30.9, adult Plan - The patient is a 58-year-old female presenting with medication refill. - Hyperlipidemia: Managed with atorvastatin and ezetimibe through Cardiology office - Essential Hypertension: Current medication includes metoprolol and nifedipine, Blood pressure considered stable. - Anxiety and Depression: Currently managed with lorazepam and sertraline. - Gastroesophageal Reflux Disease: Treated with omeprazole. Management is stable. - Weight Management: Reports difficulty in losing weight despite a 1200-calorie diet and following Mediterranean diet plan. Regular gym visits noted with exercise involving biking. Problem List - Essential Hypertension - Hyperlipidemia - Constipation (resolved) - Anxiety - Gastroesophageal Reflux Disease - Overweight Medications - Aspirin for cardiovascular risk reduction - Atorvastatin for hyperlipidemia - Ezetimibe for hyperlipidemia - Lorazepam for anxiety - Metoprolol for hypertension - nifedipine for hypertension - Omeprazole for gastroesophageal reflux disease - Sertraline for depression [facility] - Dr White managing cholesterol level Review of Systems - Neurological: Denies headaches. - Psychological: Reports feeling frustrated with weight management. 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 - Undergo laboratory tests before the next visit to monitor health status. - Follow dietary recommendations focusing on balanced meals, including increased vegetables, proteins, and reducing carbohydrate intake. - Practice meal discipline and avoid unnecessary snacking. - Consider psychological reinforcement techniques for meal control. - Continue exercise routine at the gym. - Prepare and consume chicken broth before dinner to improve satiety. - Return for follow-up in three months Orders: Orders Hemoglobin A1c Today E66.09 - Other obesity due to excess calories, E78.5 - Hyperlipidemia, unspecified, E78.9 - Disorder of lipoprotein metabolism, unspecified, F41.1 - Generalized anxiety disorder, I10 - Essential (primary) hypertension, K21.9 - Gastro-esophageal reflux disease without esophagitis, R73.01 - Impaired fasting glucose, Z68.30 - Body mass index [BMI] 30.0-30.9, adult Lipid Panel Today E66.09 - Other obesity due to excess calories, E78.5 - Hyperlipidemia, unspecified, E78.9 - Disorder of lipoprotein metabolism, unspecified, F41.1 - Generalized anxiety disorder, I10 - Essential (primary) hypertension, K21.9 - Gastro-esophageal reflux disease without esophagitis, R73.01 - Impaired fasting glucose, Z68.30 - Body mass index [BMI] 30.0-30.9, adult Complete Blood Count Auto Diff Today E66.09 - Other obesity due to excess calories, E78.5 - Hyperlipidemia, unspecified, E78.9 - Disorder of lipoprotein metabolism, unspecified, F41.1 - Generalized anxiety disorder, I10 - Essential (primary) hypertension, K21.9 - Gastro-esophageal reflux disease without esophagitis, R73.01 - Impaired fasting glucose, Z68.30 - Body mass index [BMI] 30.0-30.9, adult Comprehensive [place]. Panel Fast Today E66.09 - Other obesity due to excess calories, E78.5 - Hyperlipidemia, unspecified, E78.9 - Disorder of lipoprotein metabolism, unspecified, F41.1 - Generalized anxiety disorder, I10 - Essential (primary) hypertension, K21.9 - Gastro-esophageal reflux disease without esophagitis, R73.01 - Impaired fasting glucose, Z68.30 - Body mass index [BMI] 30.0-30.9, adult Medications: Refilled lorazepam 0.5 mg PO DAILY PRN 30 tabs 2RF anxiety 30 days F41.1 - Generalized anxiety disorder
== END 2024-04-09 15:29 | disposition home or self-care (01) ==
PROVIDERS: PCP Internal Medicine; Visit Provider Internal Medicine
DX: I10 Essential (primary) hypertension (principal); E78.5 Hyperlipidemia, unspecified; K21.9 Gastro-esophageal reflux disease without esophagitis; E78.9 Disorder of lipoprotein metabolism, unspecified; F41.1 Generalized anxiety disorder; R73.01 Impaired fasting glucose; E66.09 Other obesity due to excess calories; Z68.30 Body mass index [BMI] 30.0-30.9, adult

== ENCOUNTER 2024-05-28 08:28 | Outpatient (REF) | payer BC, SELFPAY ==
--- OUTSIDE RECORDS SUMMARY | 2024-05-28 08:49 | XMS_ITS | Patient Health Record ---
Author Organization [facility] Address [address] [place] [address] Care Team Providers Care Maintenance Man Name Role Phone Debbi Evangelista Unavailable [phone] Reason For Referral No Information Medications Medication SIG (Take, Route, Frequency, Duration) Notes Start Date End Date Status Norethindrone Acetate 5MG 1 ORAL daily for -3 [facility]- 11/09 Active Sertraline HCl 50MG ORAL for -3 [facility]- 11/27/2013 Active Simvastatin 20MG ORAL for -3 [facility]- 11/27/2013 Active hydroCHLOROthiazide 12.5MG ORAL for -3 [facility]- 11/27/2013 Active Metoprolol Succinate ER 200MG ORAL for -3 [facility]- 11/28/19 14 Active Problems Problem Type SNOMED Code ICD Code Onset Dates Problem Status W/U Status Risk Notes Problem Hyperlipidemia (30489004) Other and unspecified hyperlipidemia (272.4) Active confirmed Major Problem Benign essential hypertension (0301733) Essential hypertension, benign (401.1) Active confirmed Major Problem Gynecological examination normal (131200750253228) Routine gynecological examination (V72.31) Active confirmed Major Problem Screening for malignant neoplasm of colon (624075074) Special screening for malignant neoplasms, colon (V76.51) Active confirmed Major Plan Of Treatment No Information Insurance Providers Payer Name Payer Address Payer Phone Subscriber Number Group Number Insured Name Patient Relationship to Insured Coverage Start Date Coverage End Date [employer] [address] [place] [address] [id number] NOEMI BARAJAS Self - patient is the insured
[2024-05-28 09:51] LABS: MANUAL DIFF FLAG NO
[2024-05-28 09:58] LABS: Basophils Percent Auto 0.6 % (0-2); Eosinophils Absolute Auto 0.1 X10*3/uL (0.0-0.4); Eosinophils Percent Auto 2.5 % (0-4); Hematocrit 39.6 % (37.0-47.0); Hemoglobin 13.2 g/dl (12.0-16.0); Imm Gran Abs Auto 0.01 X10*3/uL (0.00-0.03); Imm Gran Pct Auto 0.2 % (0.0-0.4); Lymphocytes Absolute Auto 1.5 X10*3/uL (1.2-4.9); Lymphocytes Percent Auto 30.3 % (20-40); Mean Corpuscular HGB Conc 33.3 g/dl (31.0-35.0); Mean Platelet Volume 9.4 fL (9.4-12.3); Monocytes Absolute Auto 0.3 X10*3/uL (0.1-1.2); Monocytes Percent Auto 5.5 % (2-11); Neutrophils Percent Auto 60.9 % (45-73); Platelet Count 172 X10*3/uL (160-400); Red Cell Distribution Width 13.1 % (11.0-16.0); White Blood Count 4.9 X10*3/uL (4.8-10.8)
[2024-05-28 10:07] LABS: Estimated Average Glucose 103 mg/dL; Hemoglobin A1C 114.4748 umol/L; Hemoglobin A1c % 5.2 % (<6.0)
[2024-05-28 10:40] LABS: Alanine Aminotransferase 24 U/L (0-31); Albumin Level 4.3 g/dL (3.5-5.0); Alkaline Phosphatase 49 U/L (39-117); Anion Gap 12 (12-20); Aspartate Amino Transferase 24 U/L (5-31); Bilirubin Total 0.5 mg/dL (0.0-1.0); Blood Urea Nitrogen 13 mg/dL (9-16); Calcium 9.3 mg/dL (8.4-10.2); Carbon Dioxide 28 mmol/L (22-29); Chloride 106 mmol/L (96-108); Cholesterol 141 mg/dL (<200); Estimated Glomerular Filt Rate > 60; Glucose Fasting 101 mg/dL (60-99); HDL Cholesterol 51 mg/dL (>40); LDL Cholesterol Calculated 78 mg/dL (<100); Potassium 4.6 mmol/L (3.3-5.1); Sodium 141 mmol/L (135-145); Total Protein 7.1 g/dL (6.5-8.0); Triglycerides 60 mg/dL (<150)
== END 2024-05-28 08:29 | disposition home or self-care (01) ==
LOC: HO.HMGCLDS 08:28
PROVIDERS: PCP Internal Medicine; Visit Provider Internal Medicine
DX: I10 Essential (primary) hypertension (principal); E78.5 Hyperlipidemia, unspecified; K21.9 Gastro-esophageal reflux disease without esophagitis; E78.9 Disorder of lipoprotein metabolism, unspecified; F41.1 Generalized anxiety disorder; R73.01 Impaired fasting glucose; E66.09 Other obesity due to excess calories; Z68.30 Body mass index [BMI] 30.0-30.9, adult
CPT/HCPCS: 36415; 80053; 80061; 83036; 85025

== ENCOUNTER 2024-07-09 14:50 | Outpatient (AMB) | payer BC, SELFPAY ==
[2024-07-09 14:52] VITALS: BP 136/78; PULSE 72; TEMP 36.7; O2SAT 98; BMI 29.3
--- NOTE | 2024-07-09 14:52 | A.OFFPC_ITS ---
Vital Signs 07/09/24 14:52 Height 5 ft 6 in Weight 181 lb 6 oz BMI 29.3 BP 136/78 Blood Pressure Location Rt brachial Position Sitting Pulse 72 Pulse Source Pulse Oximeter Temp 98.1 F Temp Source Oral Pulse Oximetry (%) 98 Oxygen Delivery Method Room Air Intake Visit Reasons: 3m follow up Allergies No Known Allergies Allergy (Verified 07/09/24 14:52) Medication List - Last Reconciled 07/09/24 by Duglas Nugent MD aspirin (Adult Aspirin Regimen) 81 mg PO DAILY atorvastatin 80 mg PO BEDTIME ezetimibe 10 mg PO DAILY lorazepam 0.5 mg PO DAILY PRN 30 days methylcellulose (laxative) (Citrucel) 500 mg PO TID metoprolol succinate ER 200 mg PO DAILY 90 days nifedipine ER 60 mg PO DAILY 90 days omeprazole 20 mg PO BID 90 days sertraline 100 mg PO DAILY 90 days Tobacco use date assessed: 07/09/24 Dental Screening Dental Screen Date: 07/09/24 Did you have a dental visit in the last 12 months?: Yes Did you have a dental problem in the last 6 months where you did not have access to dental care?: No Was dental information given to patient?: Patient has dentist HPI 3m follow up HPI Details History - bulleted - The patient is a 59 year old female pr esenting for a regular follow-up appointment and medication review. - Prediabetes: Discussed current status; fasting glucose slightly elevated at 101 mg/dL, previously noted impaired fasting glucose; emphasized diet management with already adopting similar measures; family history negative for diabetes; will monitor with future labs. - Hyperlipidemia: Managed with atorvasta tin and ezetimibe. Follow-up with cholesterol management is ongoing. - Essential Hypertension: Current medica tion includes metoprolol and amlodipine. Blood pressure considered stable. - Anxiety and Depression: Currently nova ged with lorazepam and sertraline. - Gastroesophageal Reflux Disease: Treat ed with omeprazole. Management is stable. - Constipation: Previously managed with docusate and fiber laxatives. Resolved. - Weight Management: Reports difficulty in losing weight despite a 1200-calorie diet and following Mediterranean diet plan. Regular gym visits noted with exercise involving biking. Problem List - Prediabetes - Essential Hypertension - Hyperlipidemia - Constipation (resolved) - Anxiety - Gastroesophageal Reflux Disease - Depression - Overweight Medications - Atorvastatin for hyperlipidemia - Ezetimibe (Zetia) for hyperlipidemia, prescribed by process control board operator Dr. White - Lorazepam for anxiety - Metoprolol for cardiovascular conditio ns - Nifedipine 60 mg for hypertension - Omeprazole 20 mg for gastroesophageal reflux disease - Sertraline 100 mg for depression - Aspirin for cardiovascular risk reduct ion Diagnostic results - Labs: - Complete Blood Count (CBC): No rmal, no anemia - Electrolytes: Normal - Kidney function: Normal - Fasting glucose: 101 mg/dL - Liver enzymes: Normal - Cholesterol levels: Good [place] of Care - Cardiology: Follow-up appointment with Dr. White on October 31 Review of Systems General: No fever no chills neurological: No headaches no dizziness ear nose throat: No sore throat no hearing difficulty no ear pain cardiovascular: No syncope, no chest pain, no palpitations gastrointestinal: No nausea vomiting or diarrhea endocrine: No polyuria polydipsia no heat intolerance genitourinary: No dysuria skin: No new complaints Physical Exam general: No acute distress HEENT: No acute findings neck: Supple respiratory system: Able to talk in full sentences, no audible wheeze no stridor cardiovascular: S1-S2 gastrointestinal: No pain extremities: No new findings PANEL INSTALLER: Alert awake oriented x3 motor sensory intact skin: Normal turgor, no palpable bump on forehead Patient Instructions - Continue current medication regimen - Adhere to a diet that minimizes sweets and white flour products - Monitor upcoming lab results, repeat l abs before next visit - Next follow-up appointment scheduled or October 08 - Follow-up with cardiology on October 31 - Follow dietary recommendations focusin g on balanced meals, including increased vegetables, proteins, and reducing carbohydrate intake. PFSH Medical History Hyperlipidemia GERD (gastroesophageal reflux disease) On beta hina at home Anxiety Dysphagia Smoking Other and unspecified hyperlipidemia Essential hypertension Atherosclerotic cardiovascular disease Surgical History History of esophagogastroduodenoscopy (EGD) H/O heart artery stent History of colonoscopy Status post lumbar microdiscectomy Family History Father Crohn's disease Colon cancer, Onset Age: 70 Mother No problems noted. Maternal Grandmother Unknown family medical history Maternal Grandfather Unknown family medical history Paternal Grandmother Unknown family medical history Brother Substance use disorder Brother No problems noted. Sister No problems noted. Sister No problems noted. Sister No problems noted. Son No problems noted. Daughter No problems noted. 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 1. Little interest or pleasure in doing things: not at all 2. Feeling down, depressed, or hopeless: not at all 3. Trouble falling or staying asleep, or sleeping too much: several days 4. Feeling tired or having little energy: several days 5. Poor appetite or overeating: not at all 6. Feeling bad about yourself - or that you are a failure or have let yourself or your family down: several days 7. Trouble concentrating on things, such as reading the newspaper or watching television: several days 8. Moving or speaking so slowly that other people could have noticed. Or the opposite - being so fidgety or restless that you have been moving around a lot more than usual: not at all 9. Thoughts that you would be better off or of hurting yourself in some way: not at all Total score: 4 Depression Screening Interpretation: Negative Depression Screening Done: Yes 03890 - PHQ-9 Billing: Yes Source: Developed by Drs. Vijay Sutton, Nicole Frey, Oz Grove and colleagues, with an educational rich from [employer]. Thrive Questionnaire Date Thrive assessed: 07/09/24 I am a: Patient What is your living situation today?: I have a steady place to live Within the past 12 months, did the food you bought not last and you didn't have the money to get more?: Never true Within the past 12 months, did you worry whether your food would run out before you got money to buy more?: Never true Do you have trouble paying for medicines?: No Do you have trouble getting transportation to medical appointments?: No Do you have trouble paying your heating and electricity bill?: No Do you have trouble taking care of your child, family member or friend?: No Do you have trouble with day-to-day activities such as bathing, preparing meals, shopping, managing finances, etc.?: No Are you currently unemployed and looking for a job?: No Are you interested in more education?: No Please select the resources that you would like help with: None Currently or been in a relationship where the following occur: No concerns reported THRIVE Score: 0 AUDIT C Alcohol Use Questionnaire (AUDIT-C) 1. How often do you have a drink containing alcohol?: 2-4 times a month 2. How many drinks containing alcohol do you have on a typical day when you are drinking?: 1 or 2 3. How often do you have six or more drinks on one occasion?: Never Total Score: 2 Score Reviewed/Action Taken: Yes TANIA-7 AMB Questionnaire TANIA-7 Date TANIA - 7 assessed: 07/09/24 Feeling nervous, anxious, or on edge: 1 = Several days Not being able to stop or control worryin = Several days Worrying too much about different things: 2 = More than half the days Trouble relaxin = More than half the days Being so restless that it is hard to sit still: 2 = More than half the days Becoming easily annoyed or irritable: 2 = More than half the days Feeling afraid as if something awful might happen: 2 = More than half the days Total TANIA-7 score (0-4 normal; 5-9 mild; 10-14 moderate; 15-21 severe): 12 Source: Developed by Drs. Vijay Sutton, Nicole Frey, [place] and colleagues, with an educational rich from [employer]. TANIA-7 Assessment Billing TANIA-7 Assessment Tool: TANIA-7 Assessment 86152 Physical exam (Primary Care) Vital Signs: Last Vital Signs Temp 98.1 F 07/09/24 14:52 Pulse 72 07/09/24 14:52 BP 136/78 07/09/24 14:52 Pulse Ox 98 07/09/24 14:52 Oxygen Delivery Method Room Air 07/09/24 14:52 BMI result Body Mass Index 29.3 Tobacco/Smoking Status: Tobacco use Status Tobacco use date assessed 07/09/24 07/09/24 14:56 Patient Tobacco Use Status Former Tobacco user 07/09/24 14:56 Tobacco use type Cigarette 07/09/24 14:56 e-Cigarette/Vaping Use Never Used 07/09/24 14:56 PHQ-9: PHQ-9 Score PHQ-9: Total score 4 07/09/24 14:56 Depression Screening Interpretation: Negative Thrive Assessment: Date of Thrive Assessment Date Thrive assessed 07/09/24 07/09/24 14:56 Currently or been in a relationship where the following occur: No concerns reported Coding Level of Care Code Est Pt Level 4 (79556) Diagnoses Essential hypertension I10 Other and unspecified hyperlipidemia E78.5 Chronic GERD K21.9 Lipid disorder E78.9 Anxiety, generalized F41.1 Impaired fasting blood sugar R73.01 Additional Codes TANIA-7 Assessment Billing - TANIA-7 Assessment Tool: TANIA-7 Assessment 51260 ([id number]) PHQ-9 - 03253 - PHQ-9 Billing: Yes ([id number]) Assessment & Plan Assessment & Plan (1) Essential hypertension: Code(s): I10 - Essential (primary) hypertension Category: Medical (2) Other and unspecified hyperlipidemia: Code(s): E78.5 - Hyperlipidemia, unspecified Category: Medical (3) Chronic GERD: Code(s): K21.9 - Gastro-esophageal reflux disease without esophagitis Category: Medical (4) Lipid disorder: Code(s): E78.9 - Disorder of lipoprotein metabolism, unspecified Category: Medical (5) Anxiety, generalized: Code(s): F41.1 - Generalized anxiety disorder Category: Medical (6) Impaired fasting blood sugar: Code(s): R73.01 - Impaired fasting glucose Category: Medical Plan History - bulleted - The patient is a 59 year old female presenting for a regular follow-up appointment and medication review. - Prediabetes: Discussed current status; fasting glucose slightly elevated at 101 mg/dL, previously noted impaired fasting glucose; emphasized diet management with already adopting similar measures; family history negative for diabetes; will monitor with future labs. - Hyperlipidemia: Managed with atorvastatin and ezetimibe. Follow-up with cholesterol management is ongoing. - Essential Hypertension: Current medication includes metoprolol and amlodipine. Blood pressure considered stable. - Anxiety and Depression: Currently managed with lorazepam and sertraline. - Gastroesophageal Reflux Disease: Treated with omeprazole. Management is stable. - Constipation: Previously managed with docusate and fiber laxatives. Resolved. - Weight Management: Reports difficulty in losing weight despite a 1200-calorie diet and following Mediterranean diet plan. Regular gym visits noted with exercise involving biking. Problem List - Prediabetes - Essential Hypertension - Hyperlipidemia - Constipation (resolved) - Anxiety - Gastroesophageal Reflux Disease - Depression - Overweight Medications - Atorvastatin for hyperlipidemia - Ezetimibe (Zetia) for hyperlipidemia, prescribed by process control board operator Dr. White - Lorazepam for anxiety - Metoprolol for cardiovascular conditions - Nifedipine 60 mg for hypertension - Omeprazole 20 mg for gastroesophageal reflux disease - Sertraline 100 mg for depression - Aspirin for cardiovascular risk reduction Diagnostic results - Labs: - Complete Blood Count (CBC): Normal, no anemia - Electrolytes: Normal - Kidney function: Normal - Fasting glucose: 101 mg/dL - Liver enzymes: Normal - Cholesterol levels: Good [place] of Care - Cardiology: Follow-up appointment with Dr. White on October 31 Patient Instructions - Continue current medication regimen - Adhere to a diet that minimizes sweets and white flour products - Monitor upcoming lab results, repeat labs before next visit - Next follow-up appointment scheduled for October 08 - Follow-up with cardiology on October 31 - Follow dietary recommendations focusing on balanced meals, including increased vegetables, proteins, and reducing carbohydrate intake. Medications: Refilled nifedipine ER 60 mg PO DAILY 90 days 90 tabs 0RF lorazepam 0.5 mg PO DAILY 30 days PRN 30 tabs 2RF anxiety F41.1 - Generalized anxiety disorder omeprazole 20 mg PO BID 90 days 180 caps 0RF K21.9 - Gastro-esophageal reflux disease without esophagitis
--- OUTSIDE RECORDS SUMMARY | 2024-07-09 17:42 | XMS_ITS | Patient Health Record ---
Author Organization [facility] Address [address] [place] [address] Care Team Providers Care School Bus Dispatcher Name Role Phone Debbi Evangelista Unavailable [phone] Reason For Referral No Information Medications Medication SIG (Take, Route, Frequency, Duration) Notes Start Date End Date Status Norethindrone Acetate 5MG 1 [place]3 [facility] [place] Active Sertraline HCl 50MG [place]AL for [place]3 [facility] [place]/27/2013 Active Simvastatin 20MG ORAL for -3 [facility] [place] 11/27/2013 Active hydroCHLOROthiazide 12.5MG ORAL for -3 [facility] [place] 11/27/2013 Active Metoprolol Succinate ER 200MG ORAL for -3 [facility] [place] 11/28/19 14 Active Problems Problem Type SNOMED Code ICD Code Onset Dates Problem Status W/U Status Risk Notes Problem Hyperlipidemia (59670682) Other and unspecified hyperlipidemia (272.4) Active confirmed Major Problem Benign essential hypertension (0471360) Essential hypertension, benign (401.1) Active confirmed Major Problem Gynecological examination normal (383848846147374) Routine gynecological examination (V72.31) Active confirmed Major Problem Screening for malignant neoplasm of colon (840207930) Special screening for malignant neoplasms, colon (V76.51) Active confirmed Major Plan Of Treatment No Information Insurance Providers Payer Name Payer Address Payer Phone Subscriber Number Group Number Insured Name Patient Relationship to Insured Coverage Start Date Coverage End Date [employer] [place] [address] [place] [address] [id number] NOEMI BARAJAS Self - patient is the insured
== END 2024-07-09 15:22 | disposition home or self-care (01) ==
LOC: HO.HMCC 14:51
PROVIDERS: PCP Internal Medicine; Visit Provider Internal Medicine
DX: I10 Essential (primary) hypertension (principal); E78.5 Hyperlipidemia, unspecified; K21.9 Gastro-esophageal reflux disease without esophagitis; E78.9 Disorder of lipoprotein metabolism, unspecified; F41.1 Generalized anxiety disorder; R73.01 Impaired fasting glucose

== ENCOUNTER → 2024-07-09 14:50 | Outpatient (BNVA) | payer BC, SELFPAY | PROVIDERS: PCP Internal Medicine; Visit Provider Internal Medicine | DX: I10 Essential (primary) hypertension (principal); E78.5 Hyperlipidemia, unspecified; K21.9 Gastro-esophageal reflux disease without esophagitis; E78.9 Disorder of lipoprotein metabolism, unspecified; F41.1 Generalized anxiety disorder; R73.01 Impaired fasting glucose; Z79.899 Other long term (current) drug therapy | CPT/HCPCS: 96127 ==

== ENCOUNTER 2024-07-17 09:00 | Outpatient (REF) | payer BC, SELFPAY ==
[2024-07-17 11:40] LABS: Influenza A PCR NEGATIVE (Negative); Influenza B PCR NEGATIVE (Negative); Resp Syncy Virus RNA Qual PCR NEGATIVE (Negative); SARS COV2 PCR INHOUSE NEGATIVE (Negative)
== END 2024-07-17 09:01 | disposition home or self-care (01) ==
LOC: HO.LAB 09:00
PROVIDERS: Physician Assistant; PCP Internal Medicine
DX: J06.9 Acute upper respiratory infection, unspecified (principal); R09.89 Other specified symptoms and signs involving the circulatory and respiratory systems
CPT/HCPCS: 0241U

== ENCOUNTER 2024-07-17 09:00 | Outpatient (AMB) | payer BC, SELFPAY ==
--- NOTE | 2024-07-17 09:01 | MHC.OFFWIV ---
Intake Vital Signs 07/17/24 09:02 Weight 179 lb BP 120/80 Blood Pressure Location Lt brachial Position Sitting Pulse 66 Pulse Source Pulse Oximeter Temp 98.2 F Temp Source Oral Pulse Oximetry (%) 99 Oxygen Delivery Method Room Air Intake Visit Reasons: EP Chest cold, ear pain Intake Note: Patient here for chest congestion, cough and ear pain that has been present for about 3 days. Patient Tobacco Use Status: Former Tobacco user Allergies No Known Allergies Allergy (Verified 07/17/24 09:03) Do you need a note to return to daycare/school/sports/work: No HPI HPI Comments History of Present Illness Details History - The patient is a 59-year-old female presenting with an acute cough. - The cough has persisted for three days and is notably worse at night, affecting sleep. - There are no other respiratory symptoms such as a runny nose, shortness of breath, wheezing, or sinus pain. - The patient has no fever, headache, or fatigue or sinus pain. - The patient reports ear discomfort, with one ear exhibiting fluid presence, but no signs of infection. - Denies having a history of seasonal allergies and does not take allergy medication regularly. - Currently treated for essential hypertension, so used Coricedan OTC with minimal relief. Physical Exam General: Cooperative, healthy appearing, comfortable and no acute distress Orientation/consciousness: Patient oriented x3 Limitations: No limitations Head: Normal to inspection Ears: Hearing grossly normal bilaterally, external ears normal and TM's with fluid on right, normal left TM Nose: Normal external nose present, Normal nares present and No nasal discharge present Face and sinus: Normal facial exam and Yes sinuses nontender Mouth: Normal oral and palatal mucosa present and moist mucous membranes Throat: Yes tonsils normal, Yes uvula midline. Posterior oropharynx erythema Eyes: Appearance normal, both eyes and all related structures Neck: Normal visual inspection Respiratory: Clear to auscultation bilaterally. Normal respiratory effort, able to speak in complete sentences, no respiratory distress, not tachypneic, no tripod positioning and no use of accessory muscles Cardiovascular: Regular rate and rhythm. Normal S1 and S2 Skin: No rashes or lesions noted Neuro: Patient oriented x3 Extremities: Normal to inspection and Yes no clubbing, cyanosis or edema [facility] Medical History Hyperlipidemia GERD (gastroesophageal reflux disease) On beta hina at home Anxiety Dysphagia Smoking Other and unspecified hyperlipidemia Essential hypertension Atherosclerotic cardiovascular disease Surgical History History of esophagogastroduodenoscopy (EGD) H/O heart artery stent History of colonoscopy Status post lumbar microdiscectomy Family History Father Crohn's disease Colon cancer, Onset Age: 70 Mother No problems noted. Maternal Grandmother Unknown family medical history Maternal Grandfather Unknown family medical history Paternal Grandmother Unknown family medical history Brother Substance use disorder Brother No problems noted. Sister No problems noted. Sister No problems noted. Sister No problems noted. Son No problems noted. Daughter No problems noted. 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 The plan involves viral testing for flu, COVID-19, and RSV to identify any potential underlying infections causing the cough. Until test results are available, the patient should continue using Coricedan for congestion and start nighttime use of benzonatate to alleviate the cough and improve sleep quality. An allergy medication is suggested for daily use to address potential allergy-related symptoms. Benzonatate was prescribed and sent to the patient?s pharmacy, [facility], for immediate access. It is important to monitor the test results and adjust the treatment plan as necessary based on findings and symptom progression. Patient was informed and verbally consented to the use of an ambient scribe for clinic note documentation during this visit Orders: Orders SARS-CoV2/FLU/RSV Today R09.89 - Other specified symptoms and signs involving the circulatory and respiratory systems Medications: New benzonatate 200 mg PO BEDTIME PRN 10 caps 0RF cough Coding Level of Care Code Est Pt Level 3 (06161) Diagnoses URI, acute J06.9
[2024-07-17 09:02] VITALS: BP 120/80; PULSE 66; TEMP 36.8; O2SAT 99
--- OUTSIDE RECORDS SUMMARY | 2024-07-17 09:27 | XMS_ITS | Patient Health Record ---
Author Organization [facility] Address [address] [place] [address] Care Team Providers Care Mailroom Associate Name Role Phone Debbi Evangelista Unavailable [phone] Reason For Referral No Information Medications Medication SIG (Take, Route, Frequency, Duration) Notes Start Date End Date Status Norethindrone Acetate 5MG 1 ORAL daily for -3 [facility] [place] 11[place]09 Active Sertraline HCl 50MG ORAL for -3 [facility] [place] 11/27/2013 Active Simvastatin 20MG ORAL for -3 [facility] [place] 11/27/2013 Active hydroCHLOROthiazide 12.5MG ORAL for -3 [facility] [place] 11/27/2013 Active Metoprolol Succinate ER 200MG ORAL for -3 [facility] [place] 11/28/19 14 Active Problems Problem Type SNOMED Code ICD Code Onset Dates Problem Status W/U Status Risk Notes Problem Hyperlipidemia (20826670) Other and unspecified hyperlipidemia (272.4) Active confirmed Major Problem Benign essential hypertension (7028960) Essential hypertension, benign (401.1) Active confirmed Major Problem Gynecological examination normal (833953803524670) Routine gynecological examination (V72.31) Active confirmed Major Problem Screening for malignant neoplasm of colon (543954028) Special screening for malignant neoplasms, colon (V76.51) Active confirmed Major Plan Of Treatment No Information Insurance Providers Payer Name Payer Address Payer Phone Subscriber Number Group Number Insured Name Patient Relationship to Insured Coverage Start Date Coverage End Date [employer] [place] [address] [place] [address] [id number] NOEMI BARAJAS Self - patient is the insured
== END 2024-07-17 09:22 | disposition home or self-care (01) ==
PROVIDERS: PCP Internal Medicine; Visit Provider Physician Assistant
DX: J06.9 Acute upper respiratory infection, unspecified (principal)

== ENCOUNTER 2024-08-15 08:08 | Outpatient (REF) | payer BC, SELFPAY ==
--- NOTE | ~2024-08-15 | XR_ITS ---
EXAMINATION: XR CHEST 2 VIEWS HISTORY: R05.2 - Subacute cough COMPARISON: Comparison is made with the prior examination dated 05/14/2020. FINDINGS: PA and lateral views of the chest are submitted. The lungs are expanded and clear. There is no pleural effusion, pneumothorax, or pulmonary vascular congestion. The heart is normal in size. There is dextroscoliosis and degenerative disc disease of the spine. XR/XR chest 2V IMPRESSION: No acute cardiopulmonary abnormality. Electronically signed by: Vijay Zimmerman MD 08/15/2024 09:01 AM EDT
== END 2024-08-15 08:09 | disposition home or self-care (01) ==
LOC: HO.HMGCX 08:08
PROVIDERS: PCP Internal Medicine; Visit Provider Nurse Practitioner Family
DX: R05.2 Subacute cough (principal)
CPT/HCPCS: 71046

== ENCOUNTER 2024-08-15 08:08 | Outpatient (AMB) | payer BC, SELFPAY ==
--- NOTE | 2024-08-15 08:08 | AM.OFFWIN_ITS ---
Intake Vital Signs 08/15/24 08:09 Weight 179 lb BP 130/92 H Blood Pressure Location Lt brachial Position Sitting Pulse 56 Pulse Source Pulse Oximeter Temp 97.7 F Temp Source Oral Pulse Oximetry (%) 98 Oxygen Delivery Method Room Air Intake Visit Reasons: EP cough Intake Note: Patient here for cough and SOB that has been present for about 4-5 weeks. Patient Tobacco Use Status: Former Tobacco user Allergies No Known Allergies Allergy (Verified 07/17/24 09:03) Do you need a note to return to daycare/school/sports/work: No HPI HPI Comments History of Present Illness Details 59 y/o Female patient who presents to [facility] walk in clinic with c/o Dry cough and SOB for 4-5 weeks. She was seen here 07/16 for similar concern and SARs was negative. She was given Cough medicine with no relief. Denies any other symptoms. [facility] Medical History (Updated 08/15/24 @ 08:42 by Meena Morales NP) Cough Hyperlipidemia GERD (gastroesophageal reflux disease) On beta hina at home Anxiety Dysphagia Smoking Other and unspecified hyperlipidemia Essential hypertension Atherosclerotic cardiovascular disease Surgical History History of esophagogastroduodenoscopy (EGD) H/O heart artery stent History of colonoscopy Status post lumbar microdiscectomy Family History Father Crohn's disease Colon cancer, Onset Age: 70 Mother No problems noted. Maternal Grandmother Unknown family medical history Maternal Grandfather Unknown family medical history Paternal Grandmother Unknown family medical history Brother Substance use disorder Brother No problems noted. Sister No problems noted. Sister No problems noted. Sister No problems noted. Son No problems noted. Daughter No problems noted. Social History Household Members: Spouse Housing: House Alcohol intake: current Alcohol intake frequency: holidays/special occasions only Patient Tobacco Use Status: Former Tobacco user Tobacco use type: Cigarette e-Cigarette/Vaping Use: Never Used service: No Current occupational status: employed Current occupation: [employer] Cognitive needs: No Hearing needs: No Vision needs: No Review of Systems Const All systems reviewed & are unremarkable except as noted in HPI and below Physical Exam Vital Signs: Last Vital Signs Temp 97.7 F 08/15/24 08:09 Pulse 56 08/15/24 08:09 BP 130/92 H 08/15/24 08:09 Pulse Ox 98 08/15/24 08:09 Oxygen Delivery Method Room Air 08/15/24 08:09 Const General: no acute distress Nutritional Appearance: obese Orientation/consciousness: patient oriented x3 HEENT Head: Yes normocephalic Ears: external ears normal and TM's normal bilaterally General nose exam: No nasal discharge present Face and sinus: Yes sinuses nontender Mouth: moist mucous membranes Throat: Yes uvula midline Resp Effort & Inspection: normal respiratory effort and able to speak in complete sentences Auscultation: clear to auscultation bilaterally, no crackles, no rales, no rhonchi and no wheezes Cardio Rhythm: regular rhythm Heart sounds: S1 normal heart sound present and S2 normal heart sound present Neuro General: patient oriented x3 Assessment & Plan Assessment & Plan (1) Cough: Code(s): R05.9 - Cough, unspecified Qualifiers: Cough type: subacute Qualified Code(s): R05.2 - Subacute cough Plan: Ordered Chest Xray. Ordered Z-pack. Orders: Orders XR chest 2V Today R05.2 - Subacute cough Medications: New azithromycin 500 mg PO DAILY 3 tabs 0RF 3 days R05.2 - Subacute cough Coding Level of Care Code Est Pt Level 4 (23298) Diagnoses Subacute cough R05.2 Cough type: subacute Time Spent (min) 20
[2024-08-15 08:09] VITALS: BP 130/92; PULSE 56; TEMP 36.5; O2SAT 98
--- OUTSIDE RECORDS SUMMARY | 2024-08-15 08:22 | XMS_ITS | Patient Health Record ---
Author Organization [facility] Address [address] [place] [address] Care Team Providers Care Individual Pension Consultant Name Role Phone Debbi Evangelista Unavailable [phone] Reason For Referral No Information Medications Medication SIG (Take, Route, Frequency, Duration) Notes Start Date End Date Status Norethindrone Acetate 5MG 1 [place]3 [facility] [place]09 Active Sertraline HCl 50MG [place]AL for [place]3 [facility] [place]/27/2013 Active Simvastatin 20MG [place]AL for -3 [facility] [place] 11/27/2013 Active hydroCHLOROthiazide 12.5MG ORAL for -3 [facility] [place] 11/27/2013 Active Metoprolol Succinate ER 200MG ORAL for -3 [facility] [place] 11/28/19 14 Active Problems Problem Type SNOMED Code ICD Code Onset Dates Problem Status W/U Status Risk Notes Problem Hyperlipidemia (03448572) Other and unspecified hyperlipidemia (272.4) Active confirmed Major Problem Benign essential hypertension (2208589) Essential hypertension, benign (401.1) Active confirmed Major Problem Gynecological examination normal (423480834910193) Routine gynecological examination (V72.31) Active confirmed Major Problem Screening for malignant neoplasm of colon (464060763) Special screening for malignant neoplasms, colon (V76.51) Active confirmed Major Plan Of Treatment No Information Insurance Providers Payer Name Payer Address Payer Phone Subscriber Number Group Number Insured Name Patient Relationship to Insured Coverage Start Date Coverage End Date [employer] [place] [address] [place] [address] [id number] NOEMI BARAJAS Self - patient is the insured
== END 2024-08-15 08:42 | disposition home or self-care (01) ==
PROVIDERS: PCP Internal Medicine; Visit Provider Nurse Practitioner Family
DX: R05.2 Subacute cough (principal)

== ENCOUNTER → 2024-08-15 08:46 | Outpatient (BNV) | payer BC, SELFPAY | PROVIDERS: PCP Internal Medicine; Visit Provider Radiology Diagnostic Radiology | DX: R05.2 Subacute cough (principal) | CPT/HCPCS: 71046 ==

== ENCOUNTER 2024-10-08 14:56 | Outpatient (AMB) | payer BC, SELFPAY ==
[2024-10-08 15:02] VITALS: BP 135/80; PULSE 73; TEMP 37; O2SAT 97; BMI 30.2
--- NOTE | 2024-10-08 15:02 | A.OFFPC_ITS ---
Vital Signs 10/08/24 15:02 Height 5 ft 6 in Weight 187 lb 2 oz BMI 30.2 BP 135/80 Pulse 73 Pulse Source Pulse Oximeter Temp 98.6 F Temp Source Oral Pulse Oximetry (%) 97 Oxygen Delivery Method Room Air Intake Visit Reasons: 6m follow up Checkroom Attendant Required: No Is last menstrual period known: No Post menopausal: Yes Patient : No Allergies No Known Allergies Allergy (Verified 07/17/24 09:03) Medication List - Last Reconciled 10/08/24 by Duglas Nugent MD aspirin (Adult Aspirin Regimen) 81 mg PO DAILY atorvastatin 80 mg PO BEDTIME azithromycin 500 mg PO DAILY 3 days ezetimibe 10 mg PO DAILY lorazepam 0.5 mg PO DAILY PRN 30 days metoprolol succinate ER 200 mg PO DAILY 90 days nifedipine ER 60 mg PO DAILY 90 days omeprazole 20 mg PO BID 90 days sertraline 100 mg PO DAILY 90 days Tobacco use date assessed: 10/08/24 Dental Screening Dental Screen Date: 10/08/24 Did you have a dental visit in the last 12 months?: No Did you have a dental problem in the last 6 months where you did not have access to dental care?: No Was dental information given to patient?: Patient has dentist HPI 6m follow up HPI Details Follow-up appointment - The patient is a 59-year-old female pr esenting with severe aching pain in both legs. - The pain is described as an intense ac he, primarily below the knees, and is present all the time, worsening when lying down or sleeping. - The patient reports that the pain is s o severe at times that it induces tears. - She has tried Tylenol, which provides minimal relief. - There is no history of significant babar icose veins, although small ones are present. - The patient has not had any knee x-ray s previously. - She is currently taking atorvastatin, Zetia, lorazepam, metoprolol, nifedipi ne, omeprazole, and sertraline. - Recent blood tests in May showed normal CBC and metabolic profile. - The patient has a history of osteoarth ritis, with symptoms including joint wear and tear, and small bumps indicative of the condition. Problem List - Prediabetes - Essential Hypertension - Hyperlipidemia - Constipation (resolved) - Anxiety - Gastroesophageal Reflux Disease - Depression - obesity - throbbing both legs below-knee - superficial varicosities Patient Instructions - Take one Advil at bedtime or with supp er to help relieve leg pain. If tolerated - Avoid Aleve if it causes swelling or h eartburn. - Await notification for scheduling an u ltrasound of varicose veins and x-ray of knees. - Plan for a fasting blood test appointm ent in January. - under new medications Review of Systems - General: No fever no chills - Neurological: No headaches no dizziness - Ear nose throat: No sore throat no hearing difficulty no ear pain - Cardiovascular: No syncope, no chest pain, no palpitations - Gastrointestinal: No nausea vomiting or diarrhea - Endocrine: No polyuria polydipsia no heat intolerance - Genitourinary: No dysuria , no blood in urine Physical Exam General: No acute distress HEENT: No acute findings Neck: Supple Respiratory system: Lungs are clear Cardiovascular: S1-S2 regular in rate and rhythm Gastrointestinal: No pain Extremities: Superficial Varicose veins present, pain and throbbing below knees CUSTOMER RESOLUTION SPECIALIST: Alert awake oriented x3 motor sensory intact Skin: Normal turgor PFSH Medical History Cough Hyperlipidemia GERD (gastroesophageal reflux disease) On beta hina at home Anxiety Dysphagia Smoking Other and unspecified hyperlipidemia Essential hypertension Atherosclerotic cardiovascular disease Surgical History History of esophagogastroduodenoscopy (EGD) H/O heart artery stent History of colonoscopy Status post lumbar microdiscectomy Family History Father Crohn's disease Colon cancer, Onset Age: 70 Mother No problems noted. Maternal Grandmother Unknown family medical history Maternal Grandfather Unknown family medical history Paternal Grandmother Unknown family medical history Brother Substance use disorder Brother No problems noted. Sister No problems noted. Sister No problems noted. Sister No problems noted. Son No problems noted. Daughter No problems noted. Social History Household Members: Spouse Housing: House Alcohol intake: current Alcohol intake frequency: holidays/special occasions only Patient Tobacco Use Status: Former Tobacco user Tobacco use type: Cigarette e-Cigarette/Vaping Use: Never Used Patient : No service: No Current occupational status: retired Current occupation: [employer] Current occupational exposures/hazards: No Cognitive needs: No Hearing needs: No Vision needs: No Questionnaire PHQ-9 Over the last 2 weeks, how often have you been bothered by any of the following problems? 1. Little interest or pleasure in doing things: not at all 2. Feeling down, depressed, or hopeless: not at all 3. Trouble falling or staying asleep, or sleeping too much: several days 4. Feeling tired or having little energy: several days 5. Poor appetite or overeating: not at all 6. Feeling bad about yourself - or that you are a failure or have let yourself or your family down: several days 7. Trouble concentrating on things, such as reading the newspaper or watching television: several days 8. Moving or speaking so slowly that other people could have noticed. Or the opposite - being so fidgety or restless that you have been moving around a lot more than usual: not at all 9. Thoughts that you would be better off or of hurting yourself in some way: not at all Total score: 4 Depression Screening Interpretation: Negative Depression Screening Done: Yes 55761 - PHQ-9 Billing: Yes Source: Developed by Drs. Vijay Sutton, Nicole Frey, Oz [place] and colleagues, with an educational rich from [employer]. Thrive Questionnaire Date Thrive assessed: 10/08/24 I am a: Patient What is your living situation today?: I have a steady place to live Within the past 12 months, did the food you bought not last and you didn't have the money to get more?: Never true Within the past 12 months, did you worry whether your food would run out before you got money to buy more?: Never true Do you have trouble paying for medicines?: No Do you have trouble getting transportation to medical appointments?: No Do you have trouble paying your heating and electricity bill?: No Do you have trouble taking care of your child, family member or friend?: No Do you have trouble with day-to-day activities such as bathing, preparing meals, shopping, managing finances, etc.?: No Are you currently unemployed and looking for a job?: No Are you interested in more education?: No Please select the resources that you would like help with: None Currently or been in a relationship where the following occur: No concerns reported THRIVE Score: 0 AUDIT C Alcohol Use Questionnaire (AUDIT-C) 1. How often do you have a drink containing alcohol?: 2-4 times a month 2. How many drinks containing alcohol do you have on a typical day when you are drinking?: 1 or 2 3. How often do you have six or more drinks on one occasion?: Never Total Score: 2 Score Reviewed/Action Taken: Yes TANIA-7 AMB Questionnaire TANIA-7 Date TANIA - 7 assessed: 07/09/24 Source: Developed by Drs. Vijay Sutton, Nicole Frey, [place] and colleagues, with an educational rich from [employer]. Physical exam (Primary Care) Vital Signs: Last Vital Signs Temp 98.6 F 10/08/24 15:02 Pulse 73 10/08/24 15:02 BP 135/80 10/08/24 15:02 Pulse Ox 97 10/08/24 15:02 Oxygen Delivery Method Room Air 10/08/24 15:02 BMI result Body Mass Index 30.2 Tobacco/Smoking Status: Tobacco use Status Tobacco use date assessed 10/08/24 10/08/24 15:08 Patient Tobacco Use Status Former Tobacco user 10/08/24 15:08 Tobacco use type Cigarette 10/08/24 15:08 e-Cigarette/Vaping Use Never Used 10/08/24 15:08 PHQ-9: PHQ-9 Score PHQ-9: Total score 4 10/08/24 15:21 Depression Screening Interpretation: Negative Thrive Assessment: Date of Thrive Assessment Date Thrive assessed 10/08/24 10/08/24 15:08 Currently or been in a relationship where the following occur: No concerns reported Coding Level of Care Code Est Pt Level 4 (12714) Diagnoses Bilateral leg pain M79.604; M79.605 Hypertension, essential I10 Primary osteoarthritis of both knees M17.0 Osteoarthritis type: primary Varicose ulcer of lower extremity, unspecified laterality I83.009; L97.909 Laterality: unspecified laterality Anxiety, generalized F41.1 Lipid disorder E78.9 Impaired fasting blood sugar R73.01 Class 1 obesity due to excess calories with serious comorbidity and body mass index (BMI) of 30.0 to 30.9 in adult E66.09; Z68.30 Body mass index: BMI 30.0-30.9 Obesity classification: adult class 1 (BMI 30 - 34.9) Serious obesity comorbidity presence: with serious comorbidity Additional Codes PHQ-9 - 55722 - PHQ-9 Billing: Yes ([id number]) Assessment & Plan Assessment & Plan (1) Bilateral leg pain: Code(s): M79.604 - Pain in right leg; M79.605 - Pain in left leg Category: Medical (2) Hypertension, essential: Code(s): I10 - Essential (primary) hypertension Category: Medical (3) Osteoarthritis of knees, bilateral: Code(s): M17.0 - Bilateral primary osteoarthritis of knee Category: Medical Qualifiers: Osteoarthritis type: primary Qualified Code(s): M17.0 - Bilateral primary osteoarthritis of knee (4) Varicose ulcer (lower extremity): Code(s): I83.009 - Varicose veins of unspecified lower extremity with ulcer of unspecified site; L97.909 - Non-pressure chronic ulcer of unspecified part of unspecified lower leg with unspecified severity Category: Medical Qualifiers: Laterality: unspecified laterality Qualified Code(s): I83.009 - Varicose veins of unspecified lower extremity with ulcer of unspecified site; L97.909 - Non-pressure chronic ulcer of unspecified part of unspecified lower leg with unspecified severity (5) Anxiety, generalized: Code(s): F41.1 - Generalized anxiety disorder Category: Medical (6) Lipid disorder: Code(s): E78.9 - Disorder of lipoprotein metabolism, unspecified Category: Medical (7) Impaired fasting blood sugar: Code(s): R73.01 - Impaired fasting glucose Category: Medical (8) Obesity due to excess calories: Code(s): E66.09 - Other obesity due to excess calories Category: Medical Qualifiers: Body mass index: BMI 30.0-30.9 Obesity classification: adult class 1 (BMI 30 - 34.9) Serious obesity comorbidity presence: with serious comorbidity Qualified Code(s): E66.09 - Other obesity due to excess calories; Z68.30 - Body mass index [BMI] 30.0-30.9, adult (9) Osteoarthritis of knees, bilateral: Code(s): M17.0 - Bilateral primary osteoarthritis of knee Category: Medical Qualifiers: Osteoarthritis type: unspecified Qualified Code(s): M17.0 - Bilateral primary osteoarthritis of knee Plan Follow-up appointment - The patient is a 59-year-old female presenting with severe aching pain in both legs. - The pain is described as an intense ache, primarily below the knees, and is present all the time, worsening when lying down or sleeping. - The patient reports that the pain is so severe at times that it induces tears. - She has tried Tylenol, which provides minimal relief. - There is no history of significant varicose veins, although small ones are present. - The patient has not had any knee x-rays previously. - She is currently taking atorvastatin, Zetia, lorazepam, metoprolol, nifedipine, omeprazole, and sertraline. - Recent blood tests in May showed normal CBC and metabolic profile. - The patient has a history of osteoarthritis, with symptoms including joint wear and tear, and small bumps indicative of the condition. Problem List - Prediabetes - Essential Hypertension - Hyperlipidemia - Constipation (resolved) - Anxiety - Gastroesophageal Reflux Disease - Depression - obesity - throbbing both legs below-knee - superficial varicosities Patient Instructions - Take one Advil at bedtime or with supper to help relieve leg pain. If tolerated - Avoid Aleve if it causes swelling or heartburn. - Await notification for scheduling an ultrasound of varicose veins and x-ray of knees. - Plan for a fasting blood test appointment in January. - under new medications Orders: Orders Hemoglobin A1c Today E66.09 - Other obesity due to excess calories, E78.9 - Disorder of lipoprotein metabolism, unspecified, F41.1 - Generalized anxiety disorder, I10 - Essential (primary) hypertension, I25.10 - Atherosclerotic heart disease of [place] coronary artery without angina pectoris, M17.0 - Bilateral primary osteoarthritis of knee, M79.604 - Pain in right leg, M79.605 - Pain in left leg, R73.01 - Impaired fasting glucose, Z68.30 - Body mass index [BMI] 30.0-30.9, adult Complete Blood Count Auto Diff Today E66.09 - Other obesity due to excess calories, E78.9 - Disorder of lipoprotein metabolism, unspecified, F41.1 - Generalized anxiety disorder, I10 - Essential (primary) hypertension, I25.10 - Atherosclerotic heart disease of [place] coronary artery without angina pectoris, M17.0 - Bilateral primary osteoarthritis of knee, M79.604 - Pain in right leg, M79.605 - Pain in left leg, R73.01 - Impaired fasting glucose, Z68.30 - Body mass index [BMI] 30.0-30.9, adult Comprehensive [place]. Panel Fast Today E66.09 - Other obesity due to excess calories, E78.9 - Disorder of lipoprotein metabolism, unspecified, F41.1 - Generalized anxiety disorder, I10 - Essential (primary) hypertension, I25.10 - Atherosclerotic heart disease of [place] coronary artery without angina pectoris, M17.0 - Bilateral primary osteoarthritis of knee, M79.604 - Pain in right leg, M79.605 - Pain in left leg, R73.01 - Impaired fasting glucose, Z68.30 - Body mass index [BMI] 30.0-30.9, adult Vitamin D 25-OH (D2 and D3) Today E66.09 - Other obesity due to excess lis ories, E78.9 - Disorder of lipoprotein metabolism, unspecified, F41.1 - Generalized anxiety disorder, I10 - Essential (primary) hypertension, I25.10 - Atherosclerotic heart disease of [place] coronary artery without angina pectoris, M17.0 - Bilateral primary osteoarthritis of knee, M79.604 - Pain in right leg, M79.605 - Pain in left leg, R73.01 - Impaired fasting glucose, Z68.30 - Body mass index [BMI] 30.0-30.9, adult Vitamin B12 Today E66.09 - Other obesity due to excess calories, E78.9 - Disorder of lipoprotein metabolism, unspecified, F41.1 - Generalized anxiety d isorder, I10 - Essential (primary) hypertension, I25.10 - Atherosclerotic heart disease of [place] coronary artery without angina pectoris, M17.0 - Bilateral primary osteoarthritis of knee, M79.604 - Pain in right leg, M79.605 - Pain in left leg, R73.01 - Impaired fasting glucose, Z68.30 - Body mass index [BMI] 30.0-30.9, adult TSH reflex Free T4 Today E66.09 - Other obesity due to excess calories, E78.9 - Disorder of lipoprotein metabolism, unspecified, F41.1 - Generalized anxiety disorder, I10 - Essential (primary) hypertension, I25.10 - Atherosclerotic heart disease of [place] coronary artery without angina pectoris, M17.0 - Bilateral primary osteoarthritis of knee, M79.604 - Pain in right leg, M79.605 - Pain in left leg, R73.01 - Impaired fasting glucose, Z68.30 - Body mass index [BMI] 30.0-30.9, adult XR Knee Ronny 1or 2V Today M17.0 - Bilateral primary osteoarthritis of knee Lipid Panel Today E66.09 - Other obesity due to excess calories, E78.9 - Disorder of lipoprotein metabolism, unspecified, F41.1 - Generalized anxiety disorder, I10 - Essential (primary) hypertension, I25.10 - Atherosclerotic heart disease of [place] coronary artery without angina pectoris, M17.0 - Bilateral primary osteoarthritis of knee, M79.604 - Pain in right leg, M79.605 - Pain in left leg, R73.01 - Impaired fasting glucose, Z68.30 - Body mass index [BMI] 30.0-30.9, adult [place] venous insuf bilat Today I83.009 - Varicose veins of unspecified lower extremity with ulcer of unspecified site, L97.909 - Non-pressure chronic ulcer of unspecified part of unspecified lower leg with unspecified severity, M79.604 - Pain in right leg, M79.605 - Pain in left leg Medications: Refilled lorazepam 0.5 mg PO DAILY PRN 30 tabs 2RF anxiety 30 days F41.1 - Generalized anxiety disorder
--- OUTSIDE RECORDS SUMMARY | 2024-10-08 15:52 | XMS_ITS | Patient Health Record ---
Author Organization Total [employer] Address [address] [place] [address] Care Team Providers Care Commercial Glazier Name Role Phone Debbi Evangelista Unavailable [phone] Reason For Referral No Information Medications Medication SIG (Take, Route, Frequency, Duration) Notes Start Date End Date Status Norethindrone Acetate 5MG 1 ORAL daily; Duration: -3 [facility] 11/27/2013 Active Sertraline HCl 50MG ORAL; Duration: -3 [facility] 11/27/2013 Active Simvastatin 20MG ORAL; Duration: -3 [facility] 11/27/2013 Active hydroCHLOROthiazide 12.5MG ORAL; Duration: -3 [facility] 11/09 Active Metoprolol Succinate ER 200MG ORAL; Duration: -3 [facility] 0 11/27/2013 Active Problems Problem Type SNOMED Code ICD Code Onset Dates Problem Status W/U Status Risk Notes Problem Hyperlipidemia (91648966) Other and unspecified hyperlipidemia (272.4) Active confirmed Major Problem Benign essential hypertension (1719612) Essential hypertension, benign (401.1) Active confirmed Major Problem Gynecological examination normal (825476698504202) Routine gynecological examination (V72.31) Active confirmed Major Problem Screening for malignant neoplasm of colon (643086989) Special screening for malignant neoplasms, colon (V76.51) Active confirmed Major Plan Of Treatment No Information Insurance Providers Payer Name Payer Address Payer Phone Subscriber Number Group Number Insured Name Patient Relationship to Insured Coverage Start Date Coverage End Date [employer] [place] [address] [place] [address] [phone] [id number] NOEMI BARAJAS Self - patient is the insured
== END 2024-10-08 16:28 | disposition home or self-care (01) ==
LOC: HO.HMCC 14:56
PROVIDERS: PCP Internal Medicine; Visit Provider Internal Medicine
DX: M79.604 Pain in right leg (principal); I83.009 Varicose veins of unspecified lower extremity with ulcer of unspecified site; L97.909 Non-pressure chronic ulcer of unspecified part of unspecified lower leg with unspecified severity; M79.605 Pain in left leg; I10 Essential (primary) hypertension; M17.0 Bilateral primary osteoarthritis of knee; F41.1 Generalized anxiety disorder; E78.9 Disorder of lipoprotein metabolism, unspecified; R73.01 Impaired fasting glucose; E66.09 Other obesity due to excess calories; Z68.30 Body mass index [BMI] 30.0-30.9, adult

== ENCOUNTER → 2024-10-08 14:56 | Outpatient (BNVA) | payer BC, SELFPAY | PROVIDERS: PCP Internal Medicine; Visit Provider Internal Medicine | DX: I83.813 Varicose veins of bilateral lower extremities with pain (principal); I10 Essential (primary) hypertension; M17.0 Bilateral primary osteoarthritis of knee; F41.1 Generalized anxiety disorder; E78.9 Disorder of lipoprotein metabolism, unspecified; R73.01 Impaired fasting glucose; E66.09 Other obesity due to excess calories; Z68.30 Body mass index [BMI] 30.0-30.9, adult | CPT/HCPCS: 96127 ==

== ENCOUNTER 2024-10-14 13:29 | Outpatient (REF) | payer BC, SELFPAY ==
--- NOTE | ~2024-10-14 | XR_ITS ---
Exam: 2 view bilateral knees TECHNIQUE: AP and lateral view lower extremity joint INDICATION: M17.0 - Bilateral primary osteoarthritis of knee Prior: None FINDINGS: Right knee: There is no joint effusion. Joint spaces are preserved. There are subtle marginal osteophytes. Left knee: There is subtle medial narrowing of the medial joint space and small marginal osteophytes. There is no joint effusion. No other abnormalities are evident. XR/XR Knee Ronny 1or 2V IMPRESSION: Right knee: Near normal. Left knee: Minimal evidence of osteoarthritis. Electronically signed by: Ruddy Joshi MD 10/14/2024 01:54 PM EDT
--- OUTSIDE RECORDS SUMMARY | 2024-10-14 13:54 | XMS_ITS | Patient Health Record ---
Author Organization [facility] Address [address] [place] [address] Care Team Providers Care Screen Printing Machine Operator Name Role Phone Debbi Evangelista Unavailable [phone] Reason For Referral No Information Medications Medication [...] Problem Status W/U Status Risk Notes Problem Other and unspecified hyperlipidemia (272.4) Active confirmed Major Problem Benign essential hypertension (7867803) Essential hypertension, benign (401.1) Active confirmed Major Problem Gynecological examination normal (479569906558710) Routine gynecological examination (V72.31) Active confirmed Major Problem Screening for malignant neoplasm of colon (042502912) Special screening for malignant neoplasms, colon (V76.51) Active confirmed Major Plan Of Treatment No Information Insurance Providers Payer Name Payer Address Payer Phone Subscriber Number Group Number Insured Name Patient Relationship to Insured Coverage Start Date Coverage End Date [employer] [place] [address] [place] [address] [id number] NOEMI BARAJAS Self - patient is the insured
== END 2024-10-14 13:30 | disposition home or self-care (01) ==
LOC: HO.HMGCX 13:29
PROVIDERS: PCP Internal Medicine; Visit Provider Internal Medicine
DX: M17.0 Bilateral primary osteoarthritis of knee (principal)
CPT/HCPCS: 73560

== ENCOUNTER → 2024-10-14 13:32 | Outpatient (BNV) | payer BC, SELFPAY | PROVIDERS: PCP Internal Medicine; Visit Provider Radiology Diagnostic Radiology | DX: M17.0 Bilateral primary osteoarthritis of knee (principal) | CPT/HCPCS: 73560 ==

== ENCOUNTER 2024-10-24 09:17 | Outpatient (AMB) | payer BC, SELFPAY ==
--- OUTSIDE RECORDS SUMMARY | 2024-10-24 09:33 | XMS_ITS | Patient Health Record ---
Author Organization [facility] Address [address] [place] [address] Care Team Providers Care Strip Machine Operator Name Role Phone Debbi Evangelista Unavailable [phone] Reason For Referral No Information Medications Medication [...] Status W/U Status Risk Notes Problem Hyperlipidemia (41467157) Other and unspecified hyperlipidemia (272.4) Active confirmed Major Problem Benign essential hypertension (4207483) Essential hypertension, benign (401.1) Active confirmed Major Problem Gynecological examination normal (440198334859171) Routine gynecological examination (V72.31) Active confirmed Major Problem Special screenin g for malignant neoplasms, colon (V76.51) Active confirmed Major Plan Of Treatment No Information Insurance Providers Payer Name Payer Address Payer Phone Subscriber Number Group Number Insured Name Patient Relationship to Insured Coverage Start Date Coverage End Date [employer] [place] [address] [place] [address] [id number] NOEMI BARAJAS Self - patient is the insured
--- NOTE | 2024-10-24 09:44 | AM.OFFWIN_ITS ---
Intake Vital Signs 10/24/24 09:46 Height 5 ft 6 in Weight 189 lb BMI 30.5 BP 126/80 Blood Pressure Location Lt brachial Position Sitting Pulse 79 Pulse Source Pulse Oximeter Temp 98.2 F Temp Source Oral Pulse Oximetry (%) 96 Oxygen Delivery Method Room Air Intake Visit Reasons: EP Diarrhea since monday Intake Note: presents with diarrhea for 3 days Patient Tobacco Use Status: Former Tobacco user Allergies No Known Allergies Allergy (Verified 10/24/24 09:45) Do you need a note to return to daycare/school/sports/work: No HPI HPI Comments History of Present Illness Details 59 y/o Female patient who presents to [facility] walk in clinic with c/o diarrhea since Monday. Denies fevers, chills, nausea or vomiting. Denies any changes to her Diet or medications. She does though endorse eating at a restaurant Monday evening. She is the only one in the household with symptoms. [facility] Medical History (Updated 10/24/24 @ 10:34 by Meena Morales NP) Diarrhea Cough Hyperlipidemia GERD (gastroesophageal reflux disease) On beta hina at home Anxiety Dysphagia Smoking Other and unspecified hyperlipidemia Essential hypertension Atherosclerotic cardiovascular disease Surgical History History of esophagogastroduodenoscopy (EGD) H/O heart artery stent History of colonoscopy Status post lumbar microdiscectomy Family History Father Crohn's disease Colon cancer, Onset Age: 70 Mother No problems noted. Maternal Grandmother Unknown family medical history Maternal Grandfather Unknown family medical history Paternal Grandmother Unknown family medical history Brother Substance use disorder Brother No problems noted. Sister No problems noted. Sister No problems noted. Sister No problems noted. Son No problems noted. Daughter No problems noted. Social History Household Members: Spouse Housing: House Alcohol intake: current Alcohol intake frequency: holidays/special occasions only Patient Tobacco Use Status: Former Tobacco user Tobacco use type: Cigarette e-Cigarette/Vaping Use: Never Used service: No Current occupational status: retired Current occupation: [employer] Current occupational exposures/hazards: No Cognitive needs: No Hearing needs: No Vision needs: No Review of Systems Const All systems reviewed & are unremarkable except as noted in HPI and below Physical Exam Vital Signs: Last Vital Signs Temp 98.2 F 10/24/24 09:46 Pulse 79 10/24/24 09:46 BP 126/80 10/24/24 09:46 Pulse Ox 96 10/24/24 09:46 Oxygen Delivery Method Room Air 10/24/24 09:46 BMI result Body Mass Index 30.5 Const General: no acute distress Nutritional Appearance: obese Orientation/consciousness: patient oriented x3 GI Inspection: Yes obesity Palpation (GI): Soft to palpation, not firm, Tenderness to palpation present (GI), no guarding, not rigid and No hepatosplenomegaly present Auscultation: normal bowel sounds Rectal Exam - Female: deferred Neuro General: patient oriented x3, gait normal and moves all extremities Psych Speech and movement: Normal speech and movement present Assessment & Plan Assessment & Plan (1) Diarrhea: Code(s): R19.7 - Diarrhea, unspecified Qualifiers: Diarrhea type: unspecified type Qualified Code(s): R19.7 - Diarrhea, unspecified Plan: Ordered Reglan Hydrate well with warm fluids - Devorah Tea liquid diet for few days and advance slowly Avoid spicy greasy foods. Medications: New metoclopramide HCl (Reglan) 10 mg PO Q6H 20 tabs 0RF nausea and vomiting R19.7 - Diarrhea, unspecified Coding Level of Care Code Est Pt Level 4 (54958) Diagnoses Diarrhea, unspecified type R19.7 Diarrhea type: unspecified type Time Spent (min) 20
[2024-10-24 09:46] VITALS: BP 126/80; PULSE 79; TEMP 36.8; O2SAT 96; BMI 30.5
== END 2024-10-24 10:51 | disposition home or self-care (01) ==
PROVIDERS: PCP Internal Medicine; Visit Provider Nurse Practitioner Family
DX: R19.7 Diarrhea, unspecified (principal)

== ENCOUNTER 2024-10-31 09:48 | Outpatient (AMB) | payer BC, SELFPAY ==
--- NOTE | 2024-10-31 09:54 | A.OFFVIS_ITS ---
Vital Signs 10/31/24 09:55 Height 5 ft 6 in Weight 188 lb BMI 30.3 BP 122/60 Blood Pressure Location Lt brachial Position Sitting Pulse 55 Pulse Source Monitor Intake Visit Reasons: 1 yr follow up Allergies No Known Allergies Allergy (Verified 10/24/24 09:45) Medication List - Last Reconciled 10/31/24 by Judah White MD aspirin (Adult Aspirin Regimen) 81 mg PO DAILY atorvastatin 80 mg PO BEDTIME ezetimibe 10 mg PO DAILY lorazepam 0.5 mg PO DAILY PRN 30 days metoclopramide HCl (Reglan) 10 mg PO Q6H metoprolol succinate ER 200 mg PO DAILY 90 days nifedipine ER 60 mg PO DAILY 90 days omeprazole 20 mg PO BID 90 days sertraline 100 mg PO DAILY 90 days HPI Comments Details: August returns for follow-up of coronary artery disease. Multiple risk factors including hypertension, dyslipidemia, prior smoking. In 2020, she had chest pain treated as unstable angina. Subsequently, underwent cardiac c atheterization LAD stenting. Since that time, has not smoked. Improved her lifestyle significantly. Overall, she states she feels very well. No clear-cut cardiac symptoms. No angina. Has been having some leg pains and sees states that she is due to get ultrasound. This leg pain is more so during rest and not during activity and hence most likely not claudication. [facility] Medical History (Updated 10/24/24 @ 10:34 by Meena Morales NP) Diarrhea Cough Hyperlipidemia GERD (gastroesophageal reflux disease) On beta hina at home Anxiety Dysphagia Smoking Other and unspecified hyperlipidemia Essential hypertension Atherosclerotic cardiovascular disease Surgical History History of esophagogastroduodenoscopy (EGD) H/O heart artery stent History of colonoscopy Status post lumbar microdiscectomy Family History Father Crohn's disease Colon cancer, Onset Age: 70 Mother No problems noted. Maternal Grandmother Unknown family medical history Maternal Grandfather Unknown family medical history Paternal Grandmother Unknown family medical history Brother Substance use disorder Brother No problems noted. Sister No problems noted. Sister No problems noted. Sister No problems noted. Son No problems noted. Daughter No problems noted. Social History Household Members: Spouse Housing: House Alcohol intake: current Alcohol intake frequency: holidays/special occasions only Patient Tobacco Use Status: Former Tobacco user Tobacco use type: Cigarette e-Cigarette/Vaping Use: Never Used service: No Current occupational status: retired Current occupation: [employer] Current occupational exposures/hazards: No Cognitive needs: No Hearing needs: No Vision needs: No Review of Systems Const Denies weakness ENT Denies dizziness Card Denies chest pain, Denies chest pain with activity, Denies syncope, Denies rapid heart rate, Denies pedal edema, Denies edema, Denies leg edema, Denies lightheadedness, Denies palpitations, Denies dyspnea, Denies dyspnea on exertion and Denies orthopnea Resp Denies cough, Denies dyspnea and Denies dyspnea on exertion GI Denies hematochezia and Denies change in stool character Musc Denies abnormal gait, Denies muscle cramps, Denies muscle weakness, Denies numbness, Denies radiating pain into limb and Denies tingling Neuro Denies abnormal gait, Denies dizziness, Denies syncope, Denies numbness, Denies tingling and Denies weakness Endo Denies palpitations Physical Exam Vital Signs: Last Vital Signs Pulse 55 10/31/24 09:55 BP 122/60 10/31/24 09:55 BMI result Body Mass Index 30.3 Const General: comfortable and no acute distress Orientation/consciousness: patient oriented x3 HEENT Other: Unremarkable Head: Yes normal to inspection Neck Neck: Yes normal visual inspection Chest Chest palpation & inspection: normal inspection of the chest Resp Auscultation: clear to auscultation bilaterally Cardio Palpation: normal PMI Heart sounds: S1 normal heart sound present, S2 normal heart sound present, no gallops, no murmurs and no rubs GI Palpation (GI): Soft to palpation Back/Spine/Pelvis Other: unremarkable Skin General skin exam: no rashes or lesions noted Neuro General: patient oriented x3 Extrem General: Yes normal to inspection Psych Mental Status: mental status grossly normal Office Procedures EKG Details: EKG with sinus bradycardia, 55/Min; no ischemic findings; [place] [address]-[id number], Complete Assessment & Plan Assessment & Plan (1) Atherosclerotic cardiovascular disease: Code(s): I25.10 - Atherosclerotic heart disease of [place] coronary artery without angina pectoris Category: Medical Plan: Cardiac catheterization 2020-proximal and mid LAD stenosis status post PCI. No significant disease elsewhere. Long-term aspirin. She is also on high-dose beta-blockers, that has been long- term. Clinically stable with no angina. (2) Essential hypertension: Code(s): I10 - Essential (primary) hypertension Category: Medical Plan: Stable. No changes. (3) Other and unspecified hyperlipidemia: Code(s): E78.5 - Hyperlipidemia, unspecified Category: Medical Plan: She is on atorvastatin and Zetia. In the past, LDL as high as 192 mg/dL. Most recent LDL 78 mg/dL. Triglycerides 60 mg/dL. (4) Morbid obesity: Code(s): E66.01 - Morbid (severe) obesity due to excess calories Category: Medical Plan: Continue to lose weight. Plan Discussion Notes I discussed with the patient that her leg pain is unlikely due to vascular blockage, as it worsens during rest rather than activity. The patient is advised to continue her current medication regimen and weight management efforts. Patient was informed and verbally consented to the use of an ambient scribe for clinic note documentation during this visit. Patient Instructions: - Continue taking your current medications as prescribed. - Maintain efforts in managing your weight. - Report any significant changes in symptoms. Coding Level of Care Code Est Pt Level 4 (62299) Complex EM visit Add On G2211 Diagnoses Atherosclerotic cardiovascular disease I25.10 Essential hypertension I10 Other and unspecified hyperlipidemia E78.5 Morbid obesity E66.01 CPT Codes EKG - CPT: 04125-Ndshnosywuksmrxvd, Complete ([id number])
[2024-10-31 09:55] VITALS: BP 122/60; PULSE 55; BMI 30.3
--- OUTSIDE RECORDS SUMMARY | 2024-10-31 10:27 | XMS_ITS | Patient Health Record ---
Author Organization [facility] Address [address] [place] [address] Care Team Providers Care Acoustic Intelligence Specialist Name Role Phone Debbi Evangelista Unavailable [phone] Reason For Referral No Information Medications Medication [...] Active confirmed Major Problem Benign essential hypertension (8274027) Essential hypertension, benign (401.1) Active confirmed Major Problem Gynecological examination normal (225405423583436) Routine gynecological examination (V72.31) Active confirmed Major Problem Screening for malignant neoplasm of colon (479094208) Special screening for malignant neoplasms, colon (V76.51) Active confirmed Major Plan Of Treatment No Information Insurance Providers Payer Name Payer Address Payer Phone Subscriber Number Group Number Insured Name Patient Relationship to Insured Coverage Start Date Coverage End Date [employer] [place] [address] [place] [address] [id number] NOEMI BARAJAS Self - patient is the insured
== END 2024-10-31 10:13 | disposition home or self-care (01) ==
LOC: HO.HCS 09:49
PROVIDERS: PCP Internal Medicine; Visit Provider Internal Medicine
DX: I25.10 Atherosclerotic heart disease of native coronary artery without angina pectoris (principal); I10 Essential (primary) hypertension; E78.5 Hyperlipidemia, unspecified; E66.01 Morbid (severe) obesity due to excess calories
CPT/HCPCS: 93010; 99214

== ENCOUNTER → 2024-10-31 09:48 | Outpatient (BNVA) | payer BC, SELFPAY | PROVIDERS: PCP Internal Medicine; Visit Provider Internal Medicine | DX: I25.10 Atherosclerotic heart disease of native coronary artery without angina pectoris (principal); I10 Essential (primary) hypertension; E78.5 Hyperlipidemia, unspecified; E66.01 Morbid (severe) obesity due to excess calories; Z68.30 Body mass index [BMI] 30.0-30.9, adult; Z95.5 Presence of coronary angioplasty implant and graft | CPT/HCPCS: 93005 ==

== ENCOUNTER 2024-11-04 10:15 | Outpatient (REF) | payer BC, SELFPAY ==
--- NOTE | ~2024-11-04 | US_ITS ---
EXAMINATION: US LOWER EXTREMITY VENOUS (REFLUX EXAM), BILATERAL CLINICAL INFORMATION: Varices. COMPARISON: None. TECHNIQUE: Color flow triplex imaging and compression Doppler was performed to evaluate both the deep and the superficial systems bilaterally. To evaluate the superficial system, the examination was performed in the upright position. Color-flow Doppler ultrasound and compression ultrasound were utilized. In addition, maneuvers were utilized to demonstrate reflux. FINDINGS: 1. DEEP VENOUS ULTRASOUND OF THE RIGHT LOWER EXTREMITY: Common Femoral Vein: Compressible, normal respiratory variation and augmented flow. Femoral Vein: Compressible, normal color flow and augmentation. Popliteal Vein: Compressible, normal augmentation. Deep Reflux: There is no evidence of reflux in the deep system in either the common femoral vein, superficial femoral or the popliteal vein. There is no evidence of a Ponce's cyst. 2. SUPERFICIAL ULTRASOUND WITH DOPPLER OF RIGHT LOWER EXTREMITY: GREAT SAPHENOUS VEIN: Saphenofemoral Junction: 0.7 cm; Reflux: 0 ms Proximal Thigh: 0.4 cm; Reflux: 0 ms Mid Thigh: 0.3 cm; Reflux: 0 ms Distal Thigh: 0.3 cm; Reflux: 0 ms At Knee: 0.3 cm; Reflux: 0 ms Proximal Calf: 0.3 cm; Reflux: 0 ms Mid Calf: 0.2 cm; Reflux: 0 ms Distal Calf: 0.3 cm; Reflux: 0 ms DUPLICATED MEDIAL GREAT SAPHENOUS VEIN: Diameter: None imaged Reflux: NA DUPLICATED LATERAL GREAT SAPHENOUS VEIN: Diameter: 0.2 cm. Reflux: NA SMALL SAPHENOUS VEIN: Saphenopopliteal Junction: 0.2 cm; Reflux: 0 ms Proximal: 0.3 cm; Reflux: 0 ms Distal: 0.3 cm; Reflux: 0 ms VEIN OF GIACOMINI: Size: 0.2 cm. Reflux: NA PERFORATORS: Location: Mid calf. Size: 0.1-0.2 cm. Reflux: NA VARICOSITIES: Location: Mid calf. Size: 0.3 cm. Reflux: NA 3. DEEP VENOUS ULTRASOUND OF THE LEFT LOWER EXTREMITY: Common Femoral Vein: Compressible, normal respiratory variation and augmented flow. Femoral Vein: Compressible, normal color flow and augmentation. Popliteal Vein: Compressible, normal augmentation. Deep Reflux: There is no evidence of reflux in the deep system in either the common femoral vein, superficial femoral or the popliteal vein. There is no evidence of a Ponce's cyst. 4. SUPERFICIAL ULTRASOUND WITH DOPPLER OF LEFT LOWER EXTREMITY: GREAT SAPHENOUS VEIN: Saphenofemoral Junction: 0.7 cm; Reflux: 0 ms Proximal Thigh: 0.3 cm; Reflux: 0 ms Mid Thigh: 0.3 cm; Reflux: 0 ms Distal Thigh: 0.3 cm; Reflux: 0 ms At Knee: 0.3 cm; Reflux: 0 ms Proximal Calf: 0.2 cm; Reflux: 0 ms Mid Calf: 0.3 cm; Reflux: 0 ms Distal Calf: 0.3 cm; Reflux: 0 ms DUPLICATED MEDIAL GREAT SAPHENOUS VEIN: Diameter: None imaged Reflux: NA DUPLICATED LATERAL GREAT SAPHENOUS VEIN: Diameter: 0.3 cm. Reflux: NA SMALL SAPHENOUS VEIN: Saphenopopliteal Junction: 0.4 cm; Reflux: 0 ms Proximal: 0.3 cm; Reflux: 0 ms Distal: 0.2 cm; Reflux: 0 ms VEIN OF GIACOMINI: Size: 0.3 cm. Reflux: NA PERFORATORS: Location: Mid to distal thigh. Proximal to distal calf. Size: 0.2 cm. Reflux: NA VARICOSITIES: Location: None Imaged Size: NA Reflux: NA US/US venous insuf bilat IMPRESSION: Right: No venous insufficiency. Perforators and varices without reflux. Left: No venous insufficiency. Perforators without reflux. Electronically signed by: Alton Heath MD 11/04/2024 11:57 AM EDT
--- OUTSIDE RECORDS SUMMARY | 2024-11-04 11:19 | XMS_ITS | Patient Health Record ---
Author Organization [facility] Address [address] [place] [address] Care Team Providers Care House Director Name Role Phone Debbi Evangelista Unavailable [phone] Reason For Referral No Information Medications Medication [...] Status W/U Status Risk Notes Problem Hyperlipidemia (24382960) Other and unspecified hyperlipidemia (272.4) Active confirmed Major Problem Benign essential hypertension (1872700) Essential hypertension, benign (401.1) Active confirmed Major Problem Gynecological examination normal (888778104369253) Routine gynecological examination (V72.31) Active confirmed Major Problem Screening for malignant neoplasm of colon (777554502) Special screening for malignant neoplasms, colon (V76.51) Active confirmed Major Plan Of Treatment No Information Insurance Providers Payer Name Payer Address Payer Phone Subscriber Number Group Number Insured Name Patient Relationship to Insured Coverage Start Date Coverage End Date [employer] [place] [address] [place] [address] [phone] [id number] NOEMI BARAJAS Self - patient is the insured
== END 2024-11-04 10:16 | disposition home or self-care (01) ==
LOC: HO.US 10:15
PROVIDERS: PCP Internal Medicine; Visit Provider Internal Medicine
DX: M79.604 Pain in right leg (principal); M79.605 Pain in left leg; I83.009 Varicose veins of unspecified lower extremity with ulcer of unspecified site; L97.909 Non-pressure chronic ulcer of unspecified part of unspecified lower leg with unspecified severity
CPT/HCPCS: 93970

== ENCOUNTER → 2024-11-04 10:18 | Outpatient (BNV) | payer BC, SELFPAY | PROVIDERS: PCP Internal Medicine; Visit Provider Radiology Diagnostic Radiology | DX: I83.813 Varicose veins of bilateral lower extremities with pain (principal) | CPT/HCPCS: 93970 ==

== ENCOUNTER 2025-01-03 07:44 | Outpatient (REF) | payer BC, SELFPAY ==
--- OUTSIDE RECORDS SUMMARY | 2025-01-03 07:46 | XMS_ITS | Patient Health Record ---
Author Organization [facility] Address [address] [place] [address] Care Team Providers Care Process Safety Management Engineer Name Role Phone Debbi Evangelista Unavailable [phone] Reason For Referral No Information Medications Medication [...] Status W/U Status Risk Notes Problem Hyperlipidemia (85729948) Other and unspecified hyperlipidemia (272.4) Active confirmed Major Problem Benign essential hypertension (9639444) Essential hypertension, benign (401.1) Active confirmed Major Problem Gynecological examination normal (886328312155112) Routine gynecological examination (V72.31) Active confirmed Major Problem Screening for malignant neoplasm of colon (729658120) Special screening for malignant neoplasms, colon (V76.51) Active confirmed Major Plan Of Treatment No Information Insurance Providers Payer Name Payer Address Payer Phone Subscriber Number Group Number Insured Name Patient Relationship to Insured Coverage Start Date Coverage End Date [employer] [place] [address] [place] [address] [id number] NOEMI BARAJAS Self - patient is the insured
[2025-01-03 10:10] LABS: MANUAL DIFF FLAG NO
[2025-01-03 10:31] LABS: Hematocrit 38.5 % (37.0-47.0); Hemoglobin 13.2 g/dl (12.0-16.0); Imm Gran Abs Auto 0.01 X10*3/uL (0.00-0.03); Imm Gran Pct Auto 0.2 % (0.0-0.4); Lymphocytes Absolute Auto 1.2 X10*3/uL (1.2-4.9); Mean Corpuscular HGB Conc 34.3 g/dl (31.0-35.0); Mean Corpuscular Hemoglobin 31.2 pg (27.0-33.0); Mean Corpuscular Volume 91.0 fL (80.0-98.0); NRBC Abs Auto 0.000 X10*3/uL (0.0-0.012); NRBC Pct Auto 0.0 /100WBC (0.0-0.2); Platelet Count 162 X10*3/uL (160-400); Red Blood Count 4.23 X10*6/uL (4.20-5.50); White Blood Count 4.3 X10*3/uL (4.8-10.8)
[2025-01-03 11:15] LABS: Alanine Aminotransferase 29 U/L (0-31); Albumin Level 4.7 g/dL (3.5-5.0); Alkaline Phosphatase 56 U/L (39-117); Anion Gap 10 (12-20); Aspartate Amino Transferase 27 U/L (5-31); Blood Urea Nitrogen 16 mg/dL (9-16); Calcium 9.3 mg/dL (8.4-10.2); Carbon Dioxide 28 mmol/L (22-29); Chloride 105 mmol/L (96-108); Cholesterol 153 mg/dL (<200); Estimated Glomerular Filt Rate > 60; HDL Cholesterol 48 mg/dL (>40); Potassium 4.4 mmol/L (3.3-5.1); Sodium 139 mmol/L (135-145); Total Protein 6.9 g/dL (6.5-8.0); Triglycerides 80 mg/dL (<150)
[2025-01-03 11:23] LABS: Vitamin B12 396 pg/mL (200-900)
[2025-01-09 13:23] LABS: Vitamin D 25-OH, D2 <4 ng/mL; Vitamin D 25-OH, D3 54 ng/mL; Vitamin D 25-OH, Total 54 ng/mL (30-100)
== END 2025-01-03 07:45 | disposition home or self-care (01) ==
LOC: HO.HMGCLDS 07:44
PROVIDERS: PCP Internal Medicine; Visit Provider Internal Medicine
DX: I10 Essential (primary) hypertension (principal); E66.09 Other obesity due to excess calories; Z68.30 Body mass index [BMI] 30.0-30.9, adult; E78.9 Disorder of lipoprotein metabolism, unspecified; I25.10 Atherosclerotic heart disease of native coronary artery without angina pectoris; F41.1 Generalized anxiety disorder; M17.0 Bilateral primary osteoarthritis of knee; M79.604 Pain in right leg; M79.605 Pain in left leg; R73.01 Impaired fasting glucose
CPT/HCPCS: 36415; 80053; 80061; 82306; 82607; 83036; 84443; 85025

== ENCOUNTER 2025-01-08 14:51 | Outpatient (AMB) | payer BC, SELFPAY ==
[2025-01-08 14:54] VITALS: BP 120/62; PULSE 64; O2SAT 98; BMI 29.9
--- NOTE | 2025-01-08 14:54 | MHC.PC.OV ---
Vital Signs 01/08/25 14:54 Height 5 ft 6 in Weight 185 lb BMI 29.9 BP 120/62 Blood Pressure Location Lt brachial Position Sitting Pulse 64 Pulse Source Pulse Oximeter Pulse Oximetry (%) 98 Intake Visit Reasons: 9m follow up Allergies No Known Allergies Allergy (Verified 01/08/25 14:54) Medication List - Last Reconciled 01/08/25 by Duglas Nugent MD aspirin (Adult Aspirin Regimen) 81 mg PO DAILY atorvastatin 80 mg PO BEDTIME ezetimibe 10 mg PO DAILY lorazepam 0.5 mg PO DAILY PRN 30 days metoclopramide HCl (Reglan) 10 mg PO Q6H metoprolol succinate ER 200 mg PO DAILY 90 days nifedipine ER 60 mg PO DAILY 90 days omeprazole 20 mg PO BID 90 days sertraline 100 mg PO DAILY 90 days Tobacco use date assessed: 10/08/24 Dental Screening Dental Screen Date: 10/08/24 HPI 9m follow up HPI Details History The patient is a 59-year-old female presenting with medication refill needs and an assessment of treatment for anxiety. Anxiety: - The anxiety symptoms require daily management with lorazepam, taken in the morning. - The patient reports a longstanding usage of lorazepam and describes a situation of increased anxiety if medication is not taken. - Symptoms include constant worry and inability to sleep without the medication. - The patient experiences mental overactivity and elevated anxiety, which have been consistently managed with existing medication. - There is reluctance to change medication due to effective historical management. Medical History: - Anxiety disorder - Depression - Hypertension - Hyperlipidemia Medications: - Lorazepam 0.5 mg daily for anxiety - Nifedipine for hypertension - Omeprazole 20 mg twice daily for gastrointestinal discomfort - Sertraline 100 mg for depression - Atorvastatin 80 mg daily for lipid control - Zetia (ezetimibe) 10 mg as needed for nausea Problem List - Anxiety disorder - Depression - Hypertension - Hyperlipidemia Diagnostic results - Labs: Complete blood count normal (no anemia), electrolytes normal, kidney function tests normal, glucose levels normal, liver enzyme levels normal, thyroid function tests normal. Vitamin D levels pending. [place] of Care - Patient follows up with Dr. White for cardiac care. Patient Instructions - Consider trying buspirone as an alternative to lorazepam. - Discussed in detail , the possibility of medication changes, including benefits, - Continue with current medication regimen until further consultation. in 3 M Review of Systems. General: No fever no chills neurological: No headaches no dizziness ear nose throat: No sore throat no hearing difficulty no ear pain cardiovascular: No syncope, no chest pain, no palpitations gastrointestinal: No nausea vomiting or diarrhea endocrine: No polyuria polydipsia no heat intolerance genitourinary: No dysuria skin: No new complaints Physical Exam general: No acute distress HEENT: No acute findings neck: Supple respiratory system: Able to talk in full sentences, no audible wheeze no stridor cardiovascular: S1-S2 RRR gastrointestinal: No pain extremities: No new findings CARDIOLOGY ASSOCIATE: Alert awake oriented x3 motor sensory intact skin: Normal turgor PFSH Medical History Diarrhea Cough Hyperlipidemia GERD (gastroesophageal reflux disease) On beta hina at home Anxiety Dysphagia Smoking Other and unspecified hyperlipidemia Essential hypertension Atherosclerotic cardiovascular disease Surgical History History of esophagogastroduodenoscopy (EGD) H/O heart artery stent History of colonoscopy Status post lumbar microdiscectomy Family History Father Crohn's disease Colon cancer, Onset Age: 70 Mother No problems noted. Maternal Grandmother Unknown family medical history Maternal Grandfather Unknown family medical history Paternal Grandmother Unknown family medical history Brother Substance use disorder Brother No problems noted. Sister No problems noted. Sister No problems noted. Sister No problems noted. Son No problems noted. Daughter No problems noted. Social History Household Members: Spouse Housing: House Alcohol intake: current Alcohol intake frequency: holidays/special occasions only Patient Tobacco Use Status: Former Tobacco user Tobacco use type: Cigarette e-Cigarette/Vaping Use: Never Used service: No Current occupational status: retired Current occupation: [employer] Current occupational exposures/hazards: No Cognitive needs: No Hearing needs: No Vision needs: No Questionnaire PHQ-9 Over the last 2 weeks, how often have you been bothered by any of the following problems? 1. Little interest or pleasure in doing things: not at all 2. Feeling down, depressed, or hopeless: not at all 3. Trouble falling or staying asleep, or sleeping too much: several days 4. Feeling tired or having little energy: several days 5. Poor appetite or overeating: not at all 6. Feeling bad about yourself - or that you are a failure or have let yourself or your family down: several days 7. Trouble concentrating on things, such as reading the newspaper or watching television: several days 8. Moving or speaking so slowly that other people could have noticed. Or the opposite - being so fidgety or restless that you have been moving around a lot more than usual: not at all 9. Thoughts that you would be better off or of hurting yourself in some way: not at all Total score: 4 Depression Screening Interpretation: Negative Depression Screening Done: Yes 35507 - PHQ-9 Billing: Yes Source: Developed by Drs. Vijay Sutton, Nicole Frey, [place] and colleagues, with an educational rich from [employer]. Thrive Questionnaire Date Thrive assessed: 07/02/24 I am a: Patient What is your living situation today?: I have a steady place to live Within the past 12 months, did the food you bought not last and you didn't have the money to get more?: Never true Within the past 12 months, did you worry whether your food would run out before you got money to buy more?: Never true Do you have trouble paying for medicines?: No Do you have trouble getting transportation to medical appointments?: No Do you have trouble paying your heating and electricity bill?: No Do you have trouble taking care of your child, family member or friend?: No Do you have trouble with day-to-day activities such as bathing, preparing meals, shopping, managing finances, etc.?: No Are you currently unemployed and looking for a job?: No Are you interested in more education?: No Please select the resources that you would like help with: None Currently or been in a relationship where the following occur: No concerns reported THRIVE Score: 0 AUDIT C Alcohol Use Questionnaire (AUDIT-C) 1. How often do you have a drink containing alcohol?: 2-4 times a month 2. How many drinks containing alcohol do you have on a typical day when you are drinking?: 1 or 2 3. How often do you have six or more drinks on one occasion?: Never Total Score: 2 TANIA-7 AMB Questionnaire TANIA-7 Date TANIA - 7 assessed: 07/09/24 Feeling nervous, anxious, or on edge: 1 = Several days Not being able to stop or control worryin = Several days Worrying too much about different things: 2 = More than half the days Trouble relaxin = More than half the days Being so restless that it is hard to sit still: 2 = More than half the days Becoming easily annoyed or irritable: 2 = More than half the days Feeling afraid as if something awful might happen: 2 = More than half the days Total TANIA-7 score (0-4 normal; 5-9 mild; 10-14 moderate; 15-21 severe): 12 Source: Developed by Drs. Vijay Sutton, Nicole Frey, [place] and colleagues, with an educational rich from [employer]. TANIA-7 Assessment Billing TANIA-7 Assessment Tool: TANIA-7 Assessment 28821 Physical exam (Primary Care) Vital Signs: Last Vital Signs Pulse 64 01/08/25 14:54 BP 120/62 01/08/25 14:54 Pulse Ox 98 01/08/25 14:54 BMI result Body Mass Index 29.9 Tobacco/Smoking Status: Tobacco use Status Tobacco use date assessed 10/08/24 01/08/25 14:57 Patient Tobacco Use Status Former Tobacco user 01/08/25 14:57 Tobacco use type Cigarette 01/08/25 14:57 e-Cigarette/Vaping Use Never Used 01/08/25 14:57 PHQ-9: PHQ-9 Score PHQ-9: Total score 4 01/08/25 15:16 Depression Screening Interpretation: Negative Thrive Assessment: Date of Thrive Assessment Date Thrive assessed 07/02/24 01/08/25 14:57 Currently or been in a relationship where the following occur: No concerns reported Coding Level of Care Code Est Pt Level 4 (15134) Diagnoses Hypertension, essential I10 Anxiety, generalized F41.1 Lipid disorder E78.9 Impaired fasting blood sugar R73.01 Class 1 obesity due to excess calories with serious comorbidity and body mass index (BMI) of 30.0 to 30.9 in adult E66.09; Z68.30 Obesity classification: adult class 1 (BMI 30 - 34.9) Serious obesity comorbidity presence: with serious comorbidity Body mass index: BMI 30.0-30.9 Osteoarthritis of both knees, unspecified osteoarthritis type M17.0 Osteoarthritis type: unspecified Additional Codes PHQ-9 - 88056 - PHQ-9 Billing: Yes ([id number]) TANIA-7 Assessment Billing - TANIA-7 Assessment Tool: TANIA-7 Assessment 09192 ([id number]) Assessment & Plan Assessment & Plan (1) Hypertension, essential: Code(s): I10 - Essential (primary) hypertension Category: Medical (2) Anxiety, generalized: Code(s): F41.1 - Generalized anxiety disorder Category: Medical (3) Lipid disorder: Code(s): E78.9 - Disorder of lipoprotein metabolism, unspecified Category: Medical (4) Impaired fasting blood sugar: Code(s): R73.01 - Impaired fasting glucose Category: Medical (5) Obesity due to excess calories: Code(s): E66.09 - Other obesity due to excess calories Category: Medical Qualifiers: Obesity classification: adult class 1 (BMI 30 - 34.9) Serious obesity comorbidity presence: with serious comorbidity Body mass index: BMI 30.0-30.9 Qualified Code(s): E66.09 - Other obesity due to excess calories; Z68.30 - Body mass index [BMI] 30.0-30.9, adult (6) Osteoarthritis of knees, bilateral: Code(s): M17.0 - Bilateral primary osteoarthritis of knee Category: Medical Qualifiers: Osteoarthritis type: unspecified Qualified Code(s): M17.0 - Bilateral primary osteoarthritis of knee Plan History The patient is a 59-year-old female presenting with medication refill needs and an assessment of treatment for anxiety. Anxiety: - The anxiety symptoms require daily management with lorazepam, taken in the morning. - The patient reports a longstanding usage of lorazepam and describes a situation of increased anxiety if medication is not taken. - Symptoms include constant worry and inability to sleep without the medication. - The patient experiences mental overactivity and elevated anxiety, which have been consistently managed with existing medication. - There is reluctance to change medication due to effective historical management. Medical History: - Anxiety disorder - Depression - Hypertension - Hyperlipidemia Medications: - Lorazepam 0.5 mg daily for anxiety - Nifedipine for hypertension - Omeprazole 20 mg twice daily for gastrointestinal discomfort - Sertraline 100 mg for depression - Atorvastatin 80 mg daily for lipid control - Zetia (ezetimibe) 10 mg as needed for nausea Problem List - Anxiety disorder - Depression - Hypertension - Hyperlipidemia Diagnostic results - Labs: Complete blood count normal (no anemia), electrolytes normal, kidney function tests normal, glucose levels normal, liver enzyme levels normal, thyroid function tests normal. Vitamin D levels pending. [place] of Care - Patient follows up with Dr. White for cardiac care. Patient Instructions - Consider trying buspirone as an alternative to lorazepam. - Discussed in detail , the possibility of medication changes, including benefits, - Continue with current medication regimen until further consultation. in 3 M Medications: Refilled lorazepam 0.5 mg PO DAILY PRN 30 tabs 2RF anxiety 30 days F41.1 - Generalized anxiety disorder Discontinued metoclopramide HCl (Reglan) Discontinued Reason: Doctor's Order 10 mg PO Q6H 20 tabs 0RF nausea and vomiting R19.7 - Diarrhea, unspecified
== END 2025-01-08 15:58 | disposition home or self-care (01) ==
LOC: HO.HMCC 14:52
PROVIDERS: PCP Internal Medicine; Visit Provider Internal Medicine
DX: I10 Essential (primary) hypertension (principal); F41.1 Generalized anxiety disorder; E78.9 Disorder of lipoprotein metabolism, unspecified; R73.01 Impaired fasting glucose; E66.09 Other obesity due to excess calories; Z68.30 Body mass index [BMI] 30.0-30.9, adult; M17.0 Bilateral primary osteoarthritis of knee

== ENCOUNTER → 2025-01-08 14:51 | Outpatient (BNVA) | payer BC, SELFPAY | PROVIDERS: PCP Internal Medicine; Visit Provider Internal Medicine | DX: F41.1 Generalized anxiety disorder (principal); I10 Essential (primary) hypertension; E78.9 Disorder of lipoprotein metabolism, unspecified; R73.01 Impaired fasting glucose; E66.09 Other obesity due to excess calories; M17.0 Bilateral primary osteoarthritis of knee; R19.7 Diarrhea, unspecified; Z68.30 Body mass index [BMI] 30.0-30.9, adult | CPT/HCPCS: 96127 ==